=== PATIENT | male | born 1930 | race Caucasian/White ===

== ENCOUNTER 2019-05-22 19:00 | Inpatient (IN) | payer MEDICARE, MEDICAID ==
[~2019-05-22] VITALS: Ht 177.8 cm; Wt 71.8 kg
--- NOTE | 2019-05-22 19:39 | PHYS DOC ---
Past History Past Medical History: CAD Additional Past Medical Histor: dementia with behavioral disturbances Past Surgical History: Coronary Bypass Surgery Adult General Chief Complaint Chief Complaint: PSYCH EVALUATION HPI HPI Patient is an 88-year-old male who presents to the emergency department for medical prescreening for admission to the behavioral health unit, reportedly for refusing care, and aggressive behaviors that his nursing facility per the report that I have received. The report also states that the patient has been complaining of abdominal pain, although the chronicity of this is unknown. This might be a chronic behavioral issue as opposed to an acute medical problem He is complaining of abdominal pain here. He is somewhat of a poor historian, as he gives unreliable information and often answers the same question differently from minute to minute. He has not had any vomiting or diarrhea. He does not appear to have any chest pain. There are no alleviating or exacerbating factors to his symptoms otherwise. Review of Systems Review of Systems Unable to obtain review of systems, secondary to dementia. Physical Exam Physical Exam PHYSICAL EXAM: CONSTITUTIONAL: Well developed, well nourished HEAD: normocephalic, atraumatic EENT: PERRL, EOMI. Conjunctivae normal color, sclerae non-icteric; moist mucous membranes. NECK: Supple, non-tender; no meningismus. LUNGS: Lungs CTA, breathing even and unlabored. Normal air movement. HEART: Regular rate and rhythm, no murmur CHEST: No deformity; non-tender ABDOMEN: The abdomen is soft, normal bowel sounds are present, there is mild diffuse tenderness to palpation to the entire abdomen, without focal tenderness, rebound, or guarding, no masses or bruits. EXTREM: Normal ROM; no deformity, no calf tenderness. Normal pulses palpable in all extremities. There is no pedal edema. SKIN: No rash; no diaphoresis NEURO: Alert; normal speech, impaired cognition, disoriented to time; CN's grossly intact; strength grossly intact without focal deficit. BACK: No CVA TTP. Current Patient Data Lab Results Laboratory Tests Test 05/22/19 19:21 05/22/19 19:40 Urine Collection Type Unknown Urine Color Yellow Urine Clarity Hazy Urine pH 5.0 Urine Specific Procious 1.010 Urine Protein Neg Urine Glucose (UA) Neg mg/dL Urine Ketones (Stick) Neg mg/dL Urine Blood Neg Urine Nitrite Neg Urine Bilirubin Neg Urine Urobilinogen Dipstick 0.2 mg/dL Urine Leukocyte Esterase Trace Urine RBC 0 /HPF Urine WBC 11-20 /HPF Urine Squamous Epithelial Cells None /LPF Urine Bacteria Mod /HPF Urine Hyaline Casts Mod /HPF Urine Mucus Marked /LPF White Blood Count 9.0 x10^3/uL Red Blood Count 3.77 x10^6/uL Hemoglobin 11.3 g/dL Hematocrit 34.2 % Mean Corpuscular Volume 91 fL Mean Corpuscular Hemoglobin 30 pg Mean Corpuscular Hemoglobin Concent 33 g/dL Red Cell Distribution Width 18.0 % Platelet Count 268 x10^3/uL Neutrophils (%) (Auto) 72 % Lymphocytes (%) (Auto) 17 % Monocytes (%) (Auto) 8 % Eosinophils (%) (Auto) 3 % Basophils (%) (Auto) 1 % Neutrophils # (Auto) 6.5 x10^3uL Lymphocytes # (Auto) 1.5 x10^3/uL Monocytes # (Auto) 0.7 x10^3/uL Eosinophils # (Auto) 0.2 x10^3/uL Basophils # (Auto) 0.1 x10^3/uL Prothrombin Time 11.8 SEC Prothromb Time International Ratio 1.1 Activated Partial Thromboplast Time 27 SEC Sodium Level 132 mmol/L Potassium Level 3.9 mmol/L Chloride Level 97 mmol/L Carbon Dioxide Level 26 mmol/L Anion Gap 9 Blood Urea Nitrogen 22 mg/dL Creatinine 1.1 mg/dL Estimated GFR (Cockcroft-Gault) 63.5 BUN/Creatinine Ratio 20 Glucose Level 127 mg/dL Lactic Acid Level 1.4 mmol/L Calcium Level 9.0 mg/dL Magnesium Level 2.1 mg/dL Total Bilirubin 0.3 mg/dL Aspartate Amino Transf (AST/SGOT) 19 U/L Alanine Aminotransferase (ALT/SGPT) 13 U/L Alkaline Phosphatase 79 U/L Troponin I Quantitative < 0.017 ng/mL Total Protein 7.3 g/dL Albumin 3.3 g/dL Albumin/Globulin Ratio 0.8 Lipase 60 U/L Valproic Acid (Depakene) Level < 3 mcg/mL Valproic Acid Last Dose Date Unk Valproic Acid Last Dose Time Unk Current Medications Medications (Trade) Dose Ordered Sig/Rik Route PRN Reason Start Time Stop Time Status Last Admin Dose Admin Iohexol (Omnipaque 300 Mg/ml) 75 ml 1X ONCE IV 05/22/19 21:00 05/22/19 21:01 Ceftriaxone Sodium 1 gm/ Sodium Chloride 50 ml @ 100 mls/hr 1X ONCE IV 05/22/19 20:45 05/22/19 21:14 UNV EKG EKG []Ventricular paced rhythm at a rate of 74 beats for minute with QRS widening, without acute ischemic changes noted. Radiology/Procedures Radiology/Procedures ROCEDURE: CT ABDOMEN PELVIS WO CONTRAST Exam: CT abdomen and pelvis without contrast INDICATION: Abdominal pain TECHNIQUE: Sequential axial images through the abdomen and pelvis obtained without IV contrast. Sagittal and coronal reformatted images were reconstructed from the axial data and reviewed. Comparisons: None FINDINGS: Heart size is normal. No pericardial effusion. Visualized lung bases are clear. No pleural effusion. Evaluation of the solid organs is limited secondary to noncontrast technique as well as respiratory motion. Liver, spleen, pancreas, gallbladder and adrenals are unremarkable. No perinephric inflammation or hydronephrosis. No renal or ureteral calculi are identified. Bladder is distended and appears thin-walled. Prostate is not enlarged. Large and small bowel are unremarkable. Appendix is normal. Small hiatal hernia. No free intra-abdominal air or fluid. No obstruction. Abdominal aorta has a normal course and caliber. No enlarged intra-abdominal lymph nodes are identified. Dynamic hip screws at the right hip. No suspicious osseous lesions or acute fractures. IMPRESSION: 1. Limited evaluation secondary to degree of motion. No acute abnormality is identified. 2. Small hiatal hernia. ER physician preliminary chest x-ray interpretation: Subtle haziness in the left lung base of undetermined etiology without definite infiltrate, no other acute abnormalities noted. [] Course & Med Decision Making Course & Med Decision Making Pertinent Labs and Imaging studies reviewed. (See chart for details) [] Dragon Disclaimer Dragon Disclaimer This electronic medical record was generated, in whole or in part, using a voice recognition dictation system. Departure Departure: Impression: Primary Impression: Dementia with behavioral disturbance Additional Impressions: Urinary tract infection Chronic abdominal pain Disposition: ADMITTED INPATIENT (U) Condition: STABLE Referrals: LATOYA HARRIS MD (PCP) Problem Qualifiers SHASHANK SAUCEDA MD May 22, 2019 19:39
[2019-05-22 20:00] LABS: BASO # 0.1 x10^3/uL (0.0-0.2); BASO % 1 % (0-3); EOS # 0.2 x10^3/uL (0.0-0.7); EOS % 3 % (0-3); HEMATOCRIT 34.2 % (39.0-53.0); HEMOGLOBIN 11.3 g/dL (13.0-17.5); LYMPH # 1.5 x10^3/uL (1.0-4.8); LYMPH % 17 % (24-48); MEAN CORPUSCULAR HEMOGLOBIN 30 pg (25-35); MEAN CORPUSCULAR HGB CONC 33 g/dL (31-37); MEAN CORPUSCULAR VOLUME 91 fL (79-100); MONO # 0.7 x10^3/uL (0.0-1.1); MONO % 8 % (0-9); NEUT # 6.5 x10^3uL (1.8-7.7); NEUT % 72 % (31-73); PLATELET COUNT 268 x10^3/uL (140-400); RED BLOOD COUNT 3.77 x10^6/uL (4.30-5.70)
[2019-05-22 20:14] LABS: ALBUMIN 3.3 g/dL (3.4-5.0); ALBUMIN/GLOBULIN RATIO 0.8 (1.0-1.7); CREATININE 1.1 mg/dL (0.7-1.3); GFR 63.5; POTASSIUM 3.9 mmol/L (3.5-5.1); TOTAL BILIRUBIN 0.3 mg/dL (0.2-1.0); TOTAL PROTEIN 7.3 g/dL (6.4-8.2)
[2019-05-22 20:15] LABS: LIPASE 60 U/L (73-393); VAL ACID < 3 mcg/mL (50-100)
[2019-05-22 20:16] LABS: BACTERIA,URINE MOD /HPF (0-FEW); BILIRUBIN,URINE NEG (NEG); CLARITY,URINE HAZY; COLOR,URINE YELLOW; GLUCOSE,URINE NEG (NEG); NITRITE,URINE NEG (NEG); RBC,URINE 0 /HPF (0-2); UROBILINOGEN,URINE 0.2 mg/dL (0.2 mg/dL)
[2019-05-22 20:17] LABS: HYALINE CASTS, URINE MOD /HPF
[2019-05-22] MEDS ORDERED: IOHEXOL 300 MG/ML 75 ML VIAL. IV ONE (21:00)
--- NOTE | 2019-05-22 21:54 | RAD ---
Exam: CT abdomen and pelvis without contrast INDICATION: Abdominal pain TECHNIQUE: Sequential axial images through the abdomen and pelvis obtained without IV contrast. Sagittal and coronal reformatted images were reconstructed from the axial data and reviewed. Comparisons: None FINDINGS: Heart size is normal. No pericardial effusion. Visualized lung bases are clear. No pleural effusion. Evaluation of the solid organs is limited secondary to noncontrast technique as well as respiratory motion. Liver, spleen, pancreas, gallbladder and adrenals are unremarkable. No perinephric inflammation or hydronephrosis. No renal or ureteral calculi are identified. Bladder is distended and appears thin-walled. Prostate is not enlarged. Large and small bowel are unremarkable. Appendix is normal. Small hiatal hernia. No free intra-abdominal air or fluid. No obstruction. Abdominal aorta has a normal course and caliber. No enlarged intra-abdominal lymph nodes are identified. Dynamic hip screws at the right hip. No suspicious osseous lesions or acute fractures. IMPRESSION: 1. Limited evaluation secondary to degree of motion. No acute abnormality is identified. 2. Small hiatal hernia. Exposure: One or more of the following in the visualized dose reduction techniques were utilized for this examination: 1. Automated exposure control 2. Adjustment of the MA and/or KV according to patient size 3. Use of iterative of reconstructive technique Electronically signed by: Tana Dinero MD (05/22/2019 9:51 PM) [facility]
--- NOTE | 2019-05-22 22:53 | RAD ---
CHEST AP ONLY History: Weakness. Comparison: April 21, 2019 Findings: Linear left midlung scarring or atelectasis. No consolidation or pleural effusion. Normal heart size. Prior median sternotomy. Left sided pacemaker. No pneumothorax. Impression: 1. No acute cardiopulmonary process. Electronically signed by: John Paul Jones DO (05/22/2019 10:51 PM) [facility]
[2019-05-22] MEDS ORDERED: cefTRIAXone SODIUM 1 GM VIAL ONE (23:01)
[2019-05-22] MEDS ORDERED: LIDOCAINE 1% Multi-Dose 20 ML VIAL. ONE (23:01)
--- NOTE | 2019-05-22 23:29 | EKG ---
[address] [address] Test Date: 2019-05-22 Test Time: 21:06:52 Pat Name: EMILY BELTRE Department: Room: Gender: M Hardware Engineer: : [id number] Requested By: SHASHANK SAUCEDA Order Number: [id number] Reading MD: Sj Hansen MD Measurements Intervals Dennis Rate: 74 P: -21 ME: 188 QRS: -73 QRSD: 204 T: 95 QT: 474 QTc: 533 Interpretive Statements SINUS RHYTHM V-PACED Electronically Signed On 06-01-2019 12:01:12 CDT by Sj Hansen MD
[2019-05-22] MEDS ORDERED: cefTRIAXone IM 1 GM VIAL IM ONE (23:30)
[2019-05-22] MEDS ORDERED: PSYL1PAC7 PO (23:49)
[2019-05-22] MEDS ORDERED: LORA-254 PO (23:49)
[2019-05-22] MEDS ORDERED: SUCR1TAB35 PO (23:49)
[2019-05-22] MEDS ORDERED: CHOL10003 PO (23:49)
[2019-05-22] MEDS ORDERED: DICY20TA3 PO (23:49)
[2019-05-22] MEDS ORDERED: [UNRECOGNIZED DRUG - CODE] PO (23:49)
[2019-05-22] MEDS ORDERED: BISA10SU4 RC (23:49)
[2019-05-22] MEDS ORDERED: RANI-376 PO (23:49)
[2019-05-22] MEDS ORDERED: LORA10TA68 PO (23:49)
[2019-05-22] MEDS ORDERED: SUCR1TAB PO (23:49)
[2019-05-22] MEDS ORDERED: POLY17PO5 PO (23:49)
[2019-05-22] MEDS ORDERED: FURO-68 PO (23:49)
[2019-05-22] MEDS ORDERED: GUAI600T47 PO (23:49)
[2019-05-22] MEDS ORDERED: TRAZ-120 PO (23:49)
[2019-05-22] MEDS ORDERED: TRAM50TA PO ×2 (23:49)
[2019-05-22] MEDS ORDERED: ONDA4TAB7 PO (23:49)
[2019-05-22] MEDS ORDERED: SPIR25TA PO (23:49)
[2019-05-22] MEDS ORDERED: DOCU-109 PO (23:49)
[2019-05-22] MEDS ORDERED: CLOP75TA PO (23:49)
[2019-05-22] MEDS ORDERED: MIRA50TA PO (23:49)
[2019-05-22] MEDS ORDERED: CYAN-25 PO (23:49)
[2019-05-22] MEDS ORDERED: IPRA3AMP29 NEB (23:49)
[2019-05-22] MEDS ORDERED: TAMS0.4C97 PO (23:49)
[2019-05-22] MEDS ORDERED: AMLO1TAB12 PO (23:49)
[2019-05-22] MEDS ORDERED: ACET325T9 PO (23:49)
[2019-05-22] MEDS ORDERED: CARV6.25 PO (23:49)
[2019-05-22] MEDS ORDERED: ASPI325T8 PO (23:49)
[2019-05-22] MEDS ORDERED: MAG30ORA2 PO (23:49)
[2019-05-22] MEDS ORDERED: OMEP20TA8 PO (23:49)
[2019-05-22] MEDS ORDERED: BENZ1LOZ48 MM (23:49)
[2019-05-22] MEDS ORDERED: HYDR-2155 PO (23:49)
[2019-05-22] MEDS ORDERED: POTA20TA4 PO (23:49)
[2019-05-22] MEDS ORDERED: WHEA1POW5 PO (23:49)
[2019-05-23] MEDS ORDERED: POLYETHYLENE GLYCOL 3350 17 GM PACKET. PO PRN (00:30)
[2019-05-23] MEDS ORDERED: ACETAMINOPHEN 325 MG TABLET PO PRN ×2 (00:30)
[2019-05-23] MEDS ORDERED: METHYL SALICYLATE/MENTHOL TOPICAL OINTMENT 57GM TUBE. TP PRN (00:30)
[2019-05-23] MEDS ORDERED: BISACODYL 10 MG SUPP.RECT RC PRN (00:30)
[2019-05-23] MEDS ORDERED: BENZOCAINE/MENTHOL LOZNGE 18'S BOX. MM PRN (00:30)
[2019-05-23] MEDS ORDERED: MAGNESIUM HYDROXIDE 2,400 MG/30 ML ORAL.SUSP. PO PRN (00:30)
[2019-05-23] MEDS ORDERED: traMADol 50 MG TABLET PO PRN (00:30)
--- NOTE | 2019-05-23 00:49 | NUR ---
Admission Note with Justification for Admission to [facility] Patient admitted to [facility] for protective oversight for emergency stabilization of acute psychiatric crisis. Pt admitted from: [facility] Facility Mode of arrival: EMS Accompanied By: EMS Precipitating behaviors that initiated intake and admission: Yelling and cussing at staff and other patients. Refusing cares and medications. Description of failure of out patient attempts at stabilization in previous setting list behavior and medication trials: Refusing to take medications Behaviors and assessment findings upon admission: The patient refused to answer approximately half of his assessment questions and was demanding when he did choose to interact with staff. The patient complained of discomfort during any and all interactions with staff. Plan: Admit for protective oversight for adjustment and stabilization of medications, behaviors and mood. Intense treatment regimen including groups, medication adjustments, therapy, consistent regimen for ADL's, self care, and sleep hygiene. Daily monitoring by Inpatient staff, Psychiatry, and Medical Physician.
[2019-05-23 00:58] VITALS: BP 162/79
[2019-05-23] MEDS: ONDANSETRON ODT 4 MG TAB.RAPDIS PO PRN ×2 (03:47→07:52)
[2019-05-23] MEDS: IPRATRPIUM/ALBUTEROL 0.5/2.5MG 3 ML NEBU. NEB SCH ×3 (05:57→20:57)
[2019-05-23 06:25] VITALS: BP 134/88
[2019-05-23] MEDS: HYDROcodone/APAP 5/325MG 1 TAB TABLET PO PRN (07:52)
[2019-05-23] MEDS: LORazepam 0.5 MG TABLET PO PRN (07:53)
[2019-05-23] MEDS: PSYLLIUM SEED (WITH SUGAR) PACKET. PO SCH ×2 (08:16→20:52)
[2019-05-23] MEDS: ASPIRIN 325 MG TABLET PO SCH (08:17)
[2019-05-23] MEDS: MAG HYDROX/AL HYDROX/SIMETH 30 ML ORAL.SUSP PO SCH ×4 (08:17→19:46)
[2019-05-23] MEDS: SUCRALFATE 1 GM TABLET. PO SCH ×4 (08:17→19:55)
[2019-05-23] MEDS: CHOLECALCIFEROL (VITAMIN D3) 1,000 UNIT TABLET PO SCH (08:17)
[2019-05-23] MEDS: FUROSEMIDE 40 MG TABLET PO SCH (08:18)
[2019-05-23] MEDS: LOSARTAN 50 MG TABLET. PO SCH (08:19)
[2019-05-23] MEDS: PANTOPRAZOLE 40 MG TABLET. PO SCH (08:19)
[2019-05-23] MEDS: amLODIPine BESYLATE 5 MG TABLET PO SCH (08:20)
[2019-05-23] MEDS: CYANOCOBALAMIN (VITAMIN B-12) 1,000 MCG TABLET. PO SCH (08:20)
[2019-05-23] MEDS: CLOPIDOGREL BISULFATE 75 MG TABLET PO SCH (08:20)
[2019-05-23] MEDS: POTASSIUM CHLORIDE 20 MEQ TABLET.ER. PO SCH (08:21)
[2019-05-23] MEDS: CETIRIZINE HCL 10 MG TABLET PO SCH (08:21)
[2019-05-23] MEDS: DOCUSATE SODIUM 100 MG CAPSULE PO SCH ×2 (08:22→19:45)
[2019-05-23] MEDS: SPIRONOLACTONE 25 MG TABLET PO SCH (08:23)
[2019-05-23] MEDS: CARVEDILOL 6.25 MG TABLET PO SCH ×2 (08:25→17:23)
[2019-05-23] MEDS: traMADol 50 MG TABLET PO SCH ×2 (08:26→19:47)
--- NOTE | 2019-05-23 09:00 | NUR ---
Nursing note: Pt was compliant with his assessment in the dining room and was in his room for medication administration. He was compliant with taking them whole. Pt continuously calls out for help and needing to go lay down in bed. Staff continues to explain to him that he needs to stay out of his room.
--- NOTE | 2019-05-23 09:33 | NUR ---
Nursing Note: Staff reported that pt was yelling that his stomach was hurting and disturbing the other pt's. When pt asked to rate his pain he immediately began to yell and swear, " I don't do that Goddamn scale. My stomach hurts. It hurts!" Attempted to explain to pt that we were hoping to understand how badly he was hurting in order to treat him. Pt then began to yell louder and to call this nurse and the nurse being oriented to the unit. It was necessary to remove pt from the dining room. Attempted to explained to pt that we understood that he was in pain and that it was being addressed. Pt continued to yell and swear, saying "Go to hell you bitch! Fuck You!! Get me something for the pain!!!" Pt was given medication for pain and for anxiety, and then taken to dining room to eat breakfast. Pt soon after returning to dining room began to yell, "Take me to the bathroom, I need to poop." Pt was taken to his bathroom and helped onto the toilet. Instructed to push button when he was finished. Pt immediately asked to be helped off toilet before staff had left bathroom. Suggested pt stay for a moment to completely evacuate bowels. Pt was not pleased with this idea and yelled and called staff names.
[2019-05-23] MEDS: MIRABEGRON 25 MG TAB.ER.24H PO SCH (09:42)
--- NOTE | 2019-05-23 10:00 | NUR ---
Nursing note: As staff walked by pt in the hallway, the pt called out for help and said he needed to go lie down. When staff explained to him why he couldn't go lay down, he responded with "You're an ass. You've also got a big ass." Pt was redirected and taken to the day room at this time.
--- NOTE | 2019-05-23 11:45 | NUR ---
SW contacted Kaylen, Clear Coat Sprayer at [facility], to discuss pt. and share this SW contact information.
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
[2019-05-23 13:50] LABS: THYROID STIM HORMONE (TSH) 2.652 uIU/mL (0.358-3.740)
[2019-05-23 16:03] VITALS: BP 114/64
--- NOTE | 2019-05-23 19:50 | NUR ---
Nursing note: Pt has a large bruise on his buttocks and flinches when touched. It was reported that the patient put himself on the floor today. Order placed for xray.
[2019-05-23] MEDS: TAMSULOSIN 0.4 MG CAP.ER.24H. PO SCH (19:55)
[2019-05-23] MEDS: traZODone 50 MG TABLET. PO SCH (19:56)
--- NOTE | 2019-05-23 20:57 | NUR ---
Nursing note: Assumed care of pt in his room where he is c/o pain in hip/buttocks. Waiting for xray results. Pt is complaint with meds while one at a time. He didn't want to take them but agreed. He is alert to name only.
[2019-05-23] MEDS ORDERED: PSYLLIUM SEED (WITH SUGAR) PACKET. PO SCH (21:00)
[2019-05-23] MEDS ORDERED: NON FORMULARY ITEM (Ranitidine Hcl (Zantac) 150 MG) PO SCH (21:00)
--- NOTE | 2019-05-23 21:57 | PDOC ---
Exam Note: José Miguel Note: Please also refer to the separate dictated note~for this date of service dictated separately. Discussed the patient with Nursing staff reviewed the chart.~Reviewed interim history and current functioning. Reviewed vital signs,~Labs/ Radiology~and current medications noted below. Continue current treatment with the changes noted in the dictated addendum note Assessment: Vital Signs/I&O: Vital Signs Date Time Temp Pulse Resp B/P (MAP) Pulse Ox O2 Delivery O2 Flow Rate FiO2 05/23/19 20:58 95 Room Air 05/23/19 17:23 65 114/64 05/23/19 16:03 97.3 16 Current Medications: Meds: Current Medications Medications (Trade) Dose Ordered Sig/Rik Route PRN Reason Start Time Stop Time Status Last Admin Dose Admin Ceftriaxone Sodium (Rocephin Im) 1 gm 1X ONCE IM 05/22/19 23:30 05/22/19 23:31 DC 05/22/19 22:40 Lorazepam (Ativan) 0.5 mg PRN Q6HRS PRN PO ANXIETY / AGITATION 05/23/19 00:30 05/23/19 07:53 Aspirin (Neil Aspirin) 325 mg DAILY PO 05/23/19 09:00 05/23/19 08:17 Carvedilol (Coreg) 6.25 mg BIDWMEALS PO 05/23/19 08:00 05/23/19 17:23 Vitamin D (Vitamin D3) 1,000 unit DAILY PO 05/23/19 09:00 05/23/19 08:17 Clopidogrel Bisulfate (Plavix) 75 mg DAILY PO 05/23/19 09:00 05/23/19 08:20 Cyanocobalamin (Vitamin B-12) 1,000 mcg DAILY PO 05/23/19 09:00 05/23/19 08:20 Docusate Sodium (Colace) 100 mg BID PO 05/23/19 09:00 05/23/19 19:45 Furosemide (Lasix) 40 mg DAILY PO 05/23/19 09:00 05/23/19 08:18 Guaifenesin (Mucinex Er) 600 mg BID PO 05/23/19 09:00 05/23/19 19:46 Acetaminophen/ Hydrocodone Bitart (Lortab 5/325) 1 tab PRN Q6HRS PRN PO PAIN 05/23/19 00:30 05/23/19 07:52 Albuterol/ Ipratropium (Duoneb) 3 ml Q4HRS W/A NEB 05/23/19 06:00 05/23/19 20:57 Al Hydroxide/Mg Hydroxide (Mylanta Plus Xs) 30 ml QHS PO 05/23/19 21:00 05/23/19 19:46 Potassium Chloride (Klor-Con) 20 meq DAILY PO 05/23/19 09:00 05/23/19 08:21 Psyllium Hydrophilic Mucilloid (Metamucil) 1 pkt QHS PO 05/23/19 21:00 05/23/19 20:52 DC 05/23/19 19:45 Spironolactone (Aldactone) 25 mg DAILY PO 05/23/19 09:00 05/23/19 08:23 Sucralfate (Carafate) 1 gm QHS PO 05/23/19 21:00 05/23/19 19:55 Sucralfate (Carafate) 1 gm TIDBFRMEAL PO 05/23/19 07:30 05/23/19 16:59 Tamsulosin HCl (Flomax) 0.8 mg QHS PO 05/23/19 21:00 05/23/19 19:55 Tramadol HCl (Ultram) 50 mg BID PO 05/23/19 09:00 05/23/19 19:47 Amlodipine Besylate (Norvasc) 5 mg DAILY PO 05/23/19 09:00 05/23/19 08:20 Cetirizine HCl (ZyrTEC) 10 mg DAILY PO 05/23/19 09:00 05/23/19 08:21 Al Hydroxide/Mg Hydroxide (Mylanta Plus Xs) 5 ml QID PO 05/23/19 09:00 05/23/19 20:49 DC 05/23/19 17:23 Mirabegron (Myrbetriq) 50 mg DAILY PO 05/23/19 09:00 05/23/19 09:42 Pantoprazole Sodium (Protonix) 40 mg DAILYAC PO 05/23/19 07:30 05/23/19 08:19 Ondansetron HCl (Zofran Odt) 4 mg PRN Q6HRS PRN PO NAUSEA/VOMITING 05/23/19 00:45 05/23/19 07:52 Psyllium Hydrophilic Mucilloid (Metamucil) 1 pkt BID PO 05/23/19 09:00 05/23/19 08:16 Trazodone HCl (Desyrel) 50 mg QHS PO 05/23/19 21:00 05/23/19 19:56 Losartan Potassium (Cozaar) 100 mg DAILY PO 05/23/19 09:00 05/23/19 08:19 I have reviewed the current psychotropics carefully including drug interactions. Risk benefit ratio favors no change other than as noted in my dictated progress note. Diagnosis: Problems: (1) Anxiety disorder (2) Dementia in Alzheimer's disease with delusions (3) Dementia in Alzheimer's disease with depression (4) Dementia, vascular, with delusions (5) Dementia, vascular, with depression (6) Bipolar affective, mixed, sev w/ psych WANDA NDIAYE MD May 23, 2019 21:57
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
--- NOTE | 2019-05-23 23:07 | RAD ---
HIP LEFT 2V WITH PELVIS History: Fall. Pain. Technique: AP view the pelvis and 2 additional views of the left hip. Comparison: CT May 22, 2019. Findings: Internal fixation right proximal femur. Normal alignment. No fracture. Extensive vascular calcific. Lower lumbar spondylosis. Postop changes left proximal leg. Impression: 1. No acute osseous abnormality. Electronically signed by: John Paul Jones DO (05/23/2019 11:03 PM) [id number]
[2019-05-24 01:06] LABS: THYROXINE 6.9 ug/dL (4.5-12.0)
--- NOTE | 2019-05-24 04:24 | CONS ---
DATE OF CONSULTATION: REASON FOR CONSULTATION: Medical management. HISTORY OF PRESENT ILLNESS: The patient is an 88-year-old resident at [facility], who was admitted on account of being verbally abusive to staff and peers, refuses cares, refuses labs and medication. Peers are afraid of him. A change in his behavior from his normal, he is usually nicer, yelling "my stomach hurts." Has had GI workup that was unremarkable. The patient was admitted for inpatient psychiatric stabilization. PAST MEDICAL HISTORY: Significant for vitamin deficiency, diverticulitis, hypocalcemia and congestive heart failure. He also has hyperlipidemia. PAST PSYCHIATRIC HISTORY: Significant for bipolar disorder, insomnia as well as anxiety and depression. ALLERGIES: He is allergic to BEE VENOM. MEDICATIONS: He is currently on following medications: He is on loratadine 10 mg daily, dicyclomine 20 mg every 6 hours as needed, DuoNeb 0.5/3.5 mg in 3 mL by nebulizer every 4 hours, Flomax 0.8 mg at bedtime, Plavix 75 mg once a day, carvedilol 6.25 mg twice a day with meals, amlodipine/valsartan for Exforge 1 tablet once a day, spironolactone 25 mg once a day, aspirin 325 mg once a day, hydrocodone/APAP 5/325 one tablet every 6 hours, tramadol 50 mg twice a day, tramadol 50 mg every 6 hours, Tylenol 650 mg every 4 hours, trazodone 50 mg at bedtime, lorazepam 0.5 mg every 6 hours, potassium chloride 20 mEq daily, Mucinex 600 mg twice a day, furosemide 40 mg daily, benzocaine/menthol for Cepacol sore throat lozenges 1 every hour as needed, Mylanta 15 mL as needed 4 times a day, milk of magnesia 30 mL daily p.r.n. for constipation, bisacodyl 10 mg suppository rectally daily p.r.n. for constipation, Colace 100 mg twice a day, polyethylene glycol 17 grams 3 times a day as needed, Metamucil 3.4 g p.o. at bedtime, wheat dextrin for Benefiber 1 packet twice a day, ondansetron 4 mg every 6 hours, ranitidine 150 mg at bedtime, sucralfate 1 g at bedtime, sucralfate 3 times a day with meals. He is on omeprazole 20 mg twice a day, Myrbetriq 50 mg daily, vitamin B12 1000 mcg daily, cholecalciferol 1000 International Unit once a day. FAMILY HISTORY: Noncontributory. SOCIAL HISTORY: He is a resident at [facility]. He apparently has a son and daughter. He was an ex-smoker, quit years ago. He does not drink alcohol or use any recreational drugs. PHYSICAL EXAMINATION: GENERAL: On examining him, he looked well and was clearly in no apparent respiratory distress. No pallor, jaundice, cyanosis or thyromegaly. No jugular venous distention. No lower limb edema. VITAL SIGNS: His heart rate was 92, blood pressure was 162/79, temperature was 97.9, respiratory rate was 27 and oxygen saturation was 93% on room air. HEAD, EYES, EARS, NOSE AND THROAT: Showed normocephalic, atraumatic. NECK: Supple. HEART: Showed normal first and second heart sounds. No gallop or murmur. CHEST: Clear to auscultation. No crepitation, rhonchi. ABDOMEN: Distended, soft, nontender. NEUROLOGIC: He is awake, alert, responding appropriately. All cranial nerves intact. EXTREMITIES: He moves extremities without difficulty, though is mostly bed bound, wheelchair bound. LABORATORY DATA: Showed a white cell count 9000, hemoglobin 11, hematocrit 34, MCV 91, and platelet count 268,000. His chemistry showed a serum sodium of 132, potassium 3.9, chloride 97, bicarbonate 26, anion gap of 9, BUN 22, creatinine 1.1, estimated GFR was 63 mL per minute. His glucose 127. Lactic acid was 1.4, calcium was 9, magnesium was 2.1. Total bilirubin, AST, ALT, alkaline phosphatase were normal. Total protein was 7.3, albumin was 3.3. His prothrombin time, INR and aPTT were normal. Urinalysis showed that the urine was yellow, hazy with a pH of 5, specific gravity of 1.010. The urine was negative for protein, glucose, ketone, blood, nitrite and leukocyte esterase. There are 0 rbc's, 11-20 wbc's, moderate amount of bacteria, and his toxic screen showed that his valproic acid is less than 3 mcg/mL. His chest x-ray showed no acute cardiopulmonary process, and CT scan of the abdomen and pelvis showed that the heart size is normal, no pericardial effusion. Visualized lung bases are clear, no pleural effusion. Evaluation of the solid organs is limited secondary to noncontrast technique as well as respiratory motion. His liver, spleen, pancreas, gallbladder and adrenals are unremarkable. No perinephric inflammation or hydronephrosis, no renal or ureteral calculi are identified. Bladder is distended and appears thin walled. Prostate is not enlarged. His large and small bowel are unremarkable. Appendix normal. Small hiatal hernia. No free intraabdominal air or fluid. No obstruction. Abdominal aorta has a normal course and caliber. No enlarged intraabdominal lymph nodes are identified. He has a dynamic hip screw within the right hip. No suspicious osseous lesion or acute fracture. IMPRESSION: In summary, this is an 88-year-old male patient who was admitted on account of being verbally abusive to staff and peers, refuses care, labs and medications: The peers are afraid of him, a change in behavior from his usually nicer attitude. He is yelling "my stomach hurts." He has a full GI workup, which was unremarkable. The patient is known to have anxiety, depression, and major depressive disorder. He is here for inpatient psychiatric stabilization. He is generally medically stable. All his vital signs are within acceptable range. His lab work is also within normal range. I will continue all his current medications and we will follow all his lab work that are still pending and make any necessary recommendation. Thank you Dr. Carbajal for allowing me to participate in the care of this patient. JONNA LAMAS MD DR: JEANNINE/andrew JOB#: [id number] / [id number]
[2019-05-24] MEDS: IPRATRPIUM/ALBUTEROL 0.5/2.5MG 3 ML NEBU. NEB SCH ×5 (04:59→20:15)
[2019-05-24 06:31] VITALS: BP 125/71
[2019-05-24] MEDS: ASPIRIN 325 MG TABLET PO SCH (07:36)
[2019-05-24] MEDS: traMADol 50 MG TABLET PO SCH ×2 (07:37→19:40)
[2019-05-24] MEDS: CLOPIDOGREL BISULFATE 75 MG TABLET PO SCH (07:38)
[2019-05-24] MEDS: PSYLLIUM SEED (WITH SUGAR) PACKET. PO SCH ×2 (07:38→19:39)
[2019-05-24] MEDS: amLODIPine BESYLATE 5 MG TABLET PO SCH (07:38)
[2019-05-24] MEDS: SUCRALFATE 1 GM TABLET. PO SCH ×4 (07:38→19:38)
[2019-05-24] MEDS: SPIRONOLACTONE 25 MG TABLET PO SCH (07:39)
[2019-05-24] MEDS: CHOLECALCIFEROL (VITAMIN D3) 1,000 UNIT TABLET PO SCH (07:39)
[2019-05-24] MEDS: CYANOCOBALAMIN (VITAMIN B-12) 1,000 MCG TABLET. PO SCH (07:39)
[2019-05-24] MEDS: FUROSEMIDE 40 MG TABLET PO SCH (07:40)
[2019-05-24] MEDS: LOSARTAN 50 MG TABLET. PO SCH (07:40)
[2019-05-24] MEDS: PANTOPRAZOLE 40 MG TABLET. PO SCH (07:40)
[2019-05-24] MEDS: CARVEDILOL 6.25 MG TABLET PO SCH ×2 (07:41→17:14)
[2019-05-24] MEDS: DOCUSATE SODIUM 100 MG CAPSULE PO SCH ×2 (07:41→19:38)
[2019-05-24] MEDS: POTASSIUM CHLORIDE 20 MEQ TABLET.ER. PO SCH (07:41)
[2019-05-24] MEDS: CETIRIZINE HCL 10 MG TABLET PO SCH (07:42)
[2019-05-24] MEDS: MIRABEGRON 25 MG TAB.ER.24H PO SCH (07:43)
[2019-05-24] MEDS: MAG HYDROX/AL HYDROX/SIMETH 30 ML ORAL.SUSP PO SCH ×4 (07:48→19:40)
[2019-05-24 16:19] VITALS: BP 132/80
--- NOTE | 2019-05-24 17:17 | NUR ---
Had been demanding and agitated in a.m. Compliant with meds and breakfast. Began yelling and cursing after breakfast in the dayroom. Demanding to go to bed, cursing out aide and other staff. Pt. put to bed and slept through lunch, now at supper time c/o stomach cramping and eating only bites of food. Missed one neb treatment, will give another one now after supper. Has been compliant with meds this day. No sexual behaviors
[2019-05-24] MEDS: ONDANSETRON ODT 4 MG TAB.RAPDIS PO PRN (17:36)
[2019-05-24] MEDS: TAMSULOSIN 0.4 MG CAP.ER.24H. PO SCH (19:39)
[2019-05-24] MEDS: traZODone 50 MG TABLET. PO SCH (19:39)
--- NOTE | 2019-05-24 23:05 | NUR ---
Nursing note: Assumed care of pt in the day room tonight. He was calmer than earlier in the day but continued to ask to go to bed. He was advised he had to take a shower. He was accepting of this but had somatic complaints such as being cold and sleepy. He was compliant with meds, assessment, and shower. No agitation and no cursing that I heard. He had no c/o pain, no sexually inappropriate behaviors.
--- NOTE | 2019-05-24 23:06 | PDOC ---
Exam Note: José Miguel Note: Please also refer to the separate dictated note~for this date of service dictated separately.~Patient seen individually. Discussed the patient with Nursing staff reviewed the chart.~Reviewed interim history and current functioning. Reviewed vital signs,~Labs/ Radiology~and current medications noted below. Continue current treatment with the changes noted in the dictated addendum note Assessment: Vital Signs/I&O: Vital Signs Date Time Temp Pulse Resp B/P (MAP) Pulse Ox O2 Delivery O2 Flow Rate FiO2 05/24/19 20:40 18 95 Room Air 05/24/19 17:14 82 132/80 05/24/19 16:19 97.7 I & O 05/23/19 05/23/19 05/24/19 14:59 22:59 06:59 Intake Total 480 ml 0 ml Balance 480 ml 0 ml Current Medications: Meds: Current Medications Medications (Trade) Dose Ordered Sig/Rik Route PRN Reason Start Time Stop Time Status Last Admin Dose Admin Al Hydroxide/Mg Hydroxide (Mylanta Plus Xs) 5 ml TID PO 05/24/19 09:00 05/24/19 16:45 I have reviewed the current psychotropics carefully including drug interactions. Risk benefit ratio favors no change other than as noted in my dictated progress note. Diagnosis: Problems: (1) Anxiety disorder (2) Dementia in Alzheimer's disease with delusions (3) Dementia in Alzheimer's disease with depression (4) Dementia, vascular, with delusions (5) Dementia, vascular, with depression (6) Bipolar affective, mixed, sev w/ psych WANDA NDIAYE MD May 24, 2019 23:06
[2019-05-25 04:55] VITALS: BP 113/71
[2019-05-25] MEDS: IPRATRPIUM/ALBUTEROL 0.5/2.5MG 3 ML NEBU. NEB SCH ×5 (05:27→22:32)
[2019-05-25] MEDS: SUCRALFATE 1 GM TABLET. PO SCH ×4 (08:04→19:48)
[2019-05-25] MEDS: PSYLLIUM SEED (WITH SUGAR) PACKET. PO SCH ×2 (08:06→19:49)
[2019-05-25] MEDS: CARVEDILOL 6.25 MG TABLET PO SCH ×2 (08:07→17:17)
[2019-05-25] MEDS: traMADol 50 MG TABLET PO SCH ×2 (08:08→19:47)
[2019-05-25] MEDS: MAG HYDROX/AL HYDROX/SIMETH 30 ML ORAL.SUSP PO SCH ×4 (08:08→20:05)
[2019-05-25] MEDS: CYANOCOBALAMIN (VITAMIN B-12) 1,000 MCG TABLET. PO SCH (08:09)
[2019-05-25] MEDS: CHOLECALCIFEROL (VITAMIN D3) 1,000 UNIT TABLET PO SCH (08:09)
[2019-05-25] MEDS: CLOPIDOGREL BISULFATE 75 MG TABLET PO SCH (08:09)
[2019-05-25] MEDS: CETIRIZINE HCL 10 MG TABLET PO SCH (08:09)
[2019-05-25] MEDS: ASPIRIN 325 MG TABLET PO SCH (08:09)
[2019-05-25] MEDS: LOSARTAN 50 MG TABLET. PO SCH (08:09)
[2019-05-25] MEDS: SPIRONOLACTONE 25 MG TABLET PO SCH (08:10)
[2019-05-25] MEDS: PANTOPRAZOLE 40 MG TABLET. PO SCH (08:10)
[2019-05-25] MEDS: FUROSEMIDE 40 MG TABLET PO SCH (08:10)
[2019-05-25] MEDS: DOCUSATE SODIUM 100 MG CAPSULE PO SCH ×2 (08:10→19:47)
[2019-05-25] MEDS: amLODIPine BESYLATE 5 MG TABLET PO SCH (08:11)
[2019-05-25] MEDS: MIRABEGRON 25 MG TAB.ER.24H PO SCH (08:12)
[2019-05-25] MEDS: POTASSIUM CHLORIDE 20 MEQ TABLET.ER. PO SCH (08:12)
[2019-05-25 16:20] VITALS: BP 113/60
[2019-05-25] MEDS: ONDANSETRON ODT 4 MG TAB.RAPDIS PO PRN (18:40)
[2019-05-25] MEDS: TAMSULOSIN 0.4 MG CAP.ER.24H. PO SCH (19:47)
[2019-05-25] MEDS: traZODone 50 MG TABLET. PO SCH (20:05)
--- NOTE | 2019-05-25 23:14 | NUR ---
Nursing Note: Assumed care of pt. this evening, he was sitting out in the day room. He has been cooperative, demanding in the sense that he will keep asking to go to bed until he get to, and withdrawn to self. He has been compliant with taking his HS meds whole. No agitation or aggression noted at this time.
[2019-05-26] MEDS: IPRATRPIUM/ALBUTEROL 0.5/2.5MG 3 ML NEBU. NEB SCH ×5 (06:00→20:30)
[2019-05-26 06:19] VITALS: BP 129/80
--- NOTE | 2019-05-26 07:57 | PN ---
DATE: 05/24/2019 PSYCHIATRIC PROGRESS NOTE This late entry 05/24/2019 covers elements not covered in my initial note. SUBJECTIVE: I met with the patient at length individually in the morning of 05/24/2019. The patient slept 8 hours the previous night. He remains confused and anxious. REVIEW OF SYSTEMS: No CV, , pulmonary, eye, ENT system symptoms on review. MENTAL STATUS EXAM: Oriented to himself. Insight, judgment, recent and remote memory, attention, concentration, fund of knowledge poor, consistent with his diagnosis. IMPRESSION: Major neurocognitive disorder, Alzheimer, vascular with delusion, depression, behavioral disturbance, anxiety disorder, unspecified, impulse control disorder, unspecified. PLAN: No change from initial note. Maintain trazodone 50 mg at bedtime and Ativan p.r.n. We will consider adding Depakote as a mood stabilizer for his marked agitation, aggression, behavioral dyscontrol, prompting admission. We may also consider adding an atypical antipsychotic, possibly an SSRI agent, but we will make this decision after baseline assessment. Dr. Mills will resume care of the patient during my vacation over the next few days. MAN Gabriela NDIAYE MD DR: JONATAN/andrew JOB#: [id number] / [id number]
[2019-05-26] MEDS: HYDROcodone/APAP 5/325MG 1 TAB TABLET PO PRN (07:58)
[2019-05-26] MEDS: DICYCLOMINE HCL 20 MG TABLET PO PRN ×2 (07:58→19:59)
[2019-05-26] MEDS: CETIRIZINE HCL 10 MG TABLET PO SCH (07:59)
[2019-05-26] MEDS: CHOLECALCIFEROL (VITAMIN D3) 1,000 UNIT TABLET PO SCH (07:59)
[2019-05-26] MEDS: PANTOPRAZOLE 40 MG TABLET. PO SCH (07:59)
[2019-05-26] MEDS: PSYLLIUM SEED (WITH SUGAR) PACKET. PO SCH ×2 (07:59→19:59)
[2019-05-26] MEDS: MAG HYDROX/AL HYDROX/SIMETH 30 ML ORAL.SUSP PO SCH ×4 (07:59→20:06)
[2019-05-26] MEDS: FUROSEMIDE 40 MG TABLET PO SCH (07:59)
[2019-05-26] MEDS: ASPIRIN 325 MG TABLET PO SCH (08:00)
[2019-05-26] MEDS: POTASSIUM CHLORIDE 20 MEQ TABLET.ER. PO SCH (08:00)
[2019-05-26] MEDS: traMADol 50 MG TABLET PO SCH ×2 (08:00→20:00)
[2019-05-26] MEDS: LOSARTAN 50 MG TABLET. PO SCH (08:00)
[2019-05-26] MEDS: DOCUSATE SODIUM 100 MG CAPSULE PO SCH ×2 (08:00→20:02)
[2019-05-26] MEDS: CLOPIDOGREL BISULFATE 75 MG TABLET PO SCH (08:00)
[2019-05-26] MEDS: SUCRALFATE 1 GM TABLET. PO SCH ×4 (08:00→20:10)
[2019-05-26] MEDS: SPIRONOLACTONE 25 MG TABLET PO SCH (08:01)
[2019-05-26] MEDS: CARVEDILOL 6.25 MG TABLET PO SCH ×2 (08:01→17:42)
[2019-05-26] MEDS: CYANOCOBALAMIN (VITAMIN B-12) 1,000 MCG TABLET. PO SCH (08:01)
[2019-05-26] MEDS: amLODIPine BESYLATE 5 MG TABLET PO SCH (08:01)
[2019-05-26] MEDS: MIRABEGRON 25 MG TAB.ER.24H PO SCH (09:00)
--- NOTE | 2019-05-26 09:47 | NUR ---
PATIENT LOCATED IN DINING ROOM AT TIME OF ASSESSMENT AND MEDICATION ADMINISTRATION. PATIENT IS PLEASANT AND COOPERATIVE WITH ASSESSMENT AND MEDICATIONS WHOLE WITH WATER. PATIENT COMPLAINS OF ABDOMINAL PAIN THIS AM. PT IS GIVEN PRN HYDROCODONE AND PRN BENTYL FOR ABD PAIN. PATIENT DOES HAVE SOME BEHAVIORS THIS AM ASKING OVER AND OVER TO USE BATHROOM AND TELLING WASTE MACHINE OPERATOR TO "GO FUCK YOURSELF". PATIENT ESCORTED TO [facility] TO DEESCALATE. PT DID HAVE A BM THIS AM AND IS NOW RESTING AT THIS TIME. WILL CONTINUE TO MONITOR.
--- NOTE | 2019-05-26 15:36 | PN ---
DATE: 05/25/2019 SUBJECTIVE: The patient was seen today, met with the staff, chart reviewed, and covering for Dr. Carbajal. The patient was admitted 3 days ago because of change in his behavior, staying in bed all the time, withdrawn. He was also recently has been verbally abusive to staff and peers refusing cares and also refusing labs and medications. The patient also threatening towards other residents. The patient also has been presenting with multiple physical complaints. OBSERVATION: VITAL SIGNS: Temperature 97.4, blood pressure 113/71, pulse 72, respiration 18, O2 sat 94% and slept about 6 hours last night. CURRENT MEDICATIONS: Reviewed. Currently on trazodone 50 mg at night. The patient under observation continued to monitor his behaviors and decide whether he needs to be on antidepressant or mood stabilizer. ASSESSMENT: Major neurocognitive disorder, most likely Alzheimer's, vascular with delusions, depression, behavioral disturbances; anxiety disorder, unspecified; bipolar disorder, mixed with psychotic features. PLAN: To continue with the current treatment plan. LANIE MILLER MD DR: HAL/andrew JOB#: [id number] / [id number]
--- NOTE | 2019-05-26 16:25 | NUR ---
ACTIVITY THERAPY ASSESSMENT Completed based on observation, notes and attempted interview. Pt. was in the secured hallway at this time, yelling out, complaining of pain, wanting to lay down. He was banging on the window in distress and was unable to answer assessment questions. Pt. often wants to lay down in bed and has little interest in leisure activities. He has been observed to read the newspaper and enjoys the [employer]. Per notes, Pt. likes baseball and used to drink for leisure. On the unit, Pt. is combative, aggressive, cusses at staff and is difficult to redirect. He has put himself on the floor and has demonstrated attention seeking behaviors. SPINNING BATH PATROLLER observed Pt. threaten to urinate on the floor if he was not allowed to go to bed. Pt. is hard of hearing and it's difficult to capture and keep his attentions. Initial goal aimed to increase engagement: Pt. will participate in at least three Activity Therapy individual sessions or groups before discharge.
[2019-05-26 16:43] VITALS: BP 121/58
[2019-05-26] MEDS: traZODone 50 MG TABLET. PO SCH (20:00)
[2019-05-26] MEDS: TAMSULOSIN 0.4 MG CAP.ER.24H. PO SCH (20:08)
[2019-05-26] MEDS: busPIRone 5 MG TABLET. PO SCH (20:10)
--- NOTE | 2019-05-27 00:37 | NUR ---
Nursing Note: Assumed care of pt. this evening, he was lying in his bed. He has been calm, cooperative, withdrawn to self, and at times demanding. He has been compliant with taking his HS meds whole this evening. No agitation or aggression noted at this time.
[2019-05-27] MEDS: IPRATRPIUM/ALBUTEROL 0.5/2.5MG 3 ML NEBU. NEB SCH ×4 (05:18→23:54)
--- NOTE | 2019-05-27 05:33 | PN ---
DATE: 05/26/2019 SUBJECTIVE: The patient was seen today, met with the staff, chart reviewed. Staff reports he is still attention seeking, intrusive, demanding, also having multiple somatic complaints. The patient is on wheelchair. Staff reports no falls. OBSERVATION: VITAL SIGNS: Temperature 97.1, blood pressure 128/80, pulse 80, respiration 18, O2 sat 96%. GENERAL: Slept about 8 hours last night. The patient's appetite is fairly good. The patient weighs 156.8 pounds. CURRENT MEDICATIONS: Include trazodone 50 mg at night. LABORATORY DATA: The patient's lab reviewed. ASSESSMENT: 1. 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 2. Anxiety disorder, unspecified. 3. Bipolar disorder, mixed with psychotic features. PLAN: To continue with the treatment. The patient will be started on buspirone 5 mg t.i.d. for his anxiety and agitation. LANIE MILLER MD DR: HAL/andrew JOB#: [id number] / [id number]
[2019-05-27] MEDS: DICYCLOMINE HCL 20 MG TABLET PO PRN (06:07)
[2019-05-27 06:10] VITALS: BP 128/71
[2019-05-27] MEDS: PANTOPRAZOLE 40 MG TABLET. PO SCH (10:05)
[2019-05-27] MEDS: MIRABEGRON 25 MG TAB.ER.24H PO SCH (10:05)
[2019-05-27] MEDS: amLODIPine BESYLATE 5 MG TABLET PO SCH (10:06)
[2019-05-27] MEDS: POTASSIUM CHLORIDE 20 MEQ TABLET.ER. PO SCH (10:06)
[2019-05-27] MEDS: CETIRIZINE HCL 10 MG TABLET PO SCH (10:06)
[2019-05-27] MEDS: traMADol 50 MG TABLET PO SCH ×2 (10:06→21:20)
[2019-05-27] MEDS: MAG HYDROX/AL HYDROX/SIMETH 30 ML ORAL.SUSP PO SCH ×4 (10:07→21:21)
[2019-05-27] MEDS: PSYLLIUM SEED (WITH SUGAR) PACKET. PO SCH ×2 (10:07→21:21)
[2019-05-27] MEDS: SUCRALFATE 1 GM TABLET. PO SCH ×5 (10:07→21:21)
[2019-05-27] MEDS: busPIRone 5 MG TABLET. PO SCH ×3 (10:07→21:20)
[2019-05-27] MEDS: CLOPIDOGREL BISULFATE 75 MG TABLET PO SCH (10:08)
[2019-05-27] MEDS: LOSARTAN 50 MG TABLET. PO SCH (10:08)
[2019-05-27] MEDS: ASPIRIN 325 MG TABLET PO SCH (10:08)
[2019-05-27] MEDS: CARVEDILOL 6.25 MG TABLET PO SCH ×2 (10:08→16:16)
[2019-05-27] MEDS: CHOLECALCIFEROL (VITAMIN D3) 1,000 UNIT TABLET PO SCH (10:09)
[2019-05-27] MEDS: FUROSEMIDE 40 MG TABLET PO SCH (10:09)
[2019-05-27] MEDS: SPIRONOLACTONE 25 MG TABLET PO SCH (10:09)
[2019-05-27] MEDS: DOCUSATE SODIUM 100 MG CAPSULE PO SCH ×2 (10:09→21:20)
[2019-05-27] MEDS: CYANOCOBALAMIN (VITAMIN B-12) 1,000 MCG TABLET. PO SCH (10:09)
[2019-05-27] MEDS: LORazepam 0.5 MG TABLET PO PRN (16:15)
[2019-05-27 16:22] VITALS: BP 126/62
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
[2019-05-27] MEDS: traZODone 50 MG TABLET. PO SCH (21:20)
[2019-05-27] MEDS: TAMSULOSIN 0.4 MG CAP.ER.24H. PO SCH (21:21)
--- NOTE | 2019-05-28 00:32 | NUR ---
Nursing Note the patient was located in his room for his medication and assessment. the patient took his medication whole and was appropriate with this nurse during interactions. The patient is currently sleeping in his room.
[2019-05-28 05:59] VITALS: BP 142/84
[2019-05-28] MEDS: IPRATRPIUM/ALBUTEROL 0.5/2.5MG 3 ML NEBU. NEB SCH ×4 (06:00→19:58)
--- NOTE | 2019-05-28 07:19 | PN ---
DATE: 05/27/2019 SUBJECTIVE: The patient was seen today, met with the staff, chart reviewed. The patient is staying in bed most of the time. The patient is complaining of feeling tired. He has been withdrawn, isolative and also highly anxious. OBSERVATION: VITAL SIGNS: Temperature 97.4, blood pressure 128/71, pulse 80, respirations 22, O2 sat 95%. GENERAL: Slept about 7.75 hours. MEDICATIONS: The patient's current medications include trazodone 50 mg at night, BuSpar 5 mg t.i.d. and Ativan 0.5 mg q. 6 hours p.r.n. The patient is not having any side effects to medications. LABORATORY DATA: The patient's lab is reviewed. ASSESSMENT: 1. 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 2. Anxiety disorder, unspecified. 3. Bipolar disorder, mixed with psychotic features. PLAN: To continue with the treatment. LANIE MILLER MD DR: HAL/andrew JOB#: [id number] / [id number]
[2019-05-28] MEDS: SUCRALFATE 1 GM TABLET. PO SCH ×4 (08:31→21:56)
[2019-05-28] MEDS: PANTOPRAZOLE 40 MG TABLET. PO SCH (08:31)
[2019-05-28] MEDS: CETIRIZINE HCL 10 MG TABLET PO SCH (08:32)
[2019-05-28] MEDS: CHOLECALCIFEROL (VITAMIN D3) 1,000 UNIT TABLET PO SCH (08:32)
[2019-05-28] MEDS: CYANOCOBALAMIN (VITAMIN B-12) 1,000 MCG TABLET. PO SCH (08:32)
[2019-05-28] MEDS: CLOPIDOGREL BISULFATE 75 MG TABLET PO SCH (08:32)
[2019-05-28] MEDS: LOSARTAN 50 MG TABLET. PO SCH (08:33)
[2019-05-28] MEDS: DOCUSATE SODIUM 100 MG CAPSULE PO SCH ×2 (08:33→21:56)
[2019-05-28] MEDS: busPIRone 5 MG TABLET. PO SCH ×3 (08:33→21:56)
[2019-05-28] MEDS: FUROSEMIDE 40 MG TABLET PO SCH (08:34)
[2019-05-28] MEDS: ASPIRIN 325 MG TABLET PO SCH (08:34)
[2019-05-28] MEDS: SPIRONOLACTONE 25 MG TABLET PO SCH (08:34)
[2019-05-28] MEDS: PSYLLIUM SEED (WITH SUGAR) PACKET. PO SCH ×2 (08:34→21:55)
[2019-05-28] MEDS: POTASSIUM CHLORIDE 20 MEQ TABLET.ER. PO SCH (08:35)
[2019-05-28] MEDS: CARVEDILOL 6.25 MG TABLET PO SCH ×2 (08:35→16:54)
[2019-05-28] MEDS: MAG HYDROX/AL HYDROX/SIMETH 30 ML ORAL.SUSP PO SCH ×4 (08:35→21:55)
[2019-05-28] MEDS: MIRABEGRON 25 MG TAB.ER.24H PO SCH (08:36)
[2019-05-28] MEDS: amLODIPine BESYLATE 5 MG TABLET PO SCH (08:36)
[2019-05-28] MEDS: LORazepam 0.5 MG TABLET PO PRN ×2 (08:36→14:03)
[2019-05-28] MEDS: traMADol 50 MG TABLET PO SCH ×2 (08:50→21:55)
--- NOTE | 2019-05-28 11:35 | NUR ---
Patient was in the dining room when he was getting frustrated with staff, started calling staff "bitches". Patient is still obsessive with stomach pain, and needed to go to the bathroom. Patient's stomach is soft, hyperactive bowel sounds, patient just had a BM. PRN ativan given @0836. Patient is now in the dayroom, will continue to monitor.
--- NOTE | 2019-05-28 12:13 | NUR ---
Patient is very angry that he is not allowed to lay in his bed all morning. Nurse encouraged patient to attend activities but he declines and curses at staff. Patient spent the morning sitting near the [facility] verbally abusing staff. And demanding to be put to bed. Patient has been constantly cursing at nurse saying "You fucking bitch", "you look like you been fucked" and other equally insulting comments.
--- NOTE | 2019-05-28 12:48 | NUR ---
WEEKLY ACTIVITY THERAPY NOTE Date of Admission: 05/23/2019 Date of AT Assessment: 05/27/2019 Goal aimed: to increase engagement Initial Goal: Pt. will participate in at least three Activity Therapy individual sessions or groups before discharge. Weekly progress towards goal: on track, 0/3 before goal was set, two groups before goal was set (1012- [employer] party, 05/26- exercise/ balloon volleyball Group participation level: full in both groups Weekly highlights: enjoying the [employer] game and [employer] Behaviors observed: CROW, wanting to lay in bed, yelling out in pain (stomach), cussing at staff, secured hallway on Sunday, threatening to urinate in hallway Plan: no change to goal Beneficial adaptations: hearing amplifier possibly
--- NOTE | 2019-05-28 14:03 | NUR ---
LYNDSAY spoke to pt. daughter, Jocelynn, regarding pt. progress. LYNDSAY contacted JULIO Abdullahi at [facility], to share pt. progress. At this time, no discharge date has been determined, as pt. behaviors continue. Addendum: 05/28/19 at 1435 by LINDSEY UMANA Pt. daughter did share pt. enjoys reading the newspaper.
--- NOTE | 2019-05-28 14:11 | NUR ---
WEEKLY NOTE Pt. remains confused and anxious. Pt. is demanding towards staff, requesting to lay in his room. Pt. has been verbally abusive towards staff and becomes angry when he does not get what he wants. Pt. has been compliant with medications. Pt. is preoccupied with needing to use the restroom and complains of stomach discomfort. Pt. will discharge back to [facility] once stable.
--- NOTE | 2019-05-28 15:52 | NUR ---
Patient was upset with staff, yelling, calling them bitches and disrupting group PRN ativan given @1403. Patient is currently in the quiet black, will continue to monitor.
[2019-05-28 16:16] VITALS: BP 142/62
[2019-05-28] MEDS: TAMSULOSIN 0.4 MG CAP.ER.24H. PO SCH (21:55)
[2019-05-28] MEDS: traZODone 50 MG TABLET. PO SCH (21:56)
--- NOTE | 2019-05-29 00:02 | NUR ---
Nursing Note The patient was located in his room for his medication and assessment. the patient was compliant with his medication and took them whole. the patient was appropriate during interactions with this nurse but was irritable earlier in the shift during interactions with peers and other staff members. the patient is currently sleeping in his room.
[2019-05-29] MEDS: IPRATRPIUM/ALBUTEROL 0.5/2.5MG 3 ML NEBU. NEB SCH ×3 (06:26→15:56)
[2019-05-29 06:36] VITALS: BP 140/72
--- NOTE | 2019-05-29 09:13 | PN ---
DATE: 05/28/2019 SUBJECTIVE: The patient was seen today, met with the staff, chart reviewed. The patient continues to complain of feeling tired and weak, appears depressed, and stays in bed most of the time. OBSERVATION: VITAL SIGNS: Temperature 97.2, blood pressure 142/84, pulse 65, respirations 20, O2 sat 95%. GENERAL: Slept about 6 hours last night. CURRENT MEDICATIONS: The patient's current medications include trazodone 50 mg at night, BuSpar 5 mg t.i.d. and Ativan 0.5 mg q. 6 hours p.r.n. The patient will be considered for antidepressants. LABORATORY DATA: The patient's lab is reviewed. The patient's hemoglobin A1c was 6. ASSESSMENT: 1. 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 2. Anxiety disorder, unspecified. 3. Bipolar disorder, mixed with psychotic features. PLAN: To continue with the treatment. LANIE MILLER MD DR: HAL/andrew JOB#: [id number] / [id number]
[2019-05-29] MEDS: SUCRALFATE 1 GM TABLET. PO SCH ×4 (09:20→21:11)
[2019-05-29] MEDS: PANTOPRAZOLE 40 MG TABLET. PO SCH (09:20)
[2019-05-29] MEDS: SPIRONOLACTONE 25 MG TABLET PO SCH (09:21)
[2019-05-29] MEDS: busPIRone 5 MG TABLET. PO SCH ×3 (09:21→21:11)
[2019-05-29] MEDS: ASPIRIN 325 MG TABLET PO SCH (09:21)
[2019-05-29] MEDS: CARVEDILOL 6.25 MG TABLET PO SCH ×2 (09:21→16:42)
[2019-05-29] MEDS: DOCUSATE SODIUM 100 MG CAPSULE PO SCH ×2 (09:21→21:12)
[2019-05-29 09:22] LABS: BASO # 0.1 x10^3/uL (0.0-0.2); BASO % 1 % (0-3); EOS # 0.2 x10^3/uL (0.0-0.7); EOS % 2 % (0-3); HEMATOCRIT 36.6 % (39.0-53.0); HEMOGLOBIN 12.2 g/dL (13.0-17.5); LYMPH # 1.2 x10^3/uL (1.0-4.8); LYMPH % 12 % (24-48); MEAN CORPUSCULAR HEMOGLOBIN 30 pg (25-35); MEAN CORPUSCULAR HGB CONC 33 g/dL (31-37); MEAN CORPUSCULAR VOLUME 91 fL (79-100); MONO # 0.6 x10^3/uL (0.0-1.1); MONO % 6 % (0-9); NEUT % 79 % (31-73); PLATELET COUNT 317 x10^3/uL (140-400); RED BLOOD COUNT 4.03 x10^6/uL (4.30-5.70); RED CELL DISTRIBUTION WIDTH 18.6 % (11.5-14.5); WHITE BLOOD COUNT 10.1 x10^3/uL (4.0-11.0)
[2019-05-29] MEDS: POTASSIUM CHLORIDE 20 MEQ TABLET.ER. PO SCH (09:22)
[2019-05-29] MEDS: LOSARTAN 50 MG TABLET. PO SCH (09:22)
[2019-05-29] MEDS: FUROSEMIDE 40 MG TABLET PO SCH (09:22)
[2019-05-29] MEDS: MIRABEGRON 25 MG TAB.ER.24H PO SCH (09:23)
[2019-05-29] MEDS: MAG HYDROX/AL HYDROX/SIMETH 30 ML ORAL.SUSP PO SCH ×4 (09:23→21:11)
[2019-05-29] MEDS: PSYLLIUM SEED (WITH SUGAR) PACKET. PO SCH ×2 (09:23→21:10)
--- NOTE | 2019-05-29 09:23 | NUR ---
LYNDSAY received a call pt. daughter, Syl, regarding pt. Syl shared, "This is him coping." He has been "normal his whole life." He has a "strong personality." She went on to explain pt. was "weened" off of the medications he was on and only left on "Ativan". Over "Labor Day" he had a "Psychotic Break". "He had a fantastic period of time in November/December." "He was the best thing ever." She also shared pt. "probably won't join groups." Pt. "chooses" to live at the [facility] because his is there. Pt. "fractured two ribs in August". Pt. daughter reports the [facility] made medication changes and had not notified them, and she feels that is why he is acting the way he is.
[2019-05-29] MEDS: CETIRIZINE HCL 10 MG TABLET PO SCH (09:24)
[2019-05-29] MEDS: CHOLECALCIFEROL (VITAMIN D3) 1,000 UNIT TABLET PO SCH (09:24)
[2019-05-29] MEDS: CYANOCOBALAMIN (VITAMIN B-12) 1,000 MCG TABLET. PO SCH (09:24)
[2019-05-29] MEDS: CLOPIDOGREL BISULFATE 75 MG TABLET PO SCH (09:24)
[2019-05-29] MEDS: traMADol 50 MG TABLET PO SCH ×2 (09:26→21:12)
[2019-05-29] MEDS: amLODIPine BESYLATE 5 MG TABLET PO SCH (09:26)
[2019-05-29 09:29] LABS: ALBUMIN 3.4 g/dL (3.4-5.0); ALBUMIN/GLOBULIN RATIO 0.9 (1.0-1.7); CREATININE 1.1 mg/dL (0.7-1.3); GFR 63.5; POTASSIUM 4.4 mmol/L (3.5-5.1); TOTAL BILIRUBIN 0.4 mg/dL (0.2-1.0); TOTAL PROTEIN 7.2 g/dL (6.4-8.2)
--- NOTE | 2019-05-29 13:37 | NUR ---
Pt is cooperative with medication and assessment. He is withdrawn to his room. During lunch he became demanding and cussed at staff he had to be removed from the dining room and taken to the [facility] for deescalation. No hallucinations or delusions noted.
[2019-05-29 16:21] VITALS: BP 123/68
[2019-05-29] MEDS: TAMSULOSIN 0.4 MG CAP.ER.24H. PO SCH (21:11)
[2019-05-29] MEDS: traZODone 50 MG TABLET. PO SCH (21:12)
[2019-05-30] MEDS: IPRATRPIUM/ALBUTEROL 0.5/2.5MG 3 ML NEBU. NEB SCH ×6 (01:04→20:57)
--- NOTE | 2019-05-30 04:28 | NUR ---
Nursing Note The patient was located in his room for his medication and assessment. the patient was compliant with his medication and took them whole. the patient was appropriate during interactions with this nurse and peers. the patient is currently sleeping in his room.
[2019-05-30 06:06] VITALS: BP 141/83
[2019-05-30] MEDS: PSYLLIUM SEED (WITH SUGAR) PACKET. PO SCH ×2 (08:42→21:30)
[2019-05-30] MEDS: ASPIRIN 325 MG TABLET PO SCH (08:42)
[2019-05-30] MEDS: SPIRONOLACTONE 25 MG TABLET PO SCH (08:44)
[2019-05-30] MEDS: CARVEDILOL 6.25 MG TABLET PO SCH ×2 (08:44→16:54)
[2019-05-30] MEDS: CLOPIDOGREL BISULFATE 75 MG TABLET PO SCH (08:44)
[2019-05-30] MEDS: LOSARTAN 50 MG TABLET. PO SCH (08:44)
[2019-05-30] MEDS: amLODIPine BESYLATE 5 MG TABLET PO SCH (08:45)
[2019-05-30] MEDS: busPIRone 5 MG TABLET. PO SCH ×3 (08:45→21:29)
[2019-05-30] MEDS: MIRABEGRON 25 MG TAB.ER.24H PO SCH (08:45)
[2019-05-30] MEDS: CETIRIZINE HCL 10 MG TABLET PO SCH (08:45)
[2019-05-30] MEDS: FUROSEMIDE 40 MG TABLET PO SCH (08:46)
[2019-05-30] MEDS: POTASSIUM CHLORIDE 20 MEQ TABLET.ER. PO SCH (08:46)
[2019-05-30] MEDS: PANTOPRAZOLE 40 MG TABLET. PO SCH (08:46)
[2019-05-30] MEDS: CYANOCOBALAMIN (VITAMIN B-12) 1,000 MCG TABLET. PO SCH (08:46)
[2019-05-30] MEDS: traMADol 50 MG TABLET PO SCH ×2 (08:46→21:32)
[2019-05-30] MEDS: CHOLECALCIFEROL (VITAMIN D3) 1,000 UNIT TABLET PO SCH (08:47)
[2019-05-30] MEDS: MAG HYDROX/AL HYDROX/SIMETH 30 ML ORAL.SUSP PO SCH ×4 (08:47→21:30)
[2019-05-30] MEDS: DOCUSATE SODIUM 100 MG CAPSULE PO SCH ×2 (08:47→21:29)
[2019-05-30] MEDS: SUCRALFATE 1 GM TABLET. PO SCH ×4 (08:47→21:29)
--- NOTE | 2019-05-30 11:29 | NUR ---
Nursing note: Pt was in the dining room for meds and assessment. He was compliant with taking his meds whole with encouragement. He was preoccupied with his stomach pain, stating "This is the worst it's ever been." We informed him the meds we were giving him would help with his stomach pain. He was appreciative of the care that was being given to him. He is currently in the day room and has had no agitation or name calling today. Will continue to monitor.
--- NOTE | 2019-05-30 15:43 | PN ---
DATE: 05/29/2019 SUBJECTIVE: The patient was seen today, met with the staff, chart reviewed. Staff reports the patient continues to have problems, increased anxiety, verbally abusive, attention seeking constantly complaining. OBSERVATION: VITAL SIGNS: Temperature 98, blood pressure 140/72, pulse 76, respirations 18, O2 sat 96%. GENERAL: Slept about 6 hours last night. The patient's appetite is fair. MEDICATIONS: The patient's current medications include trazodone 50 mg at night, BuSpar 5 mg three times a day, and Ativan 0.5 mg every 6 hours as needed. The patient is not having any side effects. LABORATORY DATA: The patient's lab reviewed. ASSESSMENT: 1. 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 2. Anxiety disorder, unspecified. 3. Bipolar disorder, mixed with psychotic features. PLAN: To continue with the treatment. LANIE MILLER MD DR: HAL/andrew JOB#: [id number] / [id number]
[2019-05-30 17:18] VITALS: BP 109/67
[2019-05-30] MEDS: TAMSULOSIN 0.4 MG CAP.ER.24H. PO SCH (21:00)
[2019-05-30] MEDS: traZODone 50 MG TABLET. PO SCH (21:29)
--- NOTE | 2019-05-31 03:59 | PN ---
DATE: 05/30/2019 SUBJECTIVE: The patient was seen today, met with the staff, chart reviewed. The patient continues having behavior problems fluctuating. He isolates himself and angry with the staff. Also, verbally abusive at times. The patient also has multiple physical complaints, complains of feeling tired and weak, not wanting to participate in any activities. OBSERVATION: VITAL SIGNS: Temperature 97.7, blood pressure 141/83, pulse 78, respirations 20, O2 sat 97%. Slept about 6 hours last night. The patient is not having any side effects. LABORATORY DATA: The patient's lab reviewed. ASSESSMENT: 1. 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 2. Anxiety disorder, unspecified. 3. Bipolar disorder, mixed with psychotic features. PLAN: To continue with the treatment. LANIE MILLER MD DR: HAL/andrew JOB#: [id number] / [id number]
[2019-05-31] MEDS: IPRATRPIUM/ALBUTEROL 0.5/2.5MG 3 ML NEBU. NEB SCH ×5 (05:31→22:00)
[2019-05-31] MEDS: CARVEDILOL 6.25 MG TABLET PO SCH ×2 (08:32→16:33)
[2019-05-31] MEDS: SUCRALFATE 1 GM TABLET. PO SCH ×4 (08:32→20:44)
[2019-05-31] MEDS: PANTOPRAZOLE 40 MG TABLET. PO SCH (08:32)
[2019-05-31] MEDS: busPIRone 5 MG TABLET. PO SCH ×3 (08:33→20:43)
[2019-05-31] MEDS: SPIRONOLACTONE 25 MG TABLET PO SCH (08:33)
[2019-05-31] MEDS: ASPIRIN 325 MG TABLET PO SCH (08:33)
[2019-05-31] MEDS: DOCUSATE SODIUM 100 MG CAPSULE PO SCH ×2 (08:33→20:43)
[2019-05-31] MEDS: POTASSIUM CHLORIDE 20 MEQ TABLET.ER. PO SCH (08:33)
[2019-05-31] MEDS: FUROSEMIDE 40 MG TABLET PO SCH (08:34)
[2019-05-31] MEDS: MAG HYDROX/AL HYDROX/SIMETH 30 ML ORAL.SUSP PO SCH ×4 (08:34→20:44)
[2019-05-31] MEDS: traMADol 50 MG TABLET PO SCH ×2 (08:35→20:43)
[2019-05-31] MEDS: amLODIPine BESYLATE 5 MG TABLET PO SCH (08:35)
[2019-05-31] MEDS: MIRABEGRON 25 MG TAB.ER.24H PO SCH (08:35)
[2019-05-31] MEDS: CLOPIDOGREL BISULFATE 75 MG TABLET PO SCH (08:35)
[2019-05-31] MEDS: CETIRIZINE HCL 10 MG TABLET PO SCH (08:36)
[2019-05-31] MEDS: CYANOCOBALAMIN (VITAMIN B-12) 1,000 MCG TABLET. PO SCH (08:36)
[2019-05-31] MEDS: CHOLECALCIFEROL (VITAMIN D3) 1,000 UNIT TABLET PO SCH (08:36)
[2019-05-31] MEDS: PSYLLIUM SEED (WITH SUGAR) PACKET. PO SCH ×2 (09:00→20:44)
[2019-05-31] MEDS: LOSARTAN 50 MG TABLET. PO SCH (09:00)
--- NOTE | 2019-05-31 09:27 | NUR ---
Pt is cooperative with medication and assessment. During breakfast pt became demanding and cussed at staff calling them "asses" stating "you are a big ass help, you have a big ass." He had to be removed from the dining room and redirected to his room for deescalation. No hallucinations or delusions noted.
[2019-05-31 15:49] VITALS: BP 107/67
[2019-05-31] MEDS: TAMSULOSIN 0.4 MG CAP.ER.24H. PO SCH (20:43)
[2019-05-31] MEDS: traZODone 50 MG TABLET. PO SCH (20:43)
[2019-06-01] MEDS: IPRATRPIUM/ALBUTEROL 0.5/2.5MG 3 ML NEBU. NEB SCH ×4 (05:29→15:42)
[2019-06-01 06:20] VITALS: BP 112/68
[2019-06-01] MEDS: PANTOPRAZOLE 40 MG TABLET. PO SCH (08:29)
[2019-06-01] MEDS: SUCRALFATE 1 GM TABLET. PO SCH ×4 (08:29→20:48)
[2019-06-01] MEDS: CARVEDILOL 6.25 MG TABLET PO SCH ×2 (08:30→17:28)
[2019-06-01] MEDS: ASPIRIN 325 MG TABLET PO SCH (08:31)
[2019-06-01] MEDS: busPIRone 5 MG TABLET. PO SCH ×3 (08:31→20:47)
[2019-06-01] MEDS: DOCUSATE SODIUM 100 MG CAPSULE PO SCH ×2 (08:31→20:48)
[2019-06-01] MEDS: SPIRONOLACTONE 25 MG TABLET PO SCH (08:31)
[2019-06-01] MEDS: POTASSIUM CHLORIDE 20 MEQ TABLET.ER. PO SCH (08:33)
[2019-06-01] MEDS: FUROSEMIDE 40 MG TABLET PO SCH (08:34)
[2019-06-01] MEDS: MIRABEGRON 25 MG TAB.ER.24H PO SCH (08:34)
[2019-06-01] MEDS: MAG HYDROX/AL HYDROX/SIMETH 30 ML ORAL.SUSP PO SCH ×4 (08:34→20:48)
[2019-06-01] MEDS: CETIRIZINE HCL 10 MG TABLET PO SCH (08:35)
[2019-06-01] MEDS: amLODIPine BESYLATE 5 MG TABLET PO SCH (08:35)
[2019-06-01] MEDS: traMADol 50 MG TABLET PO SCH ×2 (08:35→20:47)
[2019-06-01] MEDS: CHOLECALCIFEROL (VITAMIN D3) 1,000 UNIT TABLET PO SCH (08:35)
[2019-06-01] MEDS: CYANOCOBALAMIN (VITAMIN B-12) 1,000 MCG TABLET. PO SCH (08:35)
[2019-06-01] MEDS: CLOPIDOGREL BISULFATE 75 MG TABLET PO SCH (08:35)
[2019-06-01] MEDS: PSYLLIUM SEED (WITH SUGAR) PACKET. PO SCH ×2 (09:00→20:48)
[2019-06-01] MEDS: LOSARTAN 50 MG TABLET. PO SCH (09:00)
[2019-06-01 15:46] VITALS: BP 112/74
--- NOTE | 2019-06-01 18:13 | NUR ---
Pt asked for a blanket STONE FINISHER informed pt he already had 5 blankets on his bed pt stated "youre a lot of fucking help and real life bitch." STONE FINISHER informed him his language was not appropriate. When STONE FINISHER placed blanket on his bed pt stated "youre a fat fucking bitch and thats what I thought." Pt was redirected to the [facility] for deescalation. Nurse informed pt his language is unacceptable to use and he may not name call staff or peers. He stated "fuck you in your ass." While in the [facility] pt will demand things however, when staff redirects pt he will state "you fucking bitches" "the hell with you" "youre no good anyway." "you damn bitches."
[2019-06-01] MEDS: traZODone 50 MG TABLET. PO SCH (20:47)
[2019-06-01] MEDS: TAMSULOSIN 0.4 MG CAP.ER.24H. PO SCH (20:48)
--- NOTE | 2019-06-01 22:35 | PDOC ---
Exam Note: José Miguel Note: Please also refer to the separate dictated note~for this date of service dictated separately.~Patient seen individually. Discussed the patient with Nursing staff reviewed the chart.~Reviewed interim history and current functioning. Reviewed vital signs,~Labs/ Radiology~and current medications noted below. Continue current treatment with the changes noted in the dictated addendum note Assessment: Vital Signs/I&O: Vital Signs Date Time Temp Pulse Resp B/P (MAP) Pulse Ox O2 Delivery O2 Flow Rate FiO2 06/01/19 17:28 62 112/74 06/01/19 15:46 98.0 18 94 06/01/19 15:44 Room Air I & O 05/31/19 05/31/19 06/01/19 15:00 23:00 07:00 Intake Total 960 ml 240 ml Balance 960 ml 240 ml Current Medications: I have reviewed the current psychotropics carefully including drug interactions. Risk benefit ratio favors no change other than as noted in my dictated progress note. Diagnosis: Problems: (1) Anxiety disorder (2) Dementia in Alzheimer's disease with delusions (3) Dementia in Alzheimer's disease with depression (4) Dementia, vascular, with delusions (5) Dementia, vascular, with depression (6) Bipolar affective, mixed, sev w/ psych WANDA NDIAYE MD Jun 01, 2019 22:35
--- NOTE | 2019-06-01 23:31 | PN ---
DATE: 06/01/2019 SUBJECTIVE: The patient was seen today, met with the staff, chart reviewed. Staff reports some improvement, less irritable and rutledge. The patient continues to stay in bed, complaining of feeling tired, not wanting to get up. OBSERVATION: VITAL SIGNS: Temperature 97.1, blood pressure 104/68, pulse 71, respirations 16, O2 sat 97%. GENERAL: Slept about 9 hours last night. The patient's appetite is fair. The patient is not presenting with any major medical issues at this time. CURRENT MEDICATIONS: Include BuSpar 5 mg t.i.d., trazodone 50 mg at night, lorazepam 0.5 mg q. 6 hours p.r.n. LABORATORY DATA: The patient's labs reviewed. ASSESSMENT: 1. 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 2. Anxiety disorder, unspecified. 3. Bipolar disorder, mixed with psychotic features. PLAN: To continue with the treatment. LANIE MILLER MD DR: HAL/andrew JOB#: [id number] / [id number]
[2019-06-02] MEDS: IPRATRPIUM/ALBUTEROL 0.5/2.5MG 3 ML NEBU. NEB SCH ×4 (01:17→16:38)
--- NOTE | 2019-06-02 01:33 | NUR ---
At shift change pt was in [place] agitated and cursing at staff. Eventually he calmed down and went to day room. He was continually asking to go to bed saying he has never been this tired. Meds were taken whole without difficulty. Pt claims to have no recall of cussing and insulting staff and says he wants to apologize to them.
--- NOTE | 2019-06-02 04:14 | PDOC ---
Exam Note: José Miguel Note: Note: Dr. Ndiaye was to see the patient on 06/01/[address] Mills continued coverage on the patient for 06/01/2019 and the note written was an error and should be disregarded. Please also refer to the separate dictated note~for this date of service dictated separately.~Patient seen individually. Discussed the patient with Nursing staff reviewed the chart.~Reviewed interim history and current functioning. Reviewed vital signs,~Labs/ Radiology~and current medications noted below. Continue current treatment with the changes noted in the dictated addendum note Assessment: Vital Signs/I&O: Vital Signs Date Time Temp Pulse Resp B/P (MAP) Pulse Ox O2 Delivery O2 Flow Rate FiO2 06/01/19 22:00 Room Air 06/01/19 20:40 96 06/01/19 17:28 62 112/74 06/01/19 15:46 98.0 18 I & O 06/01/19 06/01/19 06/02/19 15:00 23:00 07:00 Intake Total 840 ml 480 ml 240 ml Balance 840 ml 480 ml 240 ml Current Medications: I have reviewed the current psychotropics carefully including drug interactions. Risk benefit ratio favors no change other than as noted in my dictated progress note. Diagnosis: Problems: (1) Anxiety disorder (2) Dementia in Alzheimer's disease with delusions (3) Dementia in Alzheimer's disease with depression (4) Dementia, vascular, with delusions (5) Dementia, vascular, with depression (6) Bipolar affective, mixed, sev w/ psych WANDA NDIAYE MD Jun 02, 2019 04:14
[2019-06-02 06:22] VITALS: BP 106/63
[2019-06-02] MEDS: PANTOPRAZOLE 40 MG TABLET. PO SCH (08:30)
[2019-06-02] MEDS: SUCRALFATE 1 GM TABLET. PO SCH ×4 (08:30→21:12)
[2019-06-02] MEDS: DOCUSATE SODIUM 100 MG CAPSULE PO SCH ×2 (08:31→21:12)
[2019-06-02] MEDS: ASPIRIN 325 MG TABLET PO SCH (08:31)
[2019-06-02] MEDS: CARVEDILOL 6.25 MG TABLET PO SCH ×2 (08:31→16:29)
[2019-06-02] MEDS: SPIRONOLACTONE 25 MG TABLET PO SCH (08:31)
[2019-06-02] MEDS: busPIRone 5 MG TABLET. PO SCH ×3 (08:31→21:11)
[2019-06-02] MEDS: POTASSIUM CHLORIDE 20 MEQ TABLET.ER. PO SCH (08:32)
[2019-06-02] MEDS: LOSARTAN 50 MG TABLET. PO SCH (08:32)
[2019-06-02] MEDS: MAG HYDROX/AL HYDROX/SIMETH 30 ML ORAL.SUSP PO SCH ×4 (08:32→21:11)
[2019-06-02] MEDS: PSYLLIUM SEED (WITH SUGAR) PACKET. PO SCH ×2 (08:32→21:12)
[2019-06-02] MEDS: FUROSEMIDE 40 MG TABLET PO SCH (08:32)
[2019-06-02] MEDS: amLODIPine BESYLATE 5 MG TABLET PO SCH (08:33)
[2019-06-02] MEDS: CYANOCOBALAMIN (VITAMIN B-12) 1,000 MCG TABLET. PO SCH (08:33)
[2019-06-02] MEDS: traMADol 50 MG TABLET PO SCH ×2 (08:33→21:12)
[2019-06-02] MEDS: MIRABEGRON 25 MG TAB.ER.24H PO SCH (08:33)
[2019-06-02] MEDS: CLOPIDOGREL BISULFATE 75 MG TABLET PO SCH (08:33)
[2019-06-02] MEDS: CETIRIZINE HCL 10 MG TABLET PO SCH (08:34)
[2019-06-02] MEDS: CHOLECALCIFEROL (VITAMIN D3) 1,000 UNIT TABLET PO SCH (08:34)
--- NOTE | 2019-06-02 10:40 | NUR ---
Pt is compliant with his medication and assessment. Pt was offered the restroom prior to group. During group he stated "what I can't lay down?" Staff encouraged him to attend group as he has not attended any groups this weekend, pt stated "I need to shit." Staff took pt to the restroom. While in the restroom pt stated "you need to be in here not me youre crazy." "I ain't going fucking no where." Staff reminded pt that his language is inappropriate. Pt stated "I'll say whatever I want to fucking say." Pt taken to [facility] for deescalation after he was finished in the restroom. While in the [facility] pt is cursing at staff. "fuck you in the mouth." "fuck everyone of you." "youre not good sons of bitches." "what is it you want me to do kiss your ass." Staff continues to remind pt his language is not appropriate.
--- NOTE | 2019-06-02 11:19 | NUR ---
SW received a call from pt. daughter, Syl, requesting an update. SW returned the call and reported on pt. behaviors.
[2019-06-02 16:24] VITALS: BP 100/67
[2019-06-02] MEDS: traZODone 50 MG TABLET. PO SCH (21:11)
[2019-06-02] MEDS: TAMSULOSIN 0.4 MG CAP.ER.24H. PO SCH (21:12)
[2019-06-02] MEDS: DIVALPROEX ER 500 MG TAB.ER.24H PO SCH (21:19)
--- NOTE | 2019-06-02 21:56 | PDOC ---
Exam Note: José Miguel Note: Please also refer to the separate dictated note~for this date of service dictated separately.~Patient seen individually. Discussed the patient with Nursing staff reviewed the chart.~Reviewed interim history and current functioning. Reviewed vital signs,~Labs/ Radiology~and current medications noted below. Continue current treatment with the changes noted in the dictated addendum note Assessment: Vital Signs/I&O: Vital Signs Date Time Temp Pulse Resp B/P (MAP) Pulse Ox O2 Delivery O2 Flow Rate FiO2 06/02/19 21:39 95 Room Air 06/02/19 21:12 18 06/02/19 16:29 76 100/67 06/02/19 16:24 98.9 I & O 06/01/19 06/01/19 06/02/19 14:59 22:59 06:59 Intake Total 840 ml 480 ml 240 ml Output Total 1 ml Balance 840 ml 480 ml 239 ml Current Medications: Meds: Current Medications Medications (Trade) Dose Ordered Sig/Rik Route PRN Reason Start Time Stop Time Status Last Admin Dose Admin Divalproex Sodium (Depakote Er) 500 mg QHS PO 06/02/19 21:00 06/02/19 21:19 I have reviewed the current psychotropics carefully including drug interactions. Risk benefit ratio favors no change other than as noted in my dictated progress note. Diagnosis: Problems: (1) Anxiety disorder (2) Dementia in Alzheimer's disease with delusions (3) Dementia in Alzheimer's disease with depression (4) Dementia, vascular, with delusions (5) Dementia, vascular, with depression (6) Bipolar affective, mixed, sev w/ psych WANDA NDIAYE MD Jun 02, 2019 21:56
[2019-06-03] MEDS: IPRATRPIUM/ALBUTEROL 0.5/2.5MG 3 ML NEBU. NEB SCH ×5 (00:19→19:52)
--- NOTE | 2019-06-03 00:41 | NUR ---
Nursing Note The patient was located in his room for his medication and assessment. The patient was compliant with his medication and assessment. The is currently sleeping in his room.
[2019-06-03] MEDS: ONDANSETRON ODT 4 MG TAB.RAPDIS PO PRN (04:18)
[2019-06-03 06:34] VITALS: BP 96/62
[2019-06-03 08:33] VITALS: BP 102/54
[2019-06-03] MEDS: CHOLECALCIFEROL (VITAMIN D3) 1,000 UNIT TABLET PO SCH (08:37)
[2019-06-03] MEDS: ASPIRIN 325 MG TABLET PO SCH (08:37)
[2019-06-03] MEDS: MIRABEGRON 25 MG TAB.ER.24H PO SCH (08:37)
[2019-06-03] MEDS: CLOPIDOGREL BISULFATE 75 MG TABLET PO SCH (08:37)
[2019-06-03] MEDS: busPIRone 5 MG TABLET. PO SCH ×3 (08:37→20:13)
[2019-06-03] MEDS: PSYLLIUM SEED (WITH SUGAR) PACKET. PO SCH ×2 (08:37→20:12)
[2019-06-03] MEDS: POTASSIUM CHLORIDE 20 MEQ TABLET.ER. PO SCH (08:38)
[2019-06-03] MEDS: MAG HYDROX/AL HYDROX/SIMETH 30 ML ORAL.SUSP PO SCH ×4 (08:38→20:13)
[2019-06-03] MEDS: PANTOPRAZOLE 40 MG TABLET. PO SCH (08:38)
[2019-06-03] MEDS: FUROSEMIDE 40 MG TABLET PO SCH (08:38)
[2019-06-03] MEDS: SPIRONOLACTONE 25 MG TABLET PO SCH (08:39)
[2019-06-03] MEDS: CETIRIZINE HCL 10 MG TABLET PO SCH (08:39)
[2019-06-03] MEDS: DOCUSATE SODIUM 100 MG CAPSULE PO SCH ×2 (08:39→20:13)
[2019-06-03] MEDS: CARVEDILOL 6.25 MG TABLET PO SCH ×2 (08:39→17:21)
[2019-06-03] MEDS: CYANOCOBALAMIN (VITAMIN B-12) 1,000 MCG TABLET. PO SCH (08:39)
[2019-06-03] MEDS: SUCRALFATE 1 GM TABLET. PO SCH ×4 (08:40→20:13)
[2019-06-03] MEDS: traMADol 50 MG TABLET PO SCH ×2 (08:41→20:13)
[2019-06-03] MEDS: amLODIPine BESYLATE 5 MG TABLET PO SCH (09:00)
[2019-06-03] MEDS: LOSARTAN 50 MG TABLET. PO SCH (09:00)
--- NOTE | 2019-06-03 13:05 | NUR ---
Nursing note: Pt was in the dining room for his meds and assessment. He was calm and compliant with taking his meds. He continues to yell out about his stomach pain. He is currently in the day room. Will continue to monitor.
[2019-06-03 16:00] VITALS: BP 105/70
[2019-06-03 17:55] LABS: BACTERIA,URINE FEW /HPF (0-FEW); BILIRUBIN,URINE NEG (NEG); CLARITY,URINE TURBID; COLOR,URINE STRAW; GLUCOSE,URINE NEG (NEG); NITRITE,URINE NEG (NEG); SQUAMOUS EPITHELIAL CELL,UR OCC /LPF; UROBILINOGEN,URINE 0.2 mg/dL (0.2 mg/dL); WBC,URINE TNTC /HPF (0-4)
--- NOTE | 2019-06-03 20:03 | PN ---
DATE: PSYCHIATRIC PROGRESS NOTE This late entry 06/02/2019 covers the elements not covered in my initial note. SUBJECTIVE: I met with the patient in the evening of 06/02/2019 at length in his room. Discussed with nursing staff, reviewed the chart, reviewed information from Dr. Arciniega coverage of the patient during my absence over the past 1 week. The patient slept 6 hours previous night. According to RUTHY oRmeo, he has been extremely labile, disruptive, verbally abusive, aggressive, calling the nursing staff, the B word and has been "awful. He has been anxious, restless, totally disrespectful and verbally abusive. He is quite irritable as I met with him. REVIEW OF SYSTEMS: Ambulation impaired with assistance. No CV, , pulmonary, eyes, ENT system symptoms on review. MENTAL STATUS EXAM: Oriented to himself and situation. Speech is coherent, rapid at times, abrasive. Abstraction fair, computation impaired, language function intact, attention span short. Mood and affect remains labile. LABORATORY DATA: Reviewed. IMPRESSION: Bipolar disorder, mixed with psychotic features; anxiety disorder, unspecified; mild cognitive impairment. Rest unchanged. PLAN: Given his significant bipolar disorder symptoms, we will start Depakote ER 500 mg at bedtime. Check CBC, CMP, valproic acid level in 3 days. Start Zyprexa 2.5 mg q.2 hours p.r.n. psychosis, agitation, max 7.5 mg in 24 hours, maintained BuSpar 5 mg t.i.d., Ativan p.r.n., trazodone 50 mg at bedtime. Adjust further as clinically indicated. MAN Gabriela NDIAYE MD DR: JONATAN/andrew JOB#: [id number] / [id number]
[2019-06-03] MEDS: DIVALPROEX ER 500 MG TAB.ER.24H PO SCH (20:12)
[2019-06-03] MEDS: TAMSULOSIN 0.4 MG CAP.ER.24H. PO SCH (20:13)
[2019-06-03] MEDS: traZODone 50 MG TABLET. PO SCH (20:13)
--- NOTE | 2019-06-03 21:57 | PDOC ---
Exam Note: José Miguel Note: Please also refer to the separate dictated note~for this date of service dictated separately.~Patient seen individually. Discussed the patient with Nursing staff reviewed the chart.~Reviewed interim history and current functioning. Reviewed vital signs,~Labs/ Radiology~and current medications noted below. Continue current treatment with the changes noted in the dictated addendum note Assessment: Vital Signs/I&O: Vital Signs Date Time Temp Pulse Resp B/P (MAP) Pulse Ox O2 Delivery O2 Flow Rate FiO2 06/03/19 20:13 97 06/03/19 19:52 Room Air 06/03/19 17:21 100 105/70 06/03/19 16:00 97.6 20 I & O 06/02/19 06/02/19 06/03/19 15:00 23:00 07:00 Intake Total 720 ml 240 ml 120 ml Balance 720 ml 240 ml 120 ml Labs: Laboratory Tests Test 06/03/19 17:10 Urine Collection Type Unknown Urine Color Straw Urine Clarity Turbid Urine pH 5.0 Urine Specific Rochelle 1.015 Urine Protein 30 mg/dl (NEG-TRACE) Urine Glucose (UA) Neg mg/dL (NEG) Urine Ketones (Stick) Neg mg/dL (NEG) Urine Blood Mod (NEG) Urine Nitrite Neg (NEG) Urine Bilirubin Neg (NEG) Urine Urobilinogen Dipstick 0.2 mg/dL (0.2 mg/dL) Urine Leukocyte Esterase Large (NEG) Urine RBC 3-5 /HPF (0-2) Urine WBC Tntc /HPF (0-4) Urine Squamous Epithelial Cells Occ /LPF Urine Bacteria Few /HPF (0-FEW) Urine Mucus Slight /LPF Current Medications: I have reviewed the current psychotropics carefully including drug interactions. Risk benefit ratio favors no change other than as noted in my dictated progress note. Diagnosis: Problems: (1) Anxiety disorder (2) Dementia in Alzheimer's disease with delusions (3) Dementia in Alzheimer's disease with depression (4) Dementia, vascular, with delusions (5) Dementia, vascular, with depression (6) Bipolar affective, mixed, sev w/ psych WANDA NDIAYE MD Jun 03, 2019 21:57
--- NOTE | 2019-06-03 23:56 | NUR ---
Pt withdrawn to room, laying in bed at shift change. Pt calm but yelling out intermittently with c/o abdominal pain. Pt pleasant and social with this nurse during interaction. Pt cooperative with assessment and compliant with medications administered whole. Pt did become belligerent with staff when they did not assist him quickly enough. Pt currently resting in bed with eyes closed at this time.
[2019-06-04] MEDS: IPRATRPIUM/ALBUTEROL 0.5/2.5MG 3 ML NEBU. NEB SCH ×5 (05:23→22:00)
[2019-06-04 05:45] VITALS: BP 111/69
[2019-06-04] MEDS: MAG HYDROX/AL HYDROX/SIMETH 30 ML ORAL.SUSP PO SCH ×4 (08:03→21:00)
[2019-06-04] MEDS: PSYLLIUM SEED (WITH SUGAR) PACKET. PO SCH ×2 (08:03→20:56)
[2019-06-04] MEDS: MIRABEGRON 25 MG TAB.ER.24H PO SCH (08:04)
[2019-06-04] MEDS: SUCRALFATE 1 GM TABLET. PO SCH ×4 (08:04→20:55)
[2019-06-04] MEDS: busPIRone 5 MG TABLET. PO SCH ×3 (08:04→20:55)
[2019-06-04] MEDS: CYANOCOBALAMIN (VITAMIN B-12) 1,000 MCG TABLET. PO SCH (08:04)
[2019-06-04] MEDS: traMADol 50 MG TABLET PO SCH ×2 (08:04→20:54)
[2019-06-04] MEDS: CLOPIDOGREL BISULFATE 75 MG TABLET PO SCH (08:05)
[2019-06-04] MEDS: CHOLECALCIFEROL (VITAMIN D3) 1,000 UNIT TABLET PO SCH (08:05)
[2019-06-04] MEDS: CETIRIZINE HCL 10 MG TABLET PO SCH (08:05)
[2019-06-04] MEDS: CARVEDILOL 6.25 MG TABLET PO SCH ×2 (08:05→17:16)
[2019-06-04] MEDS: ASPIRIN 325 MG TABLET PO SCH (08:05)
[2019-06-04] MEDS: PANTOPRAZOLE 40 MG TABLET. PO SCH (08:05)
[2019-06-04] MEDS: POTASSIUM CHLORIDE 20 MEQ TABLET.ER. PO SCH (08:06)
[2019-06-04] MEDS: DOCUSATE SODIUM 100 MG CAPSULE PO SCH ×2 (08:07→20:56)
[2019-06-04] MEDS: amLODIPine BESYLATE 5 MG TABLET PO SCH (08:07)
[2019-06-04] MEDS: FUROSEMIDE 40 MG TABLET PO SCH (08:08)
[2019-06-04] MEDS: LOSARTAN 50 MG TABLET. PO SCH ×2 (08:08→15:45)
[2019-06-04] MEDS: SPIRONOLACTONE 25 MG TABLET PO SCH (08:08)
--- NOTE | 2019-06-04 13:17 | NUR ---
Nursing note: Pt in dining room for morning meds and assessment. He was compliant with taking his meds whole. He has continued to be preoccupied about his abdominal pain and toileting habits, yelling out to staff about them intermittently. He has been withdrawn to his room and sleeping all morning, except for getting up at mealtimes. He is currently in his room sleeping.
[2019-06-04 17:04] VITALS: BP 109/56
[2019-06-04] MEDS: TAMSULOSIN 0.4 MG CAP.ER.24H. PO SCH (20:55)
[2019-06-04] MEDS: DIVALPROEX ER 500 MG TAB.ER.24H PO SCH (20:56)
[2019-06-04] MEDS: traZODone 50 MG TABLET. PO SCH (21:01)
--- NOTE | 2019-06-04 21:51 | PDOC ---
Exam Note: José Miguel Note: Please also refer to the separate dictated note~for this date of service dictated separately.~Patient seen individually. Discussed the patient with Nursing staff reviewed the chart.~Reviewed interim history and current functioning. Reviewed vital signs,~Labs/ Radiology~and current medications noted below. Continue current treatment with the changes noted in the dictated addendum note Assessment: Vital Signs/I&O: Vital Signs Date Time Temp Pulse Resp B/P (MAP) Pulse Ox O2 Delivery O2 Flow Rate FiO2 06/04/19 20:59 96 Room Air 06/04/19 17:16 67 109/56 06/04/19 17:04 97.5 18 I & O 06/03/19 06/03/19 06/04/19 15:00 23:00 07:00 Intake Total 602 ml 360 ml Balance 602 ml 360 ml Current Medications: I have reviewed the current psychotropics carefully including drug interactions. Risk benefit ratio favors no change other than as noted in my dictated progress note. Diagnosis: Problems: (1) Anxiety disorder (2) Dementia in Alzheimer's disease with delusions (3) Dementia in Alzheimer's disease with depression (4) Dementia, vascular, with delusions (5) Dementia, vascular, with depression (6) Bipolar affective, mixed, sev w/ psych WANDA NDIAYE MD Jun 04, 2019 21:51
--- NOTE | 2019-06-05 00:05 | PN ---
DATE: 06/03/2019 PSYCHIATRIC PROGRESS NOTE This late entry, 06/03, covers the elements not covered in my initial note. SUBJECTIVE: I met with the patient on the evening of 06/03 in his room at length. Per RUTHY Helton, the patient slept 4-1/4 hours previous night. Per RUTHY German, he was upset in the morning, urinated in bed, had to be in the quiet hallway, complains of some GI complaints, but less preoccupied since last week. He has been cursing and stuttering at times. UA was checked to rule out UTI. REVIEW OF SYSTEMS: Positive for some tiredness. GI symptoms as above. No CV, pulmonary, eye systems symptoms on review. MENTAL STATUS EXAM: Oriented to himself and situation. Speech can be coherent, rapid at times. Abstraction fair, computation impaired, language function intact, attention span short. Mood and affect remain somewhat labile, at times withdrawn. LABORATORY DATA: Reviewed. IMPRESSION: Bipolar disorder, mixed with psychotic features; anxiety disorder, unspecified; impulse control disorder, unspecified. PLAN: Continue current psychotropics. Depakote was initiated. Follow labs level, adjust as indicated. MAN Gabriela NDIAYE MD DR: JONATAN/andrew JOB#: [id number] / [id number]
--- NOTE | 2019-06-05 03:04 | NUR ---
Pt in pt room for evening med pass and assessment. Pt calm, compliant, forgetful. No behaviors to report. Pt took meds whole one at a time.
[2019-06-05] MEDS: IPRATRPIUM/ALBUTEROL 0.5/2.5MG 3 ML NEBU. NEB SCH ×4 (04:53→19:46)
[2019-06-05 06:29] VITALS: BP 98/59
[2019-06-05 06:50] LABS: BASO # 0.1 x10^3/uL (0.0-0.2); BASO % 1 % (0-3); EOS # 0.2 x10^3/uL (0.0-0.7); EOS % 2 % (0-3); HEMATOCRIT 31.6 % (39.0-53.0); HEMOGLOBIN 10.7 g/dL (13.0-17.5); LYMPH # 1.3 x10^3/uL (1.0-4.8); LYMPH % 15 % (24-48); MEAN CORPUSCULAR HEMOGLOBIN 30 pg (25-35); MEAN CORPUSCULAR HGB CONC 34 g/dL (31-37); MEAN CORPUSCULAR VOLUME 90 fL (79-100); MONO # 0.9 x10^3/uL (0.0-1.1); MONO % 11 % (0-9); NEUT # 5.8 x10^3uL (1.8-7.7); NEUT % 71 % (31-73); PLATELET COUNT 238 x10^3/uL (140-400); RED BLOOD COUNT 3.51 x10^6/uL (4.30-5.70); RED CELL DISTRIBUTION WIDTH 18.6 % (11.5-14.5); WHITE BLOOD COUNT 8.2 x10^3/uL (4.0-11.0)
[2019-06-05 07:03] LABS: ALBUMIN/GLOBULIN RATIO 0.9 (1.0-1.7); ALK PHOS 91 U/L (46-116); ALT (SGPT) 8 U/L (16-63); ANION GAP 7 (6-14); AST (SGOT) 8 U/L (15-37); BLOOD UREA NITROGEN 31 mg/dL (8-26); BUN/CREATININE RATIO 24 (6-20); CALCIUM 8.9 mg/dL (8.5-10.1); CARBON DIOXIDE 27 mmol/L (21-32); CHLORIDE 97 mmol/L (98-107); CREATININE 1.3 mg/dL (0.7-1.3); GFR 52.3; GLUCOSE 91 mg/dL (70-99); POTASSIUM 4.9 mmol/L (3.5-5.1); SODIUM 131 mmol/L (136-145); TOTAL BILIRUBIN 0.4 mg/dL (0.2-1.0); TOTAL PROTEIN 6.4 g/dL (6.4-8.2)
[2019-06-05 07:05] LABS: VAL ACID 53 mcg/mL (50-100)
[2019-06-05] MEDS: MAG HYDROX/AL HYDROX/SIMETH 30 ML ORAL.SUSP PO SCH ×4 (09:53→21:17)
[2019-06-05] MEDS: SUCRALFATE 1 GM TABLET. PO SCH ×4 (09:53→21:18)
[2019-06-05] MEDS: traMADol 50 MG TABLET PO SCH ×2 (09:55→21:17)
[2019-06-05] MEDS: SPIRONOLACTONE 25 MG TABLET PO SCH (09:55)
[2019-06-05] MEDS: ASPIRIN 325 MG TABLET PO SCH (09:55)
[2019-06-05] MEDS: CLOPIDOGREL BISULFATE 75 MG TABLET PO SCH (09:55)
[2019-06-05] MEDS: LOSARTAN 50 MG TABLET. PO SCH (09:56)
[2019-06-05] MEDS: PSYLLIUM SEED (WITH SUGAR) PACKET. PO SCH ×2 (09:56→21:16)
[2019-06-05] MEDS: PANTOPRAZOLE 40 MG TABLET. PO SCH (09:56)
[2019-06-05] MEDS: DOCUSATE SODIUM 100 MG CAPSULE PO SCH ×2 (09:56→21:18)
[2019-06-05] MEDS: CARVEDILOL 6.25 MG TABLET PO SCH ×2 (09:57→17:11)
[2019-06-05] MEDS: POTASSIUM CHLORIDE 20 MEQ TABLET.ER. PO SCH (09:57)
[2019-06-05] MEDS: busPIRone 5 MG TABLET. PO SCH ×3 (09:57→21:17)
[2019-06-05] MEDS: CETIRIZINE HCL 10 MG TABLET PO SCH (09:58)
[2019-06-05] MEDS: CHOLECALCIFEROL (VITAMIN D3) 1,000 UNIT TABLET PO SCH (09:58)
[2019-06-05] MEDS: FUROSEMIDE 40 MG TABLET PO SCH (09:58)
[2019-06-05] MEDS: amLODIPine BESYLATE 5 MG TABLET PO SCH (09:58)
[2019-06-05] MEDS: CYANOCOBALAMIN (VITAMIN B-12) 1,000 MCG TABLET. PO SCH (09:58)
[2019-06-05] MEDS: MIRABEGRON 25 MG TAB.ER.24H PO SCH (09:59)
--- NOTE | 2019-06-05 10:04 | NUR ---
WEEKLY ACTIVITY THERAPY NOTE Date of Admission: 05/23/2019 Date of AT Assessment: 05/27/2019 Goal aimed: to increase engagement Initial Goal: Pt. will participate in at least three Activity Therapy individual sessions or groups before discharge. Weekly progress towards goal: on track, 2/3 both groups this week Group participation level: minimal and moderate Weekly highlights: minimal assistance with Apples to Apples, minimal complaints of pain during this group Behaviors observed: requesting to lay down often, complaining of pain, moans and groans Plan: no change to goal Beneficial adaptations: hearing amplifier possibly
--- NOTE | 2019-06-05 12:14 | NUR ---
WEEKLY NOTE Pt. daughters, Javon, were contacted for treatment team. Pt. has been eating 70% of meals and sleeps an average of 6 hours. Pt. is compliant with medications and assessments. Pt. has yelled out a few times regarding his stomach pain and obsesses about needing to use the restroom. Pt. is more verbally abusive when he doesn't get his way or if he feels staff is not fast enough. Pt. medication continue to be adjusted and monitor. Pt. will discharge the early part of the week after next.
--- NOTE | 2019-06-05 12:20 | NUR ---
SW contacted JULIO Abdullahi at [facility], to update her on pt. progress and to discuss tentative discharge scheduled for the early part of the week after next.
[2019-06-05 16:27] VITALS: BP 99/51
[2019-06-05] MEDS: QUEtiapine 25 MG TABLET. PO SCH (17:11)
--- NOTE | 2019-06-05 20:38 | NUR ---
Patient was withdrawn to his bed most of the day. He was mildly anxious and continuously talking during interactions but he was complaint with all medications and assessments. He was able to transfer and toilet himself without assistance; he was incontinent of bladder once and was very agitated at that time. He was cooperative with cares. He frequently complained of abdominal pain but denied interventions. Will continue to monitor and report to oncoming shift.
--- NOTE | 2019-06-05 21:16 | PDOC ---
Exam Note: José Miguel Note: Please also refer to the separate dictated note~for this date of service dictated separately.~Patient seen individually. Discussed the patient with Nursing staff reviewed the chart.~Reviewed interim history and current functioning. Reviewed vital signs,~Labs/ Radiology~and current medications noted below. Continue current treatment with the changes noted in the dictated addendum note Assessment: Vital Signs/I&O: Vital Signs Date Time Temp Pulse Resp B/P (MAP) Pulse Ox O2 Delivery O2 Flow Rate FiO2 06/05/19 19:48 96 Room Air 06/05/19 17:11 65 99/51 06/05/19 16:27 98.0 16 I & O 06/04/19 06/04/19 06/05/19 15:00 23:00 07:00 Intake Total 600 ml 240 ml 120 ml Balance 600 ml 240 ml 120 ml Labs: Laboratory Tests Test 06/05/19 06:35 White Blood Count 8.2 x10^3/uL (4.0-11.0) Red Blood Count 3.51 x10^6/uL (4.30-5.70) L Hemoglobin 10.7 g/dL (13.0-17.5) L Hematocrit 31.6 % (39.0-53.0) L Mean Corpuscular Volume 90 fL (79-100) Mean Corpuscular Hemoglobin 30 pg (25-35) Mean Corpuscular Hemoglobin Concent 34 g/dL (31-37) Red Cell Distribution Width 18.6 % (11.5-14.5) H Platelet Count 238 x10^3/uL (140-400) Neutrophils (%) (Auto) 71 % (31-73) Lymphocytes (%) (Auto) 15 % (24-48) L Monocytes (%) (Auto) 11 % (0-9) H Eosinophils (%) (Auto) 2 % (0-3) Basophils (%) (Auto) 1 % (0-3) Neutrophils # (Auto) 5.8 x10^3uL (1.8-7.7) Lymphocytes # (Auto) 1.3 x10^3/uL (1.0-4.8) Monocytes # (Auto) 0.9 x10^3/uL (0.0-1.1) Eosinophils # (Auto) 0.2 x10^3/uL (0.0-0.7) Basophils # (Auto) 0.1 x10^3/uL (0.0-0.2) Sodium Level 131 mmol/L (136-145) L Potassium Level 4.9 mmol/L (3.5-5.1) Chloride Level 97 mmol/L (98-107) L Carbon Dioxide Level 27 mmol/L (21-32) Anion Gap 7 (6-14) Blood Urea Nitrogen 31 mg/dL (8-26) H Creatinine 1.3 mg/dL (0.7-1.3) Estimated GFR (Cockcroft-Gault) 52.3 BUN/Creatinine Ratio 24 (6-20) H Glucose Level 91 mg/dL (70-99) Calcium Level 8.9 mg/dL (8.5-10.1) Total Bilirubin 0.4 mg/dL (0.2-1.0) Aspartate Amino Transferase (AST) 8 U/L (15-37) L Alanine Aminotransferase (ALT) 8 U/L (16-63) L Alkaline Phosphatase 91 U/L (46-116) Ammonia < 10 mcmol/L (11-34) L Total Protein 6.4 g/dL (6.4-8.2) Albumin 3.0 g/dL (3.4-5.0) L Albumin/Globulin Ratio 0.9 (1.0-1.7) L Valproic Acid Level 53 mcg/mL (50-100) Valproic Acid Last Dose Date 06/04/19 Valproic Acid Last Dose Time 2100 Current Medications: Meds: Current Medications Medications (Trade) Dose Ordered Sig/Rik Route PRN Reason Start Time Stop Time Status Last Admin Dose Admin Quetiapine Fumarate (SEROquel) 25 mg BID@0900,1700 PO 06/05/19 17:00 06/05/19 17:11 I have reviewed the current psychotropics carefully including drug interactions. Risk benefit ratio favors no change other than as noted in my dictated progress note. Diagnosis: Problems: (1) Anxiety disorder (2) Dementia in Alzheimer's disease with delusions (3) Dementia in Alzheimer's disease with depression (4) Dementia, vascular, with delusions (5) Dementia, vascular, with depression (6) Bipolar affective, mixed, sev w/ psych WANDA NDIAYE MD Jun 05, 2019 21:15
[2019-06-05] MEDS: DIVALPROEX ER 500 MG TAB.ER.24H PO SCH (21:17)
[2019-06-05] MEDS: traZODone 50 MG TABLET. PO SCH (21:18)
[2019-06-05] MEDS: TAMSULOSIN 0.4 MG CAP.ER.24H. PO SCH (21:18)
--- NOTE | 2019-06-06 01:11 | NUR ---
Pt has been in his room this shift. He was easily awaken and cooperative with meds taken whole. After using BR pt returned to bed and has been sleeping well.
[2019-06-06] MEDS: IPRATRPIUM/ALBUTEROL 0.5/2.5MG 3 ML NEBU. NEB SCH ×5 (04:56→22:00)
[2019-06-06 06:33] VITALS: BP 106/68
[2019-06-06] MEDS: MAG HYDROX/AL HYDROX/SIMETH 30 ML ORAL.SUSP PO SCH ×4 (08:56→21:00)
[2019-06-06] MEDS: ASPIRIN 325 MG TABLET PO SCH (08:56)
[2019-06-06] MEDS: PSYLLIUM SEED (WITH SUGAR) PACKET. PO SCH ×2 (08:56→20:46)
[2019-06-06] MEDS: POTASSIUM CHLORIDE 20 MEQ TABLET.ER. PO SCH (08:56)
[2019-06-06] MEDS: CLOPIDOGREL BISULFATE 75 MG TABLET PO SCH (08:56)
[2019-06-06] MEDS: QUEtiapine 25 MG TABLET. PO SCH ×2 (08:56→17:25)
[2019-06-06] MEDS: SUCRALFATE 1 GM TABLET. PO SCH ×4 (08:56→20:47)
[2019-06-06] MEDS: MIRABEGRON 25 MG TAB.ER.24H PO SCH (08:57)
[2019-06-06] MEDS: amLODIPine BESYLATE 5 MG TABLET PO SCH (08:57)
[2019-06-06] MEDS: traMADol 50 MG TABLET PO SCH ×2 (08:57→20:50)
[2019-06-06] MEDS: LOSARTAN 50 MG TABLET. PO SCH (08:58)
[2019-06-06] MEDS: DOCUSATE SODIUM 100 MG CAPSULE PO SCH ×2 (08:58→20:46)
[2019-06-06] MEDS: CARVEDILOL 6.25 MG TABLET PO SCH ×2 (08:58→17:26)
[2019-06-06] MEDS: CYANOCOBALAMIN (VITAMIN B-12) 1,000 MCG TABLET. PO SCH (08:58)
[2019-06-06] MEDS: CHOLECALCIFEROL (VITAMIN D3) 1,000 UNIT TABLET PO SCH (08:58)
[2019-06-06] MEDS: CETIRIZINE HCL 10 MG TABLET PO SCH (08:59)
[2019-06-06] MEDS: busPIRone 5 MG TABLET. PO SCH ×3 (08:59→20:47)
[2019-06-06] MEDS: SPIRONOLACTONE 25 MG TABLET PO SCH (08:59)
[2019-06-06] MEDS: PANTOPRAZOLE 40 MG TABLET. PO SCH (08:59)
[2019-06-06] MEDS: ASPIRIN 81 MG TAB.CHEW PO SCH (13:15)
[2019-06-06 15:56] VITALS: BP 119/60
--- NOTE | 2019-06-06 20:18 | PN ---
DATE: 06/05/2019 PSYCHIATRIC PROGRESS NOTE This late entry 06/05/2019 covers elements not covered in my initial note. SUBJECTIVE: I met with the patient evening of 06/05/2019 and staffed at treatment team meeting with the entire team in the morning with the patient's 2 daughters, Jocelynn and Syl attending. We had a detailed review of his history. He was always very high functioning, but somewhat domineering and daughters feel that the diagnosis of bipolar disorder is appropriate, even though he was never treated for this in the past. He was diagnosed by Dr. Vega. In the past, he has been on Depakote and Lexapro, daughters were not sure how well he did on the Depakote. He remains somewhat anxious, obsessive. Symptoms seemed to worsen over the past 5 years after what transpired with his . On the unit, he has been quite anxious, labile, grandiose calling staff by names. UA has reflex to culture. [employer] may account for some of his symptoms. Valproic acid level 06/05/2019 is 53 therapeutic. Obsessive regarding his restroom yelling, slept 6 hours average, appetite 70%, compliant with meds. REVIEW OF SYSTEMS: No CV, , pulmonary, eye system symptoms on review. Much more pleasant as I met with him in the evening done in visits past. MENTAL STATUS EXAM: Reasonably oriented. Speech coherent, can be rapid at times. Abstraction fair, computation impaired, language function intact, attention span short. Mood and affect remain somewhat grandiose, labile. LABORATORY DATA: Reviewed. IMPRESSION: Bipolar disorder, mixed with psychotic features; anxiety disorder, unspecified; impulse control disorder, unspecified; mild cognitive impairment. PLAN: Continue current psychotropics including Depakote level therapeutic. Maintain BuSpar, trazodone, start Seroquel 25 mg 9 a.m., 5:00 p.m. Adjust further as clinically indicated. If the family insists on taking him off the Depakote, we may look at Trileptal or Tegretol as a mood stabilizer. MAN Gabriela NDIAYE MD DR: JONATAN/andrew JOB#: [id number] / [id number]
[2019-06-06] MEDS: DIVALPROEX ER 500 MG TAB.ER.24H PO SCH (20:46)
[2019-06-06] MEDS: TAMSULOSIN 0.4 MG CAP.ER.24H. PO SCH (20:47)
[2019-06-06] MEDS: traZODone 50 MG TABLET. PO SCH (20:50)
--- NOTE | 2019-06-06 21:40 | PDOC ---
Exam Note: José Miguel Note: Please also refer to the separate dictated note~for this date of service dictated separately.~Patient seen individually. Discussed the patient with Nursing staff reviewed the chart.~Reviewed interim history and current functioning. Reviewed vital signs,~Labs/ Radiology~and current medications noted below. Continue current treatment with the changes noted in the dictated addendum note Assessment: Vital Signs/I&O: Vital Signs Date Time Temp Pulse Resp B/P (MAP) Pulse Ox O2 Delivery O2 Flow Rate FiO2 06/06/19 21:30 96 Room Air 06/06/19 17:26 76 119/60 06/06/19 15:56 97.9 18 I & O 06/05/19 06/05/19 06/06/19 15:00 23:00 07:00 Intake Total 480 ml 240 ml 240 ml Balance 480 ml 240 ml 240 ml Current Medications: I have reviewed the current psychotropics carefully including drug interactions. Risk benefit ratio favors no change other than as noted in my dictated progress note. Diagnosis: Problems: (1) Anxiety disorder (2) Dementia in Alzheimer's disease with delusions (3) Dementia in Alzheimer's disease with depression (4) Dementia, vascular, with delusions (5) Dementia, vascular, with depression (6) Bipolar affective, mixed, sev w/ psych WANDA NDIAYE MD Jun 06, 2019 21:40
[2019-06-07] MEDS: IPRATRPIUM/ALBUTEROL 0.5/2.5MG 3 ML NEBU. NEB SCH ×5 (00:34→20:18)
--- NOTE | 2019-06-07 02:30 | NUR ---
Last evening pt was in his room sleeping at shift change. He was easily awaken and took meds whole without problems. He was able to transfer and toilet self without difficulty then he hurried back to bed complaining of being cold and tired and went back to sleep.
--- NOTE | 2019-06-07 02:48 | PN ---
DATE: 06/04/2019 PSYCHIATRIC PROGRESS NOTE This late entry 06/04/2019 covers elements not covered in my initial note. SUBJECTIVE: I met with the patient in the evening of 06/04/2019. Per RUTHY Palmer, the patient slept 7-1/4 hours previous night. He has been sleeping all day. Complains of GI symptoms. REVIEW OF SYSTEMS: Complains of tiredness. No CV, , pulmonary, eye system symptoms on review. MENTAL STATUS EXAM: Oriented to himself and situation. Speech is coherent, has some latency, somewhat dismissive as I met with him, wanting me to leave the room, shut the door. Abstraction fair, computation impaired, language function intact, attention span short. Mood and affect remain somewhat withdrawn. LABORATORY DATA: Reviewed. IMPRESSION: Bipolar 1 disorder, mixed with psychotic features; anxiety disorder, unspecified; impulse control disorder, unspecified. PLAN: Continue psychotropics from initial note. Adjust Depakote to reach therapeutic level. Rest unchanged for now. MAN Gabriela NDIAYE MD DR: JONATAN/andrew JOB#: [id number] / [id number]
[2019-06-07 06:26] VITALS: BP 105/65
[2019-06-07] MEDS: SUCRALFATE 1 GM TABLET. PO SCH ×4 (08:34→19:44)
[2019-06-07] MEDS: CARVEDILOL 6.25 MG TABLET PO SCH ×2 (08:34→17:22)
[2019-06-07] MEDS: PANTOPRAZOLE 40 MG TABLET. PO SCH (08:34)
[2019-06-07] MEDS: busPIRone 5 MG TABLET. PO SCH ×3 (08:35→19:43)
[2019-06-07] MEDS: ASPIRIN 81 MG TAB.CHEW PO SCH (08:35)
[2019-06-07] MEDS: DOCUSATE SODIUM 100 MG CAPSULE PO SCH ×2 (08:35→19:43)
[2019-06-07] MEDS: POTASSIUM CHLORIDE 20 MEQ TABLET.ER. PO SCH (08:36)
[2019-06-07] MEDS: MAG HYDROX/AL HYDROX/SIMETH 30 ML ORAL.SUSP PO SCH ×4 (08:38→19:44)
[2019-06-07] MEDS: MIRABEGRON 25 MG TAB.ER.24H PO SCH (08:38)
[2019-06-07] MEDS: amLODIPine BESYLATE 5 MG TABLET PO SCH (08:38)
[2019-06-07] MEDS: QUEtiapine 25 MG TABLET. PO SCH ×2 (08:38→17:22)
[2019-06-07] MEDS: CLOPIDOGREL BISULFATE 75 MG TABLET PO SCH (08:38)
[2019-06-07] MEDS: traMADol 50 MG TABLET PO SCH ×2 (08:39→19:44)
[2019-06-07] MEDS: CHOLECALCIFEROL (VITAMIN D3) 1,000 UNIT TABLET PO SCH (08:39)
[2019-06-07] MEDS: CETIRIZINE HCL 10 MG TABLET PO SCH (08:39)
[2019-06-07] MEDS: CYANOCOBALAMIN (VITAMIN B-12) 1,000 MCG TABLET. PO SCH (08:39)
[2019-06-07] MEDS: LOSARTAN 50 MG TABLET. PO SCH (09:00)
[2019-06-07] MEDS: PSYLLIUM SEED (WITH SUGAR) PACKET. PO SCH ×2 (09:00→19:43)
[2019-06-07] MEDS: SPIRONOLACTONE 25 MG TABLET PO SCH (09:00)
--- NOTE | 2019-06-07 12:13 | NUR ---
Pt is calm, cooperative, compliant. No agitation, no aggression, no hallucinations, no delusions. He is compliant with his medications and assessment.
[2019-06-07 16:45] VITALS: BP 111/69
[2019-06-07] MEDS: TAMSULOSIN 0.4 MG CAP.ER.24H. PO SCH (19:43)
[2019-06-07] MEDS: DIVALPROEX ER 500 MG TAB.ER.24H PO SCH (19:43)
[2019-06-07] MEDS: CIPROFLOXACIN HCL 250 MG TABLET PO SCH (19:44)
[2019-06-07] MEDS: traZODone 50 MG TABLET. PO SCH (19:44)
[2019-06-07] MEDS: LACTOBACILLUS RHAMNOSUS GG 1 CAPSULE. PO SCH (19:44)
--- NOTE | 2019-06-07 23:27 | PDOC ---
Exam Note: José Miguel Note: Please also refer to the separate dictated note~for this date of service dictated separately.~Patient seen individually. Discussed the patient with Nursing staff reviewed the chart.~Reviewed interim history and current functioning. Reviewed vital signs,~Labs/ Radiology~and current medications noted below. Continue current treatment with the changes noted in the dictated addendum note Assessment: Vital Signs/I&O: Vital Signs Date Time Temp Pulse Resp B/P (MAP) Pulse Ox O2 Delivery O2 Flow Rate FiO2 06/07/19 20:44 97 06/07/19 20:18 Room Air 06/07/19 17:22 64 111/69 06/07/19 16:45 97.9 16 I & O 06/06/19 06/06/19 06/07/19 15:00 23:00 07:00 Intake Total 960 ml 240 ml 240 ml Balance 960 ml 240 ml 240 ml Current Medications: Meds: Current Medications Medications (Trade) Dose Ordered Sig/Rik Route PRN Reason Start Time Stop Time Status Last Admin Dose Admin Ciprofloxacin (Cipro) 250 mg BID PO 06/07/19 21:00 06/07/19 19:44 Lactobacillus Rhamnosus (Culturelle) 1 cap BID PO 06/07/19 21:00 06/07/19 19:44 I have reviewed the current psychotropics carefully including drug interactions. Risk benefit ratio favors no change other than as noted in my dictated progress note. Diagnosis: Problems: (1) Anxiety disorder (2) Dementia in Alzheimer's disease with delusions (3) Dementia in Alzheimer's disease with depression (4) Dementia, vascular, with delusions (5) Dementia, vascular, with depression (6) Bipolar affective, mixed, sev w/ psych WANDA NDIAYE MD Jun 07, 2019 23:27
--- NOTE | 2019-06-07 23:37 | NUR ---
Pt quietly sitting up in w/c in the day room at shift change. Pt calm upon initial approach, but becomes anxious when repeatedly complaining about abdominal pain; pt states "oh, it hurts so bad" and "I think I'm gonna be sick". Pt was provided with reassurance and support. Pt cooperative with assessment and compliant with medications administered whole. Pt started on Cipro for UTI.
[2019-06-08] MEDS: IPRATRPIUM/ALBUTEROL 0.5/2.5MG 3 ML NEBU. NEB SCH ×4 (04:54→19:46)
[2019-06-08 05:51] VITALS: BP 115/66
[2019-06-08] MEDS: SUCRALFATE 1 GM TABLET. PO SCH ×4 (08:27→20:36)
[2019-06-08] MEDS: PSYLLIUM SEED (WITH SUGAR) PACKET. PO SCH ×2 (08:27→20:34)
[2019-06-08] MEDS: PANTOPRAZOLE 40 MG TABLET. PO SCH (08:28)
[2019-06-08] MEDS: CARVEDILOL 6.25 MG TABLET PO SCH ×2 (08:28→16:32)
[2019-06-08] MEDS: DOCUSATE SODIUM 100 MG CAPSULE PO SCH ×2 (08:29→20:37)
[2019-06-08] MEDS: CIPROFLOXACIN HCL 250 MG TABLET PO SCH ×2 (08:29→20:37)
[2019-06-08] MEDS: busPIRone 5 MG TABLET. PO SCH ×3 (08:29→20:37)
[2019-06-08] MEDS: LOSARTAN 50 MG TABLET. PO SCH (08:29)
[2019-06-08] MEDS: LACTOBACILLUS RHAMNOSUS GG 1 CAPSULE. PO SCH ×2 (08:29→20:36)
[2019-06-08] MEDS: SPIRONOLACTONE 25 MG TABLET PO SCH (08:29)
[2019-06-08] MEDS: ASPIRIN 81 MG TAB.CHEW PO SCH (08:29)
[2019-06-08] MEDS: MIRABEGRON 25 MG TAB.ER.24H PO SCH (08:30)
[2019-06-08] MEDS: amLODIPine BESYLATE 5 MG TABLET PO SCH (08:30)
[2019-06-08] MEDS: CLOPIDOGREL BISULFATE 75 MG TABLET PO SCH (08:30)
[2019-06-08] MEDS: MAG HYDROX/AL HYDROX/SIMETH 30 ML ORAL.SUSP PO SCH ×4 (08:30→20:36)
[2019-06-08] MEDS: POTASSIUM CHLORIDE 20 MEQ TABLET.ER. PO SCH (08:30)
[2019-06-08] MEDS: CHOLECALCIFEROL (VITAMIN D3) 1,000 UNIT TABLET PO SCH (08:31)
[2019-06-08] MEDS: CYANOCOBALAMIN (VITAMIN B-12) 1,000 MCG TABLET. PO SCH (08:31)
[2019-06-08] MEDS: QUEtiapine 25 MG TABLET. PO SCH ×2 (08:31→16:32)
[2019-06-08] MEDS: CETIRIZINE HCL 10 MG TABLET PO SCH (08:31)
[2019-06-08] MEDS: traMADol 50 MG TABLET PO SCH ×2 (08:33→20:37)
--- NOTE | 2019-06-08 10:53 | NUR ---
Pt is calm, cooperative, compliant. No agitation, no aggression, no hallucinations, no delusions. Pt is withdrawn to his room. He is compliant with his medications and assessment.
[2019-06-08 16:23] VITALS: BP 108/67
[2019-06-08 19:55] VITALS: BP 135/75
[2019-06-08] MEDS: DIVALPROEX ER 500 MG TAB.ER.24H PO SCH (20:37)
[2019-06-08] MEDS: TAMSULOSIN 0.4 MG CAP.ER.24H. PO SCH (20:37)
[2019-06-08] MEDS: traZODone 50 MG TABLET. PO SCH (20:37)
--- NOTE | 2019-06-08 21:55 | PDOC ---
Exam Note: José Miguel Note: Please also refer to the separate dictated note~for this date of service dictated separately.~Patient seen individually. Discussed the patient with Nursing staff reviewed the chart.~Reviewed interim history and current functioning. Reviewed vital signs,~Labs/ Radiology~and current medications noted below. Continue current treatment with the changes noted in the dictated addendum note Assessment: Vital Signs/I&O: Vital Signs Date Time Temp Pulse Resp B/P (MAP) Pulse Ox O2 Delivery O2 Flow Rate FiO2 06/08/19 20:37 95 06/08/19 19:55 97.7 65 19 135/75 (95) Room Air I & O 06/07/19 06/07/19 06/08/19 15:00 23:00 07:00 Intake Total 480 ml 240 ml Balance 480 ml 240 ml Current Medications: I have reviewed the current psychotropics carefully including drug interactions. Risk benefit ratio favors no change other than as noted in my dictated progress note. Diagnosis: Problems: (1) Anxiety disorder (2) Dementia in Alzheimer's disease with delusions (3) Dementia in Alzheimer's disease with depression (4) Dementia, vascular, with delusions (5) Dementia, vascular, with depression (6) Bipolar affective, mixed, sev w/ psych WANDA NDIAYE MD Jun 08, 2019 21:55
--- NOTE | 2019-06-09 00:07 | NUR ---
Pt withdrawn to room, laying in bed at shift change. Pt calm, pleasant, and appropriate this evening, less preoccupation with abdominal pain noted. Pt pleasant and social with this nurse during interaction. Pt cooperative with assessment and compliant with medications administered whole in applesauce.
[2019-06-09] MEDS: IPRATRPIUM/ALBUTEROL 0.5/2.5MG 3 ML NEBU. NEB SCH ×5 (05:07→23:11)
[2019-06-09 05:43] VITALS: BP 113/69
[2019-06-09 07:28] LABS: CALCIUM 8.5 mg/dL (8.5-10.1); GFR 70.8; POTASSIUM 4.7 mmol/L (3.5-5.1)
[2019-06-09] MEDS: PANTOPRAZOLE 40 MG TABLET. PO SCH (08:18)
[2019-06-09] MEDS: SUCRALFATE 1 GM TABLET. PO SCH ×4 (08:18→20:32)
[2019-06-09] MEDS: CARVEDILOL 6.25 MG TABLET PO SCH ×2 (08:18→17:15)
[2019-06-09] MEDS: busPIRone 5 MG TABLET. PO SCH ×3 (08:19→20:33)
[2019-06-09] MEDS: ASPIRIN 81 MG TAB.CHEW PO SCH (08:20)
[2019-06-09] MEDS: DOCUSATE SODIUM 100 MG CAPSULE PO SCH ×2 (08:20→20:32)
[2019-06-09] MEDS: CIPROFLOXACIN HCL 250 MG TABLET PO SCH ×2 (08:20→20:33)
[2019-06-09] MEDS: POTASSIUM CHLORIDE 20 MEQ TABLET.ER. PO SCH (08:21)
[2019-06-09] MEDS: MAG HYDROX/AL HYDROX/SIMETH 30 ML ORAL.SUSP PO SCH ×3 (08:21→20:32)
[2019-06-09] MEDS: LACTOBACILLUS RHAMNOSUS GG 1 CAPSULE. PO SCH ×2 (08:21→20:32)
[2019-06-09] MEDS: MIRABEGRON 25 MG TAB.ER.24H PO SCH (08:21)
[2019-06-09] MEDS: amLODIPine BESYLATE 5 MG TABLET PO SCH (08:22)
[2019-06-09] MEDS: CLOPIDOGREL BISULFATE 75 MG TABLET PO SCH (08:22)
[2019-06-09] MEDS: QUEtiapine 25 MG TABLET. PO SCH ×2 (08:27→17:15)
[2019-06-09] MEDS: CHOLECALCIFEROL (VITAMIN D3) 1,000 UNIT TABLET PO SCH (08:28)
[2019-06-09] MEDS: traMADol 50 MG TABLET PO SCH ×2 (08:28→20:33)
[2019-06-09] MEDS: CETIRIZINE HCL 10 MG TABLET PO SCH (08:28)
[2019-06-09] MEDS: CYANOCOBALAMIN (VITAMIN B-12) 1,000 MCG TABLET. PO SCH (08:28)
[2019-06-09] MEDS: LOSARTAN 50 MG TABLET. PO SCH (09:00)
[2019-06-09] MEDS: PSYLLIUM SEED (WITH SUGAR) PACKET. PO SCH ×2 (09:00→20:33)
[2019-06-09] MEDS: SPIRONOLACTONE 25 MG TABLET PO SCH (09:00)
--- NOTE | 2019-06-09 09:29 | PN ---
DATE: 06/06/2019 PSYCHIATRIC PROGRESS NOTE This late entry 06/06/2019 covers elements not covered in my initial note. SUBJECTIVE: I met with the patient evening of 06/06/2019. Per RUTHY Huynh, the patient slept 8-3/4 hours previous night. He has been withdrawn to his room, complains of some abdominal pain. UA has reflux to culture. REVIEW OF SYSTEMS: Other than above, no CV, , pulmonary, eye system symptoms on review. MENTAL STATUS EXAM: Oriented to himself and situation. Speech is less pressured. Abstraction fair, computation impaired, language function intact, attention span short. Mood and affect remain somewhat anxious, labile, less so than before. LABORATORY DATA: Reviewed. IMPRESSION: Unchanged from initial note and he probably has a urinary tract infection. PLAN: No change from initial note. Await urine C and S and then treat. Adjust Depakote to reach therapeutic level for his bipolar symptoms. WANDA NDIAYE MD DR: JONATAN/andrew JOB#: [id number] / [id number]
--- NOTE | 2019-06-09 10:10 | NUR ---
Pt is withdrawn to his room. Pt is calm, cooperative, compliant. No agitation, no aggression, no hallucinations, no delusions. He is compliant with his medications and assessment.
[2019-06-09 16:08] VITALS: BP 128/73
--- NOTE | 2019-06-09 18:00 | NUR ---
COVER CUTTER called nurse into pts room and informed nurse she heard the pts WC "clank" then the pt was on the floor Staff assessed pt who had no c/o of pain or discomfort, no bruising, no swelling, no redness. Pt stated to staff, "I didn't fall I laid on the floor."
[2019-06-09] MEDS: TAMSULOSIN 0.4 MG CAP.ER.24H. PO SCH (20:32)
[2019-06-09] MEDS: DIVALPROEX ER 500 MG TAB.ER.24H PO SCH (20:33)
--- NOTE | 2019-06-09 21:18 | PDOC ---
Exam Note: José Miguel Note: Please also refer to the separate dictated note~for this date of service dictated separately.~Patient seen individually. Discussed the patient with Nursing staff reviewed the chart.~Reviewed interim history and current functioning. Reviewed vital signs,~Labs/ Radiology~and current medications noted below. Continue current treatment with the changes noted in the dictated addendum note Assessment: Vital Signs/I&O: Vital Signs Date Time Temp Pulse Resp B/P (MAP) Pulse Ox O2 Delivery O2 Flow Rate FiO2 06/09/19 21:15 96 Room Air 06/09/19 17:15 64 128/73 06/09/19 16:08 98.1 16 I & O 06/08/19 06/08/19 06/09/19 15:00 23:00 07:00 Intake Total 240 ml 0 ml 0 ml Balance 240 ml 0 ml 0 ml Labs: Laboratory Tests Test 06/09/19 06:57 Sodium Level 130 mmol/L (136-145) L Potassium Level 4.7 mmol/L (3.5-5.1) Chloride Level 97 mmol/L (98-107) L Carbon Dioxide Level 23 mmol/L (21-32) Anion Gap 10 (6-14) Blood Urea Nitrogen 20 mg/dL (8-26) Creatinine 1.0 mg/dL (0.7-1.3) Estimated GFR (Cockcroft-Gault) 70.8 Glucose Level 89 mg/dL (70-99) Calcium Level 8.5 mg/dL (8.5-10.1) Current Medications: I have reviewed the current psychotropics carefully including drug interactions. Risk benefit ratio favors no change other than as noted in my dictated progress note. Diagnosis: Problems: (1) Anxiety disorder (2) Dementia in Alzheimer's disease with delusions (3) Dementia in Alzheimer's disease with depression (4) Dementia, vascular, with delusions (5) Dementia, vascular, with depression (6) Bipolar affective, mixed, sev w/ psych WANDA NDIAYE MD Jun 09, 2019 21:18
--- NOTE | 2019-06-09 23:15 | NUR ---
Nursing Note Pt compliant but mumbles constantly. Takes PO meds but tries to give it to the neighbor in the day room instructed him that they are for his use only. Makes jokes and complains of being tired but is otherwise in a good mood.
--- NOTE | 2019-06-10 05:11 | PN ---
DATE: 06/08/2019 PSYCHIATRIC PROGRESS NOTE. This late entry of 06/08/2019 covers the elements not covered in my initial note. SUBJECTIVE: I met with the patient in the evening of 06/08/2019. The patient slept 7 hours previous night. He has been compliant. I met with him in his room at length. He is less grandiose, less agitated. UTI is being treated on Cipro. REVIEW OF SYSTEMS: No CV, , pulmonary, eye, ENT system symptoms on review. Has some vague abdominal discomfort, defer to Dr. Leung. MENTAL STATUS EXAM: Oriented to himself and situation. Speech coherent, less pressured. Abstraction fair, computation impaired, language function intact, attention span short. Mood and affect remain somewhat labile, anxious, but much improved. LABORATORY DATA: Reviewed. IMPRESSION: Unchanged from initial note. PLAN: No change from initial note. MAN Gabriela NDIAYE MD DR: JONATAN/andrew JOB#: [id number] / [id number]
[2019-06-10 05:53] VITALS: BP 125/68
[2019-06-10] MEDS: IPRATRPIUM/ALBUTEROL 0.5/2.5MG 3 ML NEBU. NEB SCH ×4 (06:16→21:16)
--- NOTE | 2019-06-10 06:50 | PN ---
DATE: 06/07/2019 PSYCHIATRIC PROGRESS NOTE This late entry 06/07/2019 covers elements not covered in my initial note. SUBJECTIVE: I met with the patient evening of 06/07/2019. The patient slept 8-3/4 hours the previous night. He has not been yelling. He is on Cipro for his UTI. He does complain of abdominal pain. He has not been name calling to staff. Sodium is somewhat low. Lasix is discontinued. We will start on Aldactone, defer to Dr. Leung. REVIEW OF SYSTEMS: No CV, , pulmonary, eye, ENT system symptoms on review. MENTAL STATUS EXAM: Oriented to himself and situation. Speech is coherent, less pressured. Abstraction fair, computation impaired, language function intact, attention span short. Mood and affect remain somewhat grandiose, but less so than before. LABORATORY DATA: Reviewed. IMPRESSION: Bipolar disorder, mixed with psychotic features versus bipolar disorder; manic with psychotic features; urinary tract infection, anxiety disorder, unspecified; impulse control disorder. PLAN: Continue psychotropics from initial note. Depakote is being adjusted to reach therapeutic level. Maintain BuSpar, trazodone along with Ativan p.r.n. and Seroquel 25 mg at bedtime. MAN Gabriela NDIAYE MD DR: JONATAN/andrew JOB#: [id number] / [id number]
[2019-06-10] MEDS: MIRABEGRON 25 MG TAB.ER.24H PO SCH (09:18)
[2019-06-10] MEDS: SPIRONOLACTONE 25 MG TABLET PO SCH (09:18)
[2019-06-10] MEDS: busPIRone 5 MG TABLET. PO SCH ×3 (09:18→21:10)
[2019-06-10] MEDS: CETIRIZINE HCL 10 MG TABLET PO SCH (09:18)
[2019-06-10] MEDS: DOCUSATE SODIUM 100 MG CAPSULE PO SCH ×2 (09:19→21:10)
[2019-06-10] MEDS: CARVEDILOL 6.25 MG TABLET PO SCH ×2 (09:19→16:43)
[2019-06-10] MEDS: amLODIPine BESYLATE 5 MG TABLET PO SCH (09:19)
[2019-06-10] MEDS: LACTOBACILLUS RHAMNOSUS GG 1 CAPSULE. PO SCH ×2 (09:19→21:08)
[2019-06-10] MEDS: PSYLLIUM SEED (WITH SUGAR) PACKET. PO SCH ×2 (09:19→21:11)
[2019-06-10] MEDS: PANTOPRAZOLE 40 MG TABLET. PO SCH (09:19)
[2019-06-10] MEDS: ASPIRIN 81 MG TAB.CHEW PO SCH (09:19)
[2019-06-10] MEDS: SUCRALFATE 1 GM TABLET. PO SCH ×4 (09:20→21:09)
[2019-06-10] MEDS: CYANOCOBALAMIN (VITAMIN B-12) 1,000 MCG TABLET. PO SCH (09:20)
[2019-06-10] MEDS: traMADol 50 MG TABLET PO SCH ×2 (09:20→21:09)
[2019-06-10] MEDS: CHOLECALCIFEROL (VITAMIN D3) 1,000 UNIT TABLET PO SCH (09:21)
[2019-06-10] MEDS: CLOPIDOGREL BISULFATE 75 MG TABLET PO SCH (09:21)
[2019-06-10] MEDS: QUEtiapine 25 MG TABLET. PO SCH ×2 (09:21→16:43)
[2019-06-10] MEDS: LOSARTAN 50 MG TABLET. PO SCH (09:21)
[2019-06-10] MEDS: CIPROFLOXACIN HCL 250 MG TABLET PO SCH ×2 (09:21→21:10)
[2019-06-10] MEDS: POTASSIUM CHLORIDE 20 MEQ TABLET.ER. PO SCH (09:21)
[2019-06-10] MEDS: MAG HYDROX/AL HYDROX/SIMETH 30 ML ORAL.SUSP PO SCH ×4 (09:22→21:12)
[2019-06-10 17:18] VITALS: BP 106/50
--- NOTE | 2019-06-10 17:45 | NUR ---
Patient was withdrawn to his bed most of the day. He was mildly anxious and continuously talking during interactions but he was complaint with all medications and assessments. He was able to transfer and toilet himself without assistance. He was cooperative with cares. Will continue to monitor and report to oncoming shift.
[2019-06-10] MEDS: DIVALPROEX ER 500 MG TAB.ER.24H PO SCH (21:11)
[2019-06-10] MEDS: TAMSULOSIN 0.4 MG CAP.ER.24H. PO SCH (21:12)
--- NOTE | 2019-06-10 21:12 | PDOC ---
Exam Note: José Miguel Note: Please also refer to the separate dictated note~for this date of service dictated separately.~Patient seen individually. Discussed the patient with Nursing staff reviewed the chart.~Reviewed interim history and current functioning. Reviewed vital signs,~Labs/ Radiology~and current medications noted below. Continue current treatment with the changes noted in the dictated addendum note Assessment: Vital Signs/I&O: Vital Signs Date Time Temp Pulse Resp B/P (MAP) Pulse Ox O2 Delivery O2 Flow Rate FiO2 06/10/19 17:18 98.0 61 16 106/50 (68) 95 06/10/19 15:34 Room Air I & O 06/09/19 06/09/19 06/10/19 15:00 23:00 07:00 Intake Total 360 ml 360 ml Balance 360 ml 360 ml Current Medications: Meds: Current Medications Medications (Trade) Dose Ordered Sig/Rik Route PRN Reason Start Time Stop Time Status Last Admin Dose Admin Al Hydroxide/Mg Hydroxide (Mylanta Plus Xs) 5 ml TIDWMEALS PO 06/10/19 08:00 06/10/19 16:43 I have reviewed the current psychotropics carefully including drug interactions. Risk benefit ratio favors no change other than as noted in my dictated progress note. Diagnosis: Problems: (1) Anxiety disorder (2) Dementia in Alzheimer's disease with delusions (3) Dementia in Alzheimer's disease with depression (4) Dementia, vascular, with delusions (5) Dementia, vascular, with depression (6) Bipolar affective, mixed, sev w/ psych WANDA NDIAYE MD Jun 10, 2019 21:12
--- NOTE | 2019-06-11 04:29 | PN ---
DATE: 06/09/2019 PSYCHIATRIC PROGRESS NOTE This late entry of 06/09/2019 covers the elements not covered in my initial note. SUBJECTIVE: I met with the patient in the evening. Per report from RUTHY Romeo, the patient slept 8-1/2 hours previous night. Sodium 130, somewhat low. Aldactone was held. We will defer to Dr. Leung. REVIEW OF SYSTEMS: No CV, , pulmonary, eye system symptoms on review. Ambulation somewhat impaired, walks with 1-person assist. MENTAL STATUS EXAM: Reasonably oriented. Speech is coherent, less pressured. Abstraction fair, computation impaired, language function intact, attention span short. Mood and affect, lability is improved. LABORATORY DATA: Reviewed. IMPRESSION: Unchanged from initial note. PLAN: Continue current psychotropics. Valproic acid level was 53 on the 06/05/2019. Maintain rest unchanged for now, may need to increase BuSpar or Seroquel depending on anxiety, paranoia and mood lability, resurfacing. MAN Gabriela NDIAYE MD DR: JONATAN/andrew JOB#: [id number] / [id number]
[2019-06-11 04:49] VITALS: BP 115/62
--- NOTE | 2019-06-11 04:50 | NUR ---
Nursing Note Pt isolates to room, med compliant but states he doesn't feel well but cannot articulate why. No agitation this pm, smiles on approach.
[2019-06-11] MEDS: IPRATRPIUM/ALBUTEROL 0.5/2.5MG 3 ML NEBU. NEB SCH ×5 (05:50→22:00)
--- NOTE | 2019-06-11 08:00 | NUR ---
Patient was in his room when LAB went to draw the patient's blood. Patient became upset and resistive. PRN Ativan given @0830. Lab will be back to re-draw patient.
[2019-06-11] MEDS: MAG HYDROX/AL HYDROX/SIMETH 30 ML ORAL.SUSP PO SCH ×4 (08:09→20:19)
[2019-06-11] MEDS: PSYLLIUM SEED (WITH SUGAR) PACKET. PO SCH ×2 (08:09→20:20)
[2019-06-11] MEDS: POTASSIUM CHLORIDE 20 MEQ TABLET.ER. PO SCH (08:09)
[2019-06-11] MEDS: CLOPIDOGREL BISULFATE 75 MG TABLET PO SCH (08:10)
[2019-06-11] MEDS: LACTOBACILLUS RHAMNOSUS GG 1 CAPSULE. PO SCH ×2 (08:10→20:20)
[2019-06-11] MEDS: traMADol 50 MG TABLET PO SCH ×2 (08:10→20:21)
[2019-06-11] MEDS: CARVEDILOL 6.25 MG TABLET PO SCH ×2 (08:12→16:40)
[2019-06-11] MEDS: DOCUSATE SODIUM 100 MG CAPSULE PO SCH ×2 (08:12→20:20)
[2019-06-11] MEDS: LORazepam 0.5 MG TABLET PO PRN (08:12)
[2019-06-11] MEDS: SUCRALFATE 1 GM TABLET. PO SCH ×4 (08:12→20:21)
[2019-06-11] MEDS: QUEtiapine 25 MG TABLET. PO SCH ×2 (08:13→16:39)
[2019-06-11] MEDS: PANTOPRAZOLE 40 MG TABLET. PO SCH (08:13)
[2019-06-11] MEDS: ASPIRIN 81 MG TAB.CHEW PO SCH (08:13)
[2019-06-11] MEDS: SPIRONOLACTONE 25 MG TABLET PO SCH (08:13)
[2019-06-11] MEDS: CHOLECALCIFEROL (VITAMIN D3) 1,000 UNIT TABLET PO SCH (08:13)
[2019-06-11] MEDS: amLODIPine BESYLATE 5 MG TABLET PO SCH (08:13)
[2019-06-11] MEDS: CETIRIZINE HCL 10 MG TABLET PO SCH (08:13)
[2019-06-11] MEDS: CYANOCOBALAMIN (VITAMIN B-12) 1,000 MCG TABLET. PO SCH (08:13)
[2019-06-11] MEDS: CIPROFLOXACIN HCL 250 MG TABLET PO SCH ×2 (08:14→20:20)
[2019-06-11] MEDS: LOSARTAN 50 MG TABLET. PO SCH (08:14)
[2019-06-11] MEDS: MIRABEGRON 25 MG TAB.ER.24H PO SCH (08:14)
[2019-06-11] MEDS: busPIRone 5 MG TABLET. PO SCH ×3 (08:14→20:21)
[2019-06-11 09:53] LABS: BASO # 0.1 x10^3/uL (0.0-0.2); BASO % 1 % (0-3); EOS # 0.4 x10^3/uL (0.0-0.7); EOS % 5 % (0-3); HEMATOCRIT 35.5 % (39.0-53.0); HEMOGLOBIN 11.5 g/dL (13.0-17.5); LYMPH # 1.1 x10^3/uL (1.0-4.8); LYMPH % 15 % (24-48); MEAN CORPUSCULAR HEMOGLOBIN 30 pg (25-35); MEAN CORPUSCULAR HGB CONC 32 g/dL (31-37); MEAN CORPUSCULAR VOLUME 93 fL (79-100); MONO # 0.5 x10^3/uL (0.0-1.1); MONO % 7 % (0-9); NEUT # 5.6 x10^3uL (1.8-7.7); NEUT % 73 % (31-73); PLATELET COUNT 219 x10^3/uL (140-400); RED BLOOD COUNT 3.81 x10^6/uL (4.30-5.70); RED CELL DISTRIBUTION WIDTH 18.7 % (11.5-14.5); WHITE BLOOD COUNT 7.7 x10^3/uL (4.0-11.0)
[2019-06-11 10:05] LABS: ALBUMIN 3.3 g/dL (3.4-5.0); CALCIUM 8.6 mg/dL (8.5-10.1); CREATININE 0.9 mg/dL (0.7-1.3); POTASSIUM 4.9 mmol/L (3.5-5.1); TOTAL BILIRUBIN 0.3 mg/dL (0.2-1.0); TOTAL PROTEIN 6.7 g/dL (6.4-8.2)
--- NOTE | 2019-06-11 10:34 | NUR ---
LYNDSAY returned a call to pt. daughter, Syl, regarding treatment team. Syl and Jocelynn would like be here in person for this meeting and plan to meet with pt. during visiting hours. Syl had asked about a family meeting. LYNDSAY shared since we are a short term stay, we do not have family meetings, but they are welcome to join treatment team. Syl also expressed her concern the doctor did not know pt. was on Depakote previously. SW encouraged Syl to speak to nursing regarding any medication concerns.
--- NOTE | 2019-06-11 12:29 | NUR ---
Patient was calm, and cooperative with medications and assessments. Patient was withdrawn to his bed most of the day. No agitation and aggression.
--- NOTE | 2019-06-11 14:18 | NUR ---
SW contacted pt. daughter, Jocelynn, to discuss treatment team. SW requested they be here by 10:00 a.m., and if they were unable to make it, we would contact them by phone. SW also shared previous pt. records were requested and received, in regards to a concern over the doctor not know pt. was on Depakote, and pt. appears to be doing well at this time.
[2019-06-11 16:01] VITALS: BP 109/63
[2019-06-11] MEDS: DIVALPROEX ER 500 MG TAB.ER.24H PO SCH (20:20)
[2019-06-11] MEDS: TAMSULOSIN 0.4 MG CAP.ER.24H. PO SCH (20:20)
--- NOTE | 2019-06-11 21:46 | PDOC ---
Exam Note: José Miguel Note: Please also refer to the separate dictated note~for this date of service dictated separately.~Patient seen individually. Discussed the patient with Nursing staff reviewed the chart.~Reviewed interim history and current functioning. Reviewed vital signs,~Labs/ Radiology~and current medications noted below. Continue current treatment with the changes noted in the dictated addendum note Assessment: Vital Signs/I&O: Vital Signs Date Time Temp Pulse Resp B/P (MAP) Pulse Ox O2 Delivery O2 Flow Rate FiO2 06/11/19 20:49 96 Room Air 06/11/19 16:40 69 109/63 06/11/19 16:01 98.4 16 I & O 06/10/19 06/10/19 06/11/19 15:00 23:00 07:00 Intake Total 720 ml 240 ml 600 ml Balance 720 ml 240 ml 600 ml Labs: Laboratory Tests Test 06/11/19 09:32 White Blood Count 7.7 x10^3/uL (4.0-11.0) Red Blood Count 3.81 x10^6/uL (4.30-5.70) L Hemoglobin 11.5 g/dL (13.0-17.5) L Hematocrit 35.5 % (39.0-53.0) L Mean Corpuscular Volume 93 fL (79-100) Mean Corpuscular Hemoglobin 30 pg (25-35) Mean Corpuscular Hemoglobin Concent 32 g/dL (31-37) Red Cell Distribution Width 18.7 % (11.5-14.5) H Platelet Count 219 x10^3/uL (140-400) Neutrophils (%) (Auto) 73 % (31-73) Lymphocytes (%) (Auto) 15 % (24-48) L Monocytes (%) (Auto) 7 % (0-9) Eosinophils (%) (Auto) 5 % (0-3) H Basophils (%) (Auto) 1 % (0-3) Neutrophils # (Auto) 5.6 x10^3uL (1.8-7.7) Lymphocytes # (Auto) 1.1 x10^3/uL (1.0-4.8) Monocytes # (Auto) 0.5 x10^3/uL (0.0-1.1) Eosinophils # (Auto) 0.4 x10^3/uL (0.0-0.7) Basophils # (Auto) 0.1 x10^3/uL (0.0-0.2) Sodium Level 131 mmol/L (136-145) L Potassium Level 4.9 mmol/L (3.5-5.1) Chloride Level 97 mmol/L (98-107) L Carbon Dioxide Level 23 mmol/L (21-32) Anion Gap 11 (6-14) Blood Urea Nitrogen 20 mg/dL (8-26) Creatinine 0.9 mg/dL (0.7-1.3) Estimated GFR (Cockcroft-Gault) 80.0 BUN/Creatinine Ratio 22 (6-20) H Glucose Level 114 mg/dL (70-99) H Calcium Level 8.6 mg/dL (8.5-10.1) Total Bilirubin 0.3 mg/dL (0.2-1.0) Aspartate Amino Transferase (AST) 19 U/L (15-37) Alanine Aminotransferase (ALT) 14 U/L (16-63) L Alkaline Phosphatase 85 U/L (46-116) Total Protein 6.7 g/dL (6.4-8.2) Albumin 3.3 g/dL (3.4-5.0) L Albumin/Globulin Ratio 1.0 (1.0-1.7) Current Medications: I have reviewed the current psychotropics carefully including drug interactions. Risk benefit ratio favors no change other than as noted in my dictated progress note. Diagnosis: Problems: (1) Anxiety disorder (2) Dementia in Alzheimer's disease with delusions (3) Dementia in Alzheimer's disease with depression (4) Dementia, vascular, with delusions (5) Dementia, vascular, with depression (6) Bipolar affective, mixed, sev w/ psych WANDA NDIAYE MD Jun 11, 2019 21:46
--- NOTE | 2019-06-11 23:43 | NUR ---
Nursing note Pt in good spirits this pm is pleasant calm and interactive. Takes quite a while to swallow meds gave him ice cream to help the pills go down easier and it worked well. Ready for HS no complaints.
[2019-06-12] MEDS: IPRATRPIUM/ALBUTEROL 0.5/2.5MG 3 ML NEBU. NEB SCH ×5 (02:29→20:40)
[2019-06-12 05:23] VITALS: BP 137/78
--- NOTE | 2019-06-12 09:05 | NUR ---
WEEKLY ACTIVITY THERAPY NOTE Date of Admission: 05/23/2019 Date of AT Assessment: 05/27/2019 Goal aimed: to increase engagement Initial Goal: Pt. will participate in at least three Activity Therapy individual sessions or groups before discharge. Weekly progress towards goal: on track, 2/3 Group participation level: zero Weekly highlights: Behaviors observed: not around group at all, in room Plan: Beneficial adaptations: hearing amplifier possibly Addendum: 06/12/19 at 0932 by KHAI BARRIENTOS ACT Plan: no change to goal
[2019-06-12] MEDS: MAG HYDROX/AL HYDROX/SIMETH 30 ML ORAL.SUSP PO SCH ×4 (09:24→20:02)
[2019-06-12] MEDS: CIPROFLOXACIN HCL 250 MG TABLET PO SCH ×2 (09:25→20:02)
[2019-06-12] MEDS: MIRABEGRON 25 MG TAB.ER.24H PO SCH (09:25)
[2019-06-12] MEDS: busPIRone 5 MG TABLET. PO SCH ×3 (09:25→20:02)
[2019-06-12] MEDS: traMADol 50 MG TABLET PO SCH ×2 (09:26→20:03)
[2019-06-12] MEDS: SPIRONOLACTONE 25 MG TABLET PO SCH (09:26)
[2019-06-12] MEDS: CETIRIZINE HCL 10 MG TABLET PO SCH (09:26)
[2019-06-12] MEDS: QUEtiapine 25 MG TABLET. PO SCH ×2 (09:26→16:41)
[2019-06-12] MEDS: POTASSIUM CHLORIDE 20 MEQ TABLET.ER. PO SCH (09:26)
[2019-06-12] MEDS: LACTOBACILLUS RHAMNOSUS GG 1 CAPSULE. PO SCH (09:27)
[2019-06-12] MEDS: LOSARTAN 50 MG TABLET. PO SCH (09:27)
[2019-06-12] MEDS: ASPIRIN 81 MG TAB.CHEW PO SCH (09:27)
[2019-06-12] MEDS: CLOPIDOGREL BISULFATE 75 MG TABLET PO SCH (09:27)
[2019-06-12] MEDS: PANTOPRAZOLE 40 MG TABLET. PO SCH (09:27)
[2019-06-12] MEDS: PSYLLIUM SEED (WITH SUGAR) PACKET. PO SCH ×2 (09:27→20:02)
[2019-06-12] MEDS: amLODIPine BESYLATE 5 MG TABLET PO SCH (09:28)
[2019-06-12] MEDS: CYANOCOBALAMIN (VITAMIN B-12) 1,000 MCG TABLET. PO SCH (09:28)
[2019-06-12] MEDS: CARVEDILOL 6.25 MG TABLET PO SCH ×2 (09:28→16:40)
[2019-06-12] MEDS: CHOLECALCIFEROL (VITAMIN D3) 1,000 UNIT TABLET PO SCH (09:28)
[2019-06-12] MEDS: SUCRALFATE 1 GM TABLET. PO SCH ×4 (09:29→20:02)
[2019-06-12] MEDS: DOCUSATE SODIUM 100 MG CAPSULE PO SCH ×2 (09:31→20:02)
--- NOTE | 2019-06-12 11:51 | NUR ---
LYNDSAY contacted JULIO Abdullahi at [facility], regarding pt. progress and discharge scheduled for 06/17/2019. LYNDSAY will fax updated pt. notes on Sunday.
--- NOTE | 2019-06-12 11:58 | NUR ---
WEEKLY NOTE Pt. daughters, Jocelynn and Syl, were present for treatment team. Pt. has been eating 100% of meals and sleeping an average of 8 hours. Pt. has been compliant and cooperative with medications and assessments. Pt. is often withdrawn to his room but has been calm and is no longer name calling. Pt. will return to [facility] on 06/17/2019.
--- NOTE | 2019-06-12 13:59 | PN ---
DATE: 06/10/2019 PSYCHIATRIC PROGRESS NOTE This late entry 06/10/2019 covers elements not covered in my initial note. SUBJECTIVE: I met with the patient evening of 06/10/2019. Per nurseLino, nursing report, the patient slept 6-1/2 hours previous night. He has been less agitated, less grandiose, less labile and less sarcastic and aggressive, easier to understand. REVIEW OF SYSTEMS: Ambulation impaired, in wheelchair. No CV, , pulmonary, eye system symptoms on review. MENTAL STATUS EXAM: Oriented to himself and situation. Speech as above. Abstraction fair, computation impaired, language function intact, attention span short. Mood and affect remains less labile, anxious. LABORATORY DATA: Reviewed. IMPRESSION: Bipolar disorder, mixed with psychotic features. Rest unchanged. PLAN: No change from initial note. Continue Depakote, BuSpar, trazodone, Seroquel. Valproic acid level therapeutic at 53. MAN Gabriela NDIAYE MD DR: JONATAN/andrew JOB#: [id number] / [id number]
[2019-06-12 15:44] VITALS: BP 105/46
--- NOTE | 2019-06-12 16:50 | RAD ---
CHEST PA LATERAL History: Increased wheezing and shortness of breath. Comparison: May 22, 2019. Findings: Hyperinflation. Scattered parenchymal linear opacities, likely scarring. Left-sided pacemaker, unchanged. Prior median sternotomy. Valve replacement. No pneumothorax. No focal consolidation or pleural effusion. Impression: 1. Hyperinflation. 2. Otherwise, negative chest. Electronically signed by: John Paul Jones DO (06/12/2019 4:48 PM) [facility]
--- NOTE | 2019-06-12 18:38 | NUR ---
Patient was withdrawn to his bed most of the day. He was calm, compliant, forgetful, and mildly confused. He was cooperative with cares. He has a more severe cough and increased wheezing. Will continue to monitor and report to oncoming shift.
[2019-06-12] MEDS: DIVALPROEX ER 500 MG TAB.ER.24H PO SCH (20:02)
[2019-06-12] MEDS: TAMSULOSIN 0.4 MG CAP.ER.24H. PO SCH (20:03)
--- NOTE | 2019-06-12 21:41 | PDOC ---
Exam Note: José Miguel Note: Please also refer to the separate dictated note~for this date of service dictated separately.~Patient seen individually. Discussed the patient with Nursing staff reviewed the chart.~Reviewed interim history and current functioning. Reviewed vital signs,~Labs/ Radiology~and current medications noted below. Continue current treatment with the changes noted in the dictated addendum note Assessment: Vital Signs/I&O: Vital Signs Date Time Temp Pulse Resp B/P (MAP) Pulse Ox O2 Delivery O2 Flow Rate FiO2 06/12/19 20:40 97 Room Air 06/12/19 16:40 66 105/46 06/12/19 15:44 98.1 16 I & O 06/11/19 06/11/19 06/12/19 15:00 23:00 07:00 Intake Total 600 ml 240 ml 240 ml Balance 600 ml 240 ml 240 ml Current Medications: I have reviewed the current psychotropics carefully including drug interactions. Risk benefit ratio favors no change other than as noted in my dictated progress note. Diagnosis: Problems: (1) Anxiety disorder (2) Dementia in Alzheimer's disease with delusions (3) Dementia in Alzheimer's disease with depression (4) Dementia, vascular, with delusions (5) Dementia, vascular, with depression (6) Bipolar affective, mixed, sev w/ psych WANDA NDIAYE MD Jun 12, 2019 21:41
--- NOTE | 2019-06-13 00:39 | NUR ---
Patient asleep at time of medication administration and assessments. Patient was calm, compliant and cooperative. Patient did moan and groan and complain a bit but ultimately, compliant. No other notable behaviors at this time.
[2019-06-13 05:41] VITALS: BP 138/78
[2019-06-13] MEDS: IPRATRPIUM/ALBUTEROL 0.5/2.5MG 3 ML NEBU. NEB SCH ×5 (06:00→20:14)
[2019-06-13] MEDS: PANTOPRAZOLE 40 MG TABLET. PO SCH (08:51)
[2019-06-13] MEDS: CARVEDILOL 6.25 MG TABLET PO SCH ×2 (08:51→17:12)
[2019-06-13] MEDS: SUCRALFATE 1 GM TABLET. PO SCH ×4 (08:51→20:21)
[2019-06-13] MEDS: ASPIRIN 81 MG TAB.CHEW PO SCH (08:52)
[2019-06-13] MEDS: SPIRONOLACTONE 25 MG TABLET PO SCH (08:52)
[2019-06-13] MEDS: CIPROFLOXACIN HCL 250 MG TABLET PO SCH ×2 (08:52→20:21)
[2019-06-13] MEDS: busPIRone 5 MG TABLET. PO SCH ×3 (08:52→20:21)
[2019-06-13] MEDS: DOCUSATE SODIUM 100 MG CAPSULE PO SCH ×2 (08:52→20:21)
[2019-06-13] MEDS: MIRABEGRON 25 MG TAB.ER.24H PO SCH (08:53)
[2019-06-13] MEDS: LOSARTAN 50 MG TABLET. PO SCH (08:53)
[2019-06-13] MEDS: amLODIPine BESYLATE 5 MG TABLET PO SCH (08:53)
[2019-06-13] MEDS: CLOPIDOGREL BISULFATE 75 MG TABLET PO SCH (08:53)
[2019-06-13] MEDS: PSYLLIUM SEED (WITH SUGAR) PACKET. PO SCH ×2 (08:53→20:22)
[2019-06-13] MEDS: POTASSIUM CHLORIDE 20 MEQ TABLET.ER. PO SCH (08:53)
[2019-06-13] MEDS: CYANOCOBALAMIN (VITAMIN B-12) 1,000 MCG TABLET. PO SCH (08:54)
[2019-06-13] MEDS: CHOLECALCIFEROL (VITAMIN D3) 1,000 UNIT TABLET PO SCH (08:54)
[2019-06-13] MEDS: traMADol 50 MG TABLET PO SCH ×2 (08:54→20:22)
[2019-06-13] MEDS: QUEtiapine 25 MG TABLET. PO SCH ×2 (08:54→17:12)
--- NOTE | 2019-06-13 12:54 | NUR ---
Patient has had a good morning, took medications, allowed for morning assessment. No agitation noted, patient still has audible wheezes, gave morning breathing treatment. A repeat chest x-ray was done yesterday. No agitation noted, pt denies pain. Will continue to monitor.
[2019-06-13] MEDS: MAG HYDROX/AL HYDROX/SIMETH 30 ML ORAL.SUSP PO PRN (15:28)
--- NOTE | 2019-06-13 15:29 | NUR ---
Patient's stomach was hurting him, PRN emeterio given @0772. Patient currently sitting in the black. Will continue to monitor.
[2019-06-13 16:11] VITALS: BP 123/72
[2019-06-13] MEDS: DIVALPROEX ER 500 MG TAB.ER.24H PO SCH (20:21)
[2019-06-13] MEDS: TAMSULOSIN 0.4 MG CAP.ER.24H. PO SCH (20:21)
[2019-06-13] MEDS: MAG HYDROX/AL HYDROX/SIMETH 30 ML ORAL.SUSP PO SCH (20:22)
--- NOTE | 2019-06-13 21:35 | PDOC ---
Exam Note: José Miguel Note: Please also refer to the separate dictated note~for this date of service dictated separately.~Patient seen individually. Discussed the patient with Nursing staff reviewed the chart.~Reviewed interim history and current functioning. Reviewed vital signs,~Labs/ Radiology~and current medications noted below. Continue current treatment with the changes noted in the dictated addendum note Assessment: Vital Signs/I&O: Vital Signs Date Time Temp Pulse Resp B/P (MAP) Pulse Ox O2 Delivery O2 Flow Rate FiO2 06/13/19 20:22 95 06/13/19 20:17 Room Air 06/13/19 17:12 60 123/72 06/13/19 16:11 97.6 18 I & O 06/12/19 06/12/19 06/13/19 14:59 22:59 06:59 Intake Total 480 ml 240 ml Balance 480 ml 240 ml Current Medications: I have reviewed the current psychotropics carefully including drug interactions. Risk benefit ratio favors no change other than as noted in my dictated progress note. Diagnosis: Problems: (1) Anxiety disorder (2) Dementia in Alzheimer's disease with delusions (3) Dementia in Alzheimer's disease with depression (4) Dementia, vascular, with delusions (5) Dementia, vascular, with depression (6) Bipolar affective, mixed, sev w/ psych WANDA NDIAYE MD Jun 13, 2019 21:35
--- NOTE | 2019-06-14 00:57 | PN ---
DATE: 06/11/2019 PSYCHIATRIC PROGRESS NOTE This late entry 06/11/2019 covers the elements not covered in my initial note. SUBJECTIVE: I met with the patient in the evening. Per RUTHY Mendoza, the patient slept 8-1/2 hours previous night. He has been withdrawn, not agitated, aggressive, and compliant with medications. REVIEW OF SYSTEMS: Ambulation impaired, in wheelchair. No CV, , pulmonary, eye system symptoms on review. Reliability fair. MENTAL STATUS EXAM: Oriented to himself and situation. Speech has some latency, coherent. Abstraction fair, computation impaired, language function intact, and attention span short. Mood and affect less anxious and labile, less disruptive. LABORATORY DATA: Reviewed. IMPRESSION: Unchanged from initial note. PLAN: No change from initial note. MAN Gabriela NDIAYE MD DR: JONATAN/andrew JOB#: [id number] / [id number]
[2019-06-14] MEDS: IPRATRPIUM/ALBUTEROL 0.5/2.5MG 3 ML NEBU. NEB SCH ×5 (05:10→20:49)
[2019-06-14 05:50] VITALS: BP 131/61
[2019-06-14] MEDS: SUCRALFATE 1 GM TABLET. PO SCH ×4 (08:10→20:43)
[2019-06-14] MEDS: PANTOPRAZOLE 40 MG TABLET. PO SCH (08:10)
[2019-06-14] MEDS: CARVEDILOL 6.25 MG TABLET PO SCH ×2 (08:11→16:44)
[2019-06-14] MEDS: ASPIRIN 81 MG TAB.CHEW PO SCH (08:11)
[2019-06-14] MEDS: busPIRone 5 MG TABLET. PO SCH ×3 (08:11→20:43)
[2019-06-14] MEDS: SPIRONOLACTONE 25 MG TABLET PO SCH (08:11)
[2019-06-14] MEDS: LOSARTAN 50 MG TABLET. PO SCH (08:12)
[2019-06-14] MEDS: DOCUSATE SODIUM 100 MG CAPSULE PO SCH ×2 (08:12→20:43)
[2019-06-14] MEDS: CIPROFLOXACIN HCL 250 MG TABLET PO SCH ×2 (08:12→20:43)
[2019-06-14] MEDS: MIRABEGRON 25 MG TAB.ER.24H PO SCH (08:13)
[2019-06-14] MEDS: POTASSIUM CHLORIDE 20 MEQ TABLET.ER. PO SCH (08:13)
[2019-06-14] MEDS: PSYLLIUM SEED (WITH SUGAR) PACKET. PO SCH ×2 (08:13→20:42)
[2019-06-14] MEDS: amLODIPine BESYLATE 5 MG TABLET PO SCH (08:14)
[2019-06-14] MEDS: CLOPIDOGREL BISULFATE 75 MG TABLET PO SCH (08:14)
[2019-06-14] MEDS: CYANOCOBALAMIN (VITAMIN B-12) 1,000 MCG TABLET. PO SCH (08:14)
[2019-06-14] MEDS: CHOLECALCIFEROL (VITAMIN D3) 1,000 UNIT TABLET PO SCH (08:14)
[2019-06-14] MEDS: traMADol 50 MG TABLET PO SCH ×2 (08:14→20:46)
[2019-06-14] MEDS: QUEtiapine 25 MG TABLET. PO SCH ×2 (08:14→16:44)
--- NOTE | 2019-06-14 10:12 | NUR ---
Patient was in his room during morning rounding, got up for breakfast with encouragement. Took medications whole, allowed for morning assessment. Patient is still wheezing, said he "still feels bad, but he guesses he's had worse days." Was making jokes with the staff. Did rest some after breakfast. No agitation noted, pt denies pain at this time. Will continue to monitor.
--- NOTE | 2019-06-14 11:10 | PN ---
DATE: 06/12/2019 PSYCHIATRIC PROGRESS NOTE This late entry 06/12/2019 covers elements not covered in my initial note. SUBJECTIVE: I met with the patient evening of 06/12/2019. Staffed at treatment team meeting with the entire team in the morning and the patient's 2 daughters, Jocelynn and Syl attended. We had a lengthy discussion about the patient's diagnosis progress. He is sleeping 8 hours average, much improved from a few days back. He is calm, cooperative, pleasant and not yelling, screaming at staff, agitated. His UTI has been treated and that has been helpful for his moods as well in addition to stabilization of his Depakote and Seroquel. REVIEW OF SYSTEMS: The ambulation impaired, in wheelchair. No CV, , pulmonary, eye system symptoms on review. MENTAL STATUS EXAM: Oriented to himself and situation. Speech coherent, less pressured. Abstraction fair, computation impaired, language function intact, attention span short. Mood and affect less labile, anxious, abrasive and aggressive all have improved. LABORATORY DATA: Reviewed. IMPRESSION: Bipolar disorder, mixed with psychotic features, in partial remission; anxiety disorder, unspecified; mild cognitive impairment. Rest unchanged. PLAN: No change from initial note. Maintain Depakote ER 500 mg at bedtime, Seroquel 25 b.i.d., BuSpar 5 mg t.i.d., Ativan p.r.n., rest unchanged for now. WANDA NDIAYE MD DR: JONATAN/andrew JOB#: [id number] / [id number]
[2019-06-14 15:46] VITALS: BP 106/65
[2019-06-14] MEDS: MAG HYDROX/AL HYDROX/SIMETH 30 ML ORAL.SUSP PO SCH (20:42)
[2019-06-14] MEDS: TAMSULOSIN 0.4 MG CAP.ER.24H. PO SCH (20:43)
[2019-06-14] MEDS: DIVALPROEX ER 500 MG TAB.ER.24H PO SCH (20:43)
--- NOTE | 2019-06-14 23:22 | PDOC ---
Exam Note: José Miguel Note: Please also refer to the separate dictated note~for this date of service dictated separately.~Patient seen individually. Discussed the patient with Nursing staff reviewed the chart.~Reviewed interim history and current functioning. Reviewed vital signs,~Labs/ Radiology~and current medications noted below. Continue current treatment with the changes noted in the dictated addendum note Assessment: Vital Signs/I&O: Vital Signs Date Time Temp Pulse Resp B/P (MAP) Pulse Ox O2 Delivery O2 Flow Rate FiO2 06/14/19 21:46 97 06/14/19 16:44 63 106/65 06/14/19 15:46 98.2 18 06/14/19 05:10 Room Air I & O 06/13/19 06/13/19 06/14/19 15:00 23:00 07:00 Intake Total 480 ml 480 ml Balance 480 ml 480 ml Current Medications: I have reviewed the current psychotropics carefully including drug interactions. Risk benefit ratio favors no change other than as noted in my dictated progress note. Diagnosis: Problems: (1) Anxiety disorder (2) Dementia in Alzheimer's disease with delusions (3) Dementia in Alzheimer's disease with depression (4) Dementia, vascular, with delusions (5) Dementia, vascular, with depression (6) Bipolar affective, mixed, sev w/ psych WANDA NDIAYE MD Jun 14, 2019 23:22
--- NOTE | 2019-06-15 00:21 | NUR ---
Pt withdrawn to room, laying in bed at shift change. Pt calm, pleasant, and appropriate this evening. Pt pleasant and social with this nurse during interaction. Pt SOB at rest, audible wheezes with wheezing throughout all lung lainez, SpO2- 95% on RA, HS breathing treatment administered. Labs ordered for in the morning. Pt cooperative with assessment and compliant with medications administered whole in applesauce.
[2019-06-15 03:20] VITALS: BP 164/80
[2019-06-15] MEDS: LORazepam 0.5 MG TABLET PO PRN (03:21)
[2019-06-15] MEDS: ONDANSETRON ODT 4 MG TAB.RAPDIS PO PRN (03:21)
[2019-06-15] MEDS: MAG HYDROX/AL HYDROX/SIMETH 30 ML ORAL.SUSP PO PRN (03:21)
[2019-06-15] MEDS: HYDROcodone/APAP 5/325MG 1 TAB TABLET PO PRN (03:26)
--- NOTE | 2019-06-15 03:29 | NUR ---
Pt yelling out "Help me!" Staff responded to pt room and pt reported that he had accidentally urinated on his blankets. Staff assisted pt to change his blankets and brief. Pt then began to c/o severe abdominal pain stating "it's never hurt like this". Pt had been coughing when staff entered the room and now appears SOB. Vital signs obtained at this time are WDL. PRN Maalox and PRN Hydrocodone for c/o abdominal pain, PRN Zofran for nausea and PRN Ativan for anxiety administered at this time.
[2019-06-15] MEDS: IPRATRPIUM/ALBUTEROL 0.5/2.5MG 3 ML NEBU. NEB SCH ×4 (05:41→20:17)
[2019-06-15 06:12] VITALS: BP 94/57
--- NOTE | 2019-06-15 06:24 | RAD ---
AP chest. HISTORY: Increased short of breath, wheezing AP view was taken of the chest. Heart is normal in size. There is no effusion. 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 The patient had previous aortic valve replacement. There is linear scarring or atelectasis in the left lung. There is linear scarring on the right without change. No new infiltrates are noted. IMPRESSION: 1. No change from the recent study. Electronically signed by: Ruy Scherer MD (06/15/2019 6:21 AM) [id number]
[2019-06-15] MEDS: CARVEDILOL 6.25 MG TABLET PO SCH ×2 (08:00→17:25)
[2019-06-15] MEDS: PANTOPRAZOLE 40 MG TABLET. PO SCH (08:27)
[2019-06-15] MEDS: SUCRALFATE 1 GM TABLET. PO SCH ×4 (08:27→19:53)
[2019-06-15] MEDS: CIPROFLOXACIN HCL 250 MG TABLET PO SCH (08:28)
[2019-06-15] MEDS: busPIRone 5 MG TABLET. PO SCH ×3 (08:28→19:53)
[2019-06-15] MEDS: ASPIRIN 81 MG TAB.CHEW PO SCH (08:28)
[2019-06-15] MEDS: DOCUSATE SODIUM 100 MG CAPSULE PO SCH ×2 (08:28→19:53)
[2019-06-15] MEDS: POTASSIUM CHLORIDE 20 MEQ TABLET.ER. PO SCH (08:29)
[2019-06-15] MEDS: QUEtiapine 25 MG TABLET. PO SCH ×2 (08:29→17:25)
[2019-06-15] MEDS: CYANOCOBALAMIN (VITAMIN B-12) 1,000 MCG TABLET. PO SCH (08:29)
[2019-06-15] MEDS: MIRABEGRON 25 MG TAB.ER.24H PO SCH (08:29)
[2019-06-15] MEDS: CLOPIDOGREL BISULFATE 75 MG TABLET PO SCH (08:29)
[2019-06-15] MEDS: CHOLECALCIFEROL (VITAMIN D3) 1,000 UNIT TABLET PO SCH (08:30)
[2019-06-15] MEDS: traMADol 50 MG TABLET PO SCH ×2 (08:34→19:53)
[2019-06-15 08:43] LABS: BASO # 0.1 x10^3/uL (0.0-0.2); BASO % 1 % (0-3); EOS # 0.6 x10^3/uL (0.0-0.7); EOS % 5 % (0-3); HEMATOCRIT 32.9 % (39.0-53.0); HEMOGLOBIN 10.6 g/dL (13.0-17.5); LYMPH # 1.8 x10^3/uL (1.0-4.8); LYMPH % 17 % (24-48); MEAN CORPUSCULAR HEMOGLOBIN 30 pg (25-35); MEAN CORPUSCULAR HGB CONC 32 g/dL (31-37); MEAN CORPUSCULAR VOLUME 93 fL (79-100); MONO # 0.8 x10^3/uL (0.0-1.1); MONO % 8 % (0-9); NEUT # 7.5 x10^3uL (1.8-7.7); NEUT % 69 % (31-73); PLATELET COUNT 230 x10^3/uL (140-400); RED BLOOD COUNT 3.55 x10^6/uL (4.30-5.70); RED CELL DISTRIBUTION WIDTH 19.3 % (11.5-14.5); WHITE BLOOD COUNT 10.8 x10^3/uL (4.0-11.0)
[2019-06-15] MEDS: PSYLLIUM SEED (WITH SUGAR) PACKET. PO SCH (09:00)
[2019-06-15] MEDS: amLODIPine BESYLATE 5 MG TABLET PO SCH (09:00)
[2019-06-15] MEDS: LOSARTAN 50 MG TABLET. PO SCH (09:00)
[2019-06-15 09:07] LABS: ALBUMIN 3.2 g/dL (3.4-5.0); ALBUMIN/GLOBULIN RATIO 0.8 (1.0-1.7); GFR 70.8; MAGNESIUM 2.1 mg/dL (1.8-2.4); POTASSIUM 4.7 mmol/L (3.5-5.1); TOTAL BILIRUBIN 0.3 mg/dL (0.2-1.0); TOTAL PROTEIN 7.1 g/dL (6.4-8.2)
--- NOTE | 2019-06-15 12:00 | NUR ---
He is compliant with his medications and assessment. Pt is withdrawn to his room. Pt is calm, cooperative, compliant. No agitation, no aggression, no hallucinations, no delusions.
[2019-06-15 12:13] VITALS: BP 132/90
[2019-06-15] MEDS: SPIRONOLACTONE 25 MG TABLET PO SCH (12:31)
[2019-06-15 15:49] VITALS: BP 105/68
[2019-06-15] MEDS: TAMSULOSIN 0.4 MG CAP.ER.24H. PO SCH (19:52)
[2019-06-15] MEDS: DIVALPROEX ER 500 MG TAB.ER.24H PO SCH (19:52)
[2019-06-15] MEDS: MAG HYDROX/AL HYDROX/SIMETH 30 ML ORAL.SUSP PO SCH (19:53)
--- NOTE | 2019-06-15 20:39 | PDOC ---
Exam Note: José Miguel Note: Please also refer to the separate dictated note~for this date of service dictated separately.~Patient seen individually. Discussed the patient with Nursing staff reviewed the chart.~Reviewed interim history and current functioning. Reviewed vital signs,~Labs/ Radiology~and current medications noted below. Continue current treatment with the changes noted in the dictated addendum note Assessment: Vital Signs/I&O: Vital Signs Date Time Temp Pulse Resp B/P (MAP) Pulse Ox O2 Delivery O2 Flow Rate FiO2 06/15/19 19:53 18 Room Air 06/15/19 17:25 83 105/68 06/15/19 16:45 94 06/15/19 15:49 97.9 I & O 06/14/19 06/14/19 06/15/19 15:00 23:00 07:00 Intake Total 540 ml 200 ml 240 ml Output Total 125 ml Balance 415 ml 200 ml 240 ml Labs: Laboratory Tests Test 06/15/19 06:32 06/15/19 08:15 Glucose (Fingerstick) 96 mg/dL (70-99) White Blood Count 10.8 x10^3/uL (4.0-11.0) Red Blood Count 3.55 x10^6/uL (4.30-5.70) L Hemoglobin 10.6 g/dL (13.0-17.5) L Hematocrit 32.9 % (39.0-53.0) L Mean Corpuscular Volume 93 fL (79-100) Mean Corpuscular Hemoglobin 30 pg (25-35) Mean Corpuscular Hemoglobin Concent 32 g/dL (31-37) Red Cell Distribution Width 19.3 % (11.5-14.5) H Platelet Count 230 x10^3/uL (140-400) Neutrophils (%) (Auto) 69 % (31-73) Lymphocytes (%) (Auto) 17 % (24-48) L Monocytes (%) (Auto) 8 % (0-9) Eosinophils (%) (Auto) 5 % (0-3) H Basophils (%) (Auto) 1 % (0-3) Neutrophils # (Auto) 7.5 x10^3uL (1.8-7.7) Lymphocytes # (Auto) 1.8 x10^3/uL (1.0-4.8) Monocytes # (Auto) 0.8 x10^3/uL (0.0-1.1) Eosinophils # (Auto) 0.6 x10^3/uL (0.0-0.7) Basophils # (Auto) 0.1 x10^3/uL (0.0-0.2) Sodium Level 132 mmol/L (136-145) L Potassium Level 4.7 mmol/L (3.5-5.1) Chloride Level 98 mmol/L (98-107) Carbon Dioxide Level 23 mmol/L (21-32) Anion Gap 11 (6-14) Blood Urea Nitrogen 24 mg/dL (8-26) Creatinine 1.0 mg/dL (0.7-1.3) Estimated GFR (Cockcroft-Gault) 70.8 BUN/Creatinine Ratio 24 (6-20) H Glucose Level 98 mg/dL (70-99) Calcium Level 9.0 mg/dL (8.5-10.1) Magnesium Level 2.1 mg/dL (1.8-2.4) Total Bilirubin 0.3 mg/dL (0.2-1.0) Aspartate Amino Transferase (AST) 12 U/L (15-37) L Alanine Aminotransferase (ALT) 8 U/L (16-63) L Alkaline Phosphatase 75 U/L (46-116) Ammonia < 10 mcmol/L (11-34) L JM-Mnp-R-Type Natriuretic Peptide 724 pg/mL (0-449) H Total Protein 7.1 g/dL (6.4-8.2) Albumin 3.2 g/dL (3.4-5.0) L Albumin/Globulin Ratio 0.8 (1.0-1.7) L Current Medications: I have reviewed the current psychotropics carefully including drug interactions. Risk benefit ratio favors no change other than as noted in my dictated progress note. Diagnosis: Problems: (1) Anxiety disorder (2) Dementia in Alzheimer's disease with delusions (3) Dementia in Alzheimer's disease with depression (4) Dementia, vascular, with delusions (5) Dementia, vascular, with depression (6) Bipolar affective, mixed, sev w/ psych WANDA NDIAYE MD Jun 15, 2019 20:39
--- NOTE | 2019-06-15 23:02 | NUR ---
Nursing Note The patient was calm and compliant with his medication and assessment. The patient is currently sleeping in his room.
--- NOTE | 2019-06-16 00:57 | NUR ---
Nursing Note The patient was found sitting on the toilet in his room complaining of difficulty having a bowel movement.The patient requested PRN medication to help him have a BM.The patient was given PRN Milk of Magnesia.
[2019-06-16] MEDS: ONDANSETRON ODT 4 MG TAB.RAPDIS PO PRN (04:24)
[2019-06-16] MEDS: IPRATRPIUM/ALBUTEROL 0.5/2.5MG 3 ML NEBU. NEB SCH ×4 (05:41→23:18)
[2019-06-16 06:15] VITALS: BP 102/62
[2019-06-16] MEDS: CARVEDILOL 6.25 MG TABLET PO SCH ×2 (08:15→17:01)
[2019-06-16] MEDS: SUCRALFATE 1 GM TABLET. PO SCH ×4 (08:15→20:16)
[2019-06-16] MEDS: PANTOPRAZOLE 40 MG TABLET. PO SCH (08:15)
[2019-06-16] MEDS: ASPIRIN 81 MG TAB.CHEW PO SCH (08:16)
[2019-06-16] MEDS: DOCUSATE SODIUM 100 MG CAPSULE PO SCH ×2 (08:16→20:15)
[2019-06-16] MEDS: SPIRONOLACTONE 25 MG TABLET PO SCH (08:16)
[2019-06-16] MEDS: busPIRone 5 MG TABLET. PO SCH ×3 (08:16→20:15)
[2019-06-16] MEDS: POTASSIUM CHLORIDE 20 MEQ TABLET.ER. PO SCH (08:16)
[2019-06-16] MEDS: MIRABEGRON 25 MG TAB.ER.24H PO SCH (08:17)
[2019-06-16] MEDS: CHOLECALCIFEROL (VITAMIN D3) 1,000 UNIT TABLET PO SCH (08:17)
[2019-06-16] MEDS: amLODIPine BESYLATE 5 MG TABLET PO SCH (08:17)
[2019-06-16] MEDS: CYANOCOBALAMIN (VITAMIN B-12) 1,000 MCG TABLET. PO SCH (08:17)
[2019-06-16] MEDS: CLOPIDOGREL BISULFATE 75 MG TABLET PO SCH (08:17)
[2019-06-16] MEDS: QUEtiapine 25 MG TABLET. PO SCH ×2 (08:17→17:03)
[2019-06-16] MEDS: traMADol 50 MG TABLET PO SCH ×2 (08:20→20:16)
[2019-06-16] MEDS: LOSARTAN 50 MG TABLET. PO SCH ×2 (09:00→17:00)
--- NOTE | 2019-06-16 10:29 | NUR ---
LYNDSAY faxed updated pt. paperwork to Kaylen, [facility], in preparation for pt. discharge scheduled for 06/17/2019.
--- NOTE | 2019-06-16 10:31 | NUR ---
[facility] Social Work Discharge Planning Form Patient Name EMILY BELTRE Admit Date: 05/22/2019 DISCHARGE PLAN Discharge Destination: [facility] Care Assessment: NA Level II Assessment: NA Transportation: Express to transport pt. on 06/17/2019 between 11:00 a.m. and 11:30 a.m. Special Instructions/Notes: Please fax discharge paperwork and medication list to [phone]. DISCHARGE TO FACILITY Facility: [facility] Address: [address] [place] [id number] Contact Name: LYNDSAY Abdullahi PCP: Dr. Garcia Psychiatrist: Dr. Vega
--- NOTE | 2019-06-16 10:44 | NUR ---
Pt is withdrawn to his room. Pt is calm, cooperative, compliant. He is compliant with his medications and assessment. No agitation, no aggression, no hallucinations, no delusions.
[2019-06-16 16:26] VITALS: BP 109/55
[2019-06-16] MEDS: TAMSULOSIN 0.4 MG CAP.ER.24H. PO SCH (20:15)
[2019-06-16] MEDS: DIVALPROEX ER 500 MG TAB.ER.24H PO SCH (20:15)
[2019-06-16] MEDS: MAG HYDROX/AL HYDROX/SIMETH 30 ML ORAL.SUSP PO SCH (20:15)
--- NOTE | 2019-06-16 20:38 | PDOC ---
Exam Note: José Miguel Note: Please also refer to the separate dictated note~for this date of service dictated separately.~Patient seen individually. Discussed the patient with Nursing staff reviewed the chart.~Reviewed interim history and current functioning. Reviewed vital signs,~Labs/ Radiology~and current medications noted below. Continue current treatment with the changes noted in the dictated addendum note Assessment: Vital Signs/I&O: Vital Signs Date Time Temp Pulse Resp B/P (MAP) Pulse Ox O2 Delivery O2 Flow Rate FiO2 06/16/19 20:16 95 06/16/19 17:01 82 109/55 06/16/19 16:26 98.2 18 06/16/19 16:20 Room Air I & O 06/15/19 06/15/19 06/16/19 15:00 23:00 07:00 Intake Total 720 ml 120 ml 120 ml Balance 720 ml 120 ml 120 ml Current Medications: I have reviewed the current psychotropics carefully including drug interactions. Risk benefit ratio favors no change other than as noted in my dictated progress note. Diagnosis: Problems: (1) Anxiety disorder (2) Dementia in Alzheimer's disease with delusions (3) Dementia in Alzheimer's disease with depression (4) Dementia, vascular, with delusions (5) Dementia, vascular, with depression (6) Bipolar affective, mixed, sev w/ psych WANDA NDIAYE MD Jun 16, 2019 20:38
--- NOTE | 2019-06-16 22:47 | PN ---
DATE: 06/13/2019 PSYCHIATRIC PROGRESS NOTE This late entry 06/13/2019 covers the elements not covered in my initial note. SUBJECTIVE: I met with the patient in the evening of 06/13/2019. Per RUTHY Palmer, the patient slept 9 hours previous night. He has had a good day. Chest x-ray was repeated. We will defer to Dr. Leung, compliant with medications. No PRNs given. REVIEW OF SYSTEMS: Ambulation impaired, in wheelchair. No CV, , pulmonary, eye, ENT system symptoms on review. MENTAL STATUS EXAM: Oriented to himself and situation. Speech is coherent, has some latency. Abstraction fair, computation impaired, language function intact, attention span short. Mood and affect somewhat withdrawn. LABORATORY DATA: Reviewed. IMPRESSION: Unchanged from initial note. PLAN: No change from initial note. MAN Gabriela NDIAYE MD DR: JONATAN/andrew JOB#: [id number] / [id number]
--- NOTE | 2019-06-16 23:23 | NUR ---
Pt sitting quietly in the hallway at shift change. Pt calm, pleasant, and interactive when approached. Pt cooperative with assessment and compliant with medications administered whole in applesauce.
--- NOTE | 2019-06-16 23:54 | PN ---
DATE: PSYCHIATRIC PROGRESS NOTE This late entry 06/15/2019 covers the elements not covered in my initial note. SUBJECTIVE: I met with the patient in the evening of 06/15/2019. Overall, the patient has been fairly cooperative, slept reasonably well. REVIEW OF SYSTEMS: Ambulation impaired, in wheelchair. No CV, , pulmonary, eye, ENT system symptoms on review. MENTAL STATUS EXAM: Oriented to himself and situation. Speech is coherent, has some latency. Abstraction fair, computation impaired, language function intact, attention span short. Mood and affect less labile and anxious. LABORATORY DATA: Reviewed. IMPRESSION: Unchanged from initial note. PLAN: No change from initial note. MAN Gabriela NDIAYE MD DR: JONATAN/andrew JOB#: [id number] / [id number]
[2019-06-17] MEDS ORDERED: ASPI-630 PO (00:30)
[2019-06-17] MEDS ORDERED: DIVA500T17 PO (00:31)
[2019-06-17] MEDS ORDERED: LOSA25TA11 PO (00:32)
[2019-06-17] MEDS ORDERED: MAGN2400 PO (00:32)
[2019-06-17] MEDS ORDERED: MAG355OR11 PO (00:32)
[2019-06-17] MEDS ORDERED: METH28OI2 TP (00:33)
[2019-06-17] MEDS ORDERED: PANT40TA5 PO (00:33)
[2019-06-17] MEDS ORDERED: BUSP5TAB PO (00:34)
[2019-06-17] MEDS ORDERED: QUET25TA5 PO (00:34)
--- NOTE | 2019-06-17 01:39 | PN ---
DATE: 06/14/2019 PSYCHIATRIC PROGRESS NOTE This late entry 06/14/2019 covers elements not covered in my initial note. SUBJECTIVE: I met with the patient the evening of 06/14/2019. The patient slept 7-1/2 hours the previous night. He has been somewhat withdrawn. He has some wheezing. He is on Cipro for UTI, receives breathing treatments. REVIEW OF SYSTEMS: Ambulation is impaired, in wheelchair. No CV, , pulmonary, eye system symptoms on review other than above. MENTAL STATUS EXAM: Oriented to himself and situation. Speech is coherent. Abstraction is fair. Computation is impaired. Language function is intact. Attention span is short. Mood and affect are less labile. LABORATORY DATA: Reviewed. IMPRESSION: Unchanged from initial note. PLAN: No change from initial note. MAN Gabriela NDIAYE MD DR: JONATAN/andrew JOB#: [id number] / [id number]
[2019-06-17 05:06] VITALS: BP 128/51
[2019-06-17] MEDS: IPRATRPIUM/ALBUTEROL 0.5/2.5MG 3 ML NEBU. NEB SCH ×2 (05:29→10:01)
[2019-06-17] MEDS: SUCRALFATE 1 GM TABLET. PO SCH (08:11)
[2019-06-17] MEDS: PANTOPRAZOLE 40 MG TABLET. PO SCH (08:11)
[2019-06-17] MEDS: CARVEDILOL 6.25 MG TABLET PO SCH (08:12)
[2019-06-17] MEDS: SPIRONOLACTONE 25 MG TABLET PO SCH (08:12)
[2019-06-17] MEDS: busPIRone 5 MG TABLET. PO SCH (08:12)
[2019-06-17 08:13] VITALS: BP 128/51
[2019-06-17] MEDS: ASPIRIN 81 MG TAB.CHEW PO SCH (08:13)
[2019-06-17] MEDS: LOSARTAN 50 MG TABLET. PO SCH (08:13)
[2019-06-17] MEDS: DOCUSATE SODIUM 100 MG CAPSULE PO SCH (08:13)
[2019-06-17] MEDS: CHOLECALCIFEROL (VITAMIN D3) 1,000 UNIT TABLET PO SCH (08:14)
[2019-06-17] MEDS: CLOPIDOGREL BISULFATE 75 MG TABLET PO SCH (08:14)
[2019-06-17] MEDS: MIRABEGRON 25 MG TAB.ER.24H PO SCH (08:14)
[2019-06-17] MEDS: POTASSIUM CHLORIDE 20 MEQ TABLET.ER. PO SCH (08:14)
[2019-06-17] MEDS: CYANOCOBALAMIN (VITAMIN B-12) 1,000 MCG TABLET. PO SCH (08:14)
[2019-06-17] MEDS: QUEtiapine 25 MG TABLET. PO SCH (08:14)
[2019-06-17] MEDS: traMADol 50 MG TABLET PO SCH (08:18)
--- NOTE | 2019-06-17 09:00 | NUR ---
No agitation, no aggression, no hallucinations, no delusions. Pt is withdrawn to his room. Pt is calm, cooperative, compliant. He is compliant with his medications and assessment.
--- NOTE | 2019-06-17 09:25 | NUR ---
Transition Record was faxed to follow-up provider with the following elements: Reason for admission, procedures, tests, principal diagnosis, pending studies, patient instructions, 05/03 contact information for unit, phone number to obtain pending test results, plan for follow-up care, physician follow-up, advanced directive information, and medication list with dose, duration and instructions. This information was included in the following documents: History and physical, lab results, study results, progress notes, social work planning form, DC instruction form, patient visit summary, and medication reconciliation form. Date & time record faxed:06/17/19 0037 Record faxed to:[facility] Record discussed with/ report given to: RUTHY Guevara Informed her of the following things. -CBC, CMP, Valproic acid level every month beginning 07/06/19 -BMP 06/20/19 if NA is greater than or equal to 135 then fluid restriction can be dc'd -TID carafate may be dc'd on 06/23/19
--- NOTE | 2019-06-17 20:33 | PDOC ---
Exam Note: José Miguel Note: Please also refer to the separate dictated note~for this date of service dictated separately.~Patient seen individually. Discussed the patient with Nursing staff reviewed the chart.~Reviewed interim history and current functioning. Reviewed vital signs,~Labs/ Radiology~and current medications noted below. Continue current treatment with the changes noted in the dictated addendum note Assessment: Vital Signs/I&O: Vital Signs Date Time Temp Pulse Resp B/P (MAP) Pulse Ox O2 Delivery O2 Flow Rate FiO2 06/17/19 10:02 97 Room Air 06/17/19 09:18 20 06/17/19 08:13 68 128/51 06/17/19 05:06 97.8 I & O 06/16/19 06/16/19 06/17/19 15:00 23:00 07:00 Intake Total 480 ml 420 ml Balance 480 ml 420 ml Current Medications: I have reviewed the current psychotropics carefully including drug interactions. Risk benefit ratio favors no change other than as noted in my dictated progress note. Diagnosis: Problems: (1) Anxiety disorder (2) Dementia in Alzheimer's disease with delusions (3) Dementia in Alzheimer's disease with depression (4) Dementia, vascular, with delusions (5) Dementia, vascular, with depression (6) Bipolar affective, mixed, sev w/ psych WANDA NDIAYE MD Jun 17, 2019 20:33
--- NOTE | 2019-06-18 17:28 | DS ---
DATE OF DISCHARGE: 06/17/2019 PSYCHIATRIC DISCHARGE NOTE This late entry 06/17/2019 covers elements not covered in my initial note. REASON FOR ADMISSION: Please refer to the admission history for details. Briefly, the patient is an 88-year-old male referred to us from [facility] by his primary care physician and Dr. Megan Vega, his psychiatrist with a diagnosis of bipolar disorder, being verbally abusive to staff and peers where the peers were fearful of him. He was refusing cares, labs, meds, had frequent falls, marked somatic complaints, had failed outpatient psychiatric interventions with Dr. Vega, ultimately resulting in this referral. SIGNIFICANT FINDINGS AND CLINICAL COURSE: Following admission, the patient was seen daily individually by myself from a psychiatric standpoint, medical followup with Dr. Leung. Initially, he was extremely labile in his mood agitated, grandiose, using profanities towards staff, totally out of control. Adjustments were made in his psychotropics. He did have a UTI, which was treated and responded to a combination of Depakote ER 500 mg at bedtime with a therapeutic valproic acid level of 53, Seroquel 25 mg b.i.d. at 9:00 a.m. and 5:00 p.m., BuSpar 5 mg t.i.d., Ativan p.r.n. Prior to discharge on 06/17/2019, ambulation impaired, in wheelchair. No CV, , pulmonary, eye system symptoms on review. MENTAL STATUS EXAM: Oriented to himself and situation. Speech has some latency, coherent. Abstraction fair, computation impaired, language function intact, attention span short. Mood and affect much improved, less labile. No suicidal or homicidal ideation. CONDITION AT DISCHARGE: Improved. FINAL DIAGNOSES: Bipolar 1 disorder, mixed with psychotic features, in partial remission; mild cognitive impairment; anxiety disorder, unspecified; impulse control disorder, unspecified; status post urinary tract infection. Rest unchanged from admission. DISCHARGE MEDICATIONS: Please refer to the MRAD. DISCHARGE INSTRUCTIONS: Outpatient psychiatric and medical followup at the [facility]. Time for discharge day management greater than 30 minutes. WANDA NDIAYE MD DR: JONATAN/andrew JOB#: [id number] / [id number]
--- NOTE | 2019-06-19 05:21 | PN ---
DATE: 06/16/2019 PSYCHIATRIC PROGRESS NOTE This late entry 06/16/2019 covers elements not covered in my initial note. SUBJECTIVE: I met with the patient evening of 06/16/2019. The patient slept 4-1/4 hours previous night per RUTHY Romeo. He slept off and on during the day, calling staff bitches at times, but much less agitated and aggressive as compared to a few days back. I met with him in his room. REVIEW OF SYSTEMS: Ambulation impaired, in wheelchair. No CV, , pulmonary, eye, ENT system symptoms on review. MENTAL STATUS EXAM: Oriented to himself and situation. Speech is coherent, very pleasant with me, abstraction fair, computation impaired, language function intact, attention span short. Mood and affect withdrawn at times. LABORATORY DATA: Reviewed. IMPRESSION: Unchanged from initial note. PLAN: No change from initial note. Discharged back to [facility] on 06/17/2019. WANDA NDIAYE MD DR: JONATAN/andrew JOB#: [id number] / [id number]
== END 2019-06-17 11:03 | DRG 885 ==
LOC: ER 19:00 → GEROPSY 23:48 → ER 23:48
PROVIDERS: ADMIT Psychiatry & Neurology Psychiatry; ATTEND Psychiatry & Neurology Psychiatry
DX: F31.64 Bipolar disorder, current episode mixed, severe, with psychotic features (principal); F01.51 Vascular dementia, unspecified severity, with behavioral disturbance; F02.81 Dementia in other diseases classified elsewhere, unspecified severity, with behavioral disturbance; N39.0 Urinary tract infection, site not specified; F41.9 Anxiety disorder, unspecified; F63.9 Impulse disorder, unspecified; G30.9 Alzheimer's disease, unspecified; K44.9 Diaphragmatic hernia without obstruction or gangrene; I50.9 Heart failure, unspecified; E78.5 Hyperlipidemia, unspecified; F80.81 Childhood onset fluency disorder; G89.29 Other chronic pain; I25.10 Atherosclerotic heart disease of native coronary artery without angina pectoris; Z79.899 Other long term (current) drug therapy; Z87.891 Personal history of nicotine dependence; Z95.1 Presence of aortocoronary bypass graft; Z91.030 Bee allergy status
CPT/HCPCS: 36415; 71045; 71046; 73502; 74176; 80048; 80053; 80061; 80164; 81001; 82140; 82306; 82947; 83036; 83540; 83550; 83605; 83690; 83735; 83880; 84436; 84443; 84480; 84484; 85025; 85610; 85730; 86592; 87086; 87186; 93005; 94640; 94760; 96372; J0696; J7620; Q0162; 99285-25